=== PATIENT | male | born 1945 | race Caucasian/White ===

== ENCOUNTER 2017-10-15 13:35 | Inpatient (IN) ==
[2017-10-15 14:58] LABS: Basophils % 0.2 %; Eosinophils % 0.2 %; Hematocrit 28.5 % (37.5-50.1); Hemoglobin 9.5 g/dL (12.9-16.9); Immature Granulocytes % 0.5 % (0-4); Lymphocytes # 0.3 K/mcL (0.6-4.6); Lymphocytes % 7.1 %; Mean Corpuscular HGB Conc 33.3 g/dL (31.6-35.5); Mean Corpuscular Hemoglobin 30.9 pg (28.0-33.3); Mean Corpuscular Volume 92.8 fL (83.0-100.0); Mean Platelet Volume 9.5 fL (9.4-12.4); Monocytes # 0.3 K/mcL (0.0-1.3); Monocytes % 7.1 %; Neutrophils # 3.6 K/mcL (1.6-8.9); Platelet Count 305 K/mcL (140-400); Red Blood Count 3.07 M/mcL (4.19-5.50); Red Cell Distribution Width 16.6 % (11.5-14.5); Segmented Neutrophils % 84.9 %
[2017-10-15 15:04] LABS: INR 1.9; Prothrombin Time 20.4 Seconds (9.4-12.1)
[2017-10-15 15:18] LABS: Alanine Aminotransferase 79 Units/L (7-52); Albumin 3.3 g/dL (3.5-5.7); Albumin/Globulin Ratio 1.1 (1.1-2.2); Alkaline Phosphatase 231 Units/L (34-104); Aspartate Amino Transferase 97 Units/L (13-39); BUN/Creatinine Ratio 24 (6-26); Bilirubin,Total 2.2 mg/dL (0.3-1.0); Blood Urea Nitrogen 34 mg/dL (8-23); Calcium 8.9 mg/dL (8.6-10.3); Carbon Dioxide 24 mEq/L (23-29); Chloride 93 mEq/L (98-107); Globulin 3.1 g/dL (2.4-3.5); Glucose 157 mg/dL (70-105); Osmolality,Calculated 269 (280-300); Potassium 4.6 mEq/L (3.5-5.1); Sodium 124 mEq/L (136-145); Total Protein 6.4 g/dL (6.4-8.9); eGFR For African Americans > 60 (> 60); eGFR For Non-African Americans 50 (> 60)
[2017-10-15 15:39] LABS: Troponin I 0.04 ng/mL (< 0.04)
--- NOTE | 2017-10-15 16:54 | Electrocardiograph Report ---
[address] [address] Test Date: 2017-10-15 Pat Name: Cristofer Romero Department: 104 Room: Gender: M Chipper: : 1945 Requested By: Tawanda Fairbanks Order Number: [id number] Reading MD: Annelise Dexter Measurements Intervals [place] Rate: 96 P: RI: 0 QRS: 82 QRSD: 126 T: -74 QT: 362 QTc: 415 Interpretive Statements ATRIAL FIBRILLATION WITH ABERRANT CONDUCTION OR VENTRICULAR PREMATURE COMPLEXES INFERIOR MYOCARDIAL INFARCTION, OF INDETERMINATE AGE MODERATE T-WAVE ABNORMALITY, CONSIDER LATERAL ISCHEMIA Electronically Signed On 10-15-2017 16:52:41 EDT by Annelise Dexter
[2017-10-15] MEDS ORDERED: Hydrocortisone Sodium Succ 100 MG/2 ML VIAL IVP ONE (18:47)
--- NOTE | 2017-10-15 18:48 | Emergency Department Note ---
Disposition Clinical Impression: Hyponatremia, Elevated troponin, Generalized weakness Hypotension Qualifiers: Hypotension type: unspecified hypotension type Qualified Code(s): I95.9 - Hypotension, unspecified Anemia Qualifiers: Anemia type: unspecified type Qualified Code(s): D64.9 - Anemia, unspecified Disposition: Admitted As Inpatient Condition: Good Referrals: Franny Stubbs [employer] [Primary Care Provider] - Forms: ED Satisfaction Letter, Work/School Release Time of Disposition: 20:41 General Adult HPI - General Chief complaint: ED General Medical Stated complaint: Everything is wrong Time Seen by Provider: 10/15/17 18:05 Source: patient Mode of arrival: ambulatory Limitations: no limitations Nursing Notes Reviewed: Yes Vital Signs Reviewed: Yes - History of Present Illness HPI Narrative: 72-year-old male arrives to the emergency department with generalized weakness, dizziness, not feeling well. The patient states this is been ongoing for the past few weeks. The patient also states that over the past few days he was noted to be hypotensive with a home blood pressure medicine with a systolic blood pressure in 80s to 90s. The patient states he normally runs below 120s taking medications. The patient states that he went to PCP after calling after noting a hypertensive episode at home. He should systolic was 90 at PCP office and was instructed to come to the emergency department for further evaluation. There was concern for possible infection as well. Pain Scale: 3 - Related Data Home Medications Medication Instructions Recorded Confirmed ALPRAZolam [Xanax 0.5 MG Tablet] 0.5 mg PO BID #0 09/18/15 10/15/17 Ascorbate Calcium [Vitamin C] 1,000 mg PO DAILY #0 09/18/15 10/15/17 Aspirin 81 mg PO DAILY #0 09/18/15 10/15/17 Docusate [Colace] 200 mg PO DAILY #0 09/18/15 10/15/17 Doxepin HCl 50 mg PO BID #0 09/18/15 10/15/17 Furosemide [Lasix] 40 mg PO BID #0 09/18/15 10/15/17 Gabapentin [Neurontin] 300 mg PO BID #0 09/18/15 10/15/17 Multivit-Min/FA/Lycopen/Lutein 1 tab PO DAILY #0 09/18/15 10/15/17 [Adults 50+ Multivitamin Tablet] Potassium Chloride [K-Tab ER] 10 meq PO DAILY #0 09/18/15 10/15/17 Rosuvastatin [Crestor] 20 mg PO HS #0 09/18/15 10/15/17 Zolpidem [Ambien] 10 mg PO HS #0 09/18/15 10/15/17 Acetaminophen [Tylenol] 500 mg PO BID 01/23/16 10/15/17 Capsaicin [Arthritis Pain Relief] 1 appl TP TID PRN 01/23/16 10/15/17 Carboxymethylcellulose Sodium 1 drop BOTH EYES QID 01/23/16 10/15/17 [Refresh Tears] Nitroglycerin [Nitrostat] 0.4 mg SL Q5M PRN 01/23/16 10/15/17 Pantoprazole Sodium [Protonix] 40 mg PO DAILY 01/23/16 10/15/17 Insulin Glargine,Hum.rec.anlog 55 unit SQ HS 02/15/17 10/15/17 [Lantus Solostar] Fluticasone Propionate Nasal 2 spray NS DAILY PRN 04/11/17 10/15/17 [Flonase] Isosorbide MONOnitrate [Isosorbide 120 mg PO DAILY 04/11/17 10/15/17 Mononitrate ER] Loratadine [Allergy Relief] 10 mg PO DAILY 04/11/17 10/15/17 Metoprolol Succinate 250 mg PO DAILY 04/11/17 10/15/17 [place]-3/Dha/Epa/Fish Oil [Fish Oil 1,000 mg PO DAILY 04/11/17 10/15/17 1,000 mg Softgel] Ferrous Sulfate [Iron] 325 mg PO BID 10/15/17 10/15/17 Levothyroxine [Synthroid] 125 mcg PO 0630 10/15/17 10/15/17 Lisinopril 2.5 mg PO DAILY 10/15/17 10/15/17 glipiZIDE [Glipizide] 20 mg PO BID 10/15/17 10/15/17 Previous Rx's Medication Instructions Recorded Apixaban [Eliquis] 2.5 mg PO BID #90 tablet 01/26/16 Allergies Allergy/AdvReac Type Severity Reaction Status Date / Time tamsulosin Allergy Rash Verified 08/15/17 10:33 Penicillins AdvReac Mild Anaphylaxis Verified 08/15/17 10:33 All systems ED: reviewed and negative except as stated. Constitutional: Reports: chills, weakness. Denies: fever ENT ED: Denies: ear pain, congestion Cardiovascular: Denies: chest pain Respiratory: Reports: dyspnea. Denies: cough, wheezes Gastrointestinal: Denies: abdominal pain, nausea, vomiting, diarrhea, constipation Genitourinary: Reports: urgency, dysuria, frequency. Denies: hematuria, discharge, testicular pain Musculoskeletal: Denies: back pain, neck pain Integumentary: Denies: rash Neurological: Reports: weakness, vertigo. Denies: headache, numbness, paresthesias, confusion, abnormal gait Endocrine: Reports: fatigue Past Medical History - Past Medical History Attestation: Yes The following information was validated with the patient. Source: patient Medical history: Reports: aortic aneurysm, arthritis, atrial fibrillation, cardiomyopathy, CHF, coronary artery disease, DVT, diabetes, GERD, hyperlipidemia, hypertension, myocardial infarction, peripheral artery disease, thyroid disease, other Surgical history: Reports: angioplasty/stent, appendectomy, cholecystectomy, coronary bypass (CABG), LE Bypass, LE stent(s), LE vascular intervention, other Psychiatric history: Reports: anxiety, depression - Social History Smoking Status: Former smoker Smokeless Tobacco Status: No Alcohol use: Reports: heavy Drug use: Reports: none Physical Exam - General Limitations: no limitations General appearance: alert, in no apparent distress - Head Head exam: atraumatic, normocephalic, normal inspection - Neck Neck exam: Present: normal inspection, full ROM, trachea midline - Chest Chest inspection: Present: normal inspection, symmetric chest wall rise - Respiratory Respiratory exam: Present: normal lung sounds bilaterally - Cardiovascular Cardiovascular exam: Present: regular rate, normal rhythm, normal heart sounds - Abdominal Exam Abdominal exam: Present: soft, Non-Tender. Absent: tenderness, distention, guarding, rebound, rigidity - Extremities Exam Extremities exam: Present: normal inspection, full ROM. Absent: tenderness, pedal edema - Neurological Exam Neurological exam: Present: alert, oriented X3, CN II-XII intact, normal gait. Absent: motor sensory deficit Course Vital Signs Temperature 100.2 F H 10/15/17 13:56 Pulse Rate 90 10/15/17 13:56 Respiratory Rate 14 10/15/17 13:56 Blood Pressure 95/65 10/15/17 13:56 O2 Sat by Pulse Oximetry 94 10/15/17 13:56 Temperature 100.2 F H 10/15/17 13:56 Pulse Rate 74 10/15/17 18:43 Respiratory Rate 18 10/15/17 18:43 Blood Pressure 107/68 10/15/17 18:43 O2 Sat by Pulse Oximetry 97 10/15/17 18:43 Oxygen Delivery Oxygen Delivery Room Air Medical Decision Making - MDM Narrative Medical decision making narrative: Patient's workup here in the emergency department demonstrates a large number of electrolyte abnormalities to include hyponatremia, hypochloremia, elevated creatinine, elevated troponin at 0.04. He denies any chest pain and his EKG demonstrates no signs of ischemia. The patient is in chronic atrial fibrillation and is taking L [place]. The patient's hemoglobin is 9.5. He denies any hematochezia or melena. The patient's abdomen is soft and nontender. He does have some elevated liver enzymes which his family member states is associated with medication that he takes but they have not been this elevated in the past. The patient denies any other complaints. After conversation with the patient we will admit the patient to the hospital at this time. Patient made aware and agrees to plan. Accepted by Dr. Dunbar - Lab Data Lab results reviewed: Yes I reviewed the patient's lab results. Result diagrams: 10/15/17 14:46 10/15/17 14:46 Lab Results 10/15/17 10/15/17 10/15/17 Range/Units 14:46 14:46 14:46 WBC 4.2 L (4.3-11.1) K/mcL RBC 3.07 L (4.19-5.50) M/mcL Hgb 9.5 L (12.9-16.9) g/dL Hct 28.5 L (37.5-50.1) % MCV 92.8 (83.0-100.0) fL MCH 30.9 (28.0-33.3) pg MCHC 33.3 (31.6-35.5) g/dL RDW 16.6 H (11.5-14.5) % Plt Count 305 (140-400) K/mcL MPV 9.5 (9.4-12.4) fL Immature Gran % 0.5 (0-4) % Seg Neutrophils % 84.9 % Lymphocytes % 7.1 % Monocytes % 7.1 % Eosinophils % 0.2 % Basophils % 0.2 % Neutrophils # 3.6 (1.6-8.9) K/mcL Lymphocytes # 0.3 L (0.6-4.6) K/mcL Monocytes # 0.3 (0.0-1.3) K/mcL Eosinophils # 0.0 (0.0-0.6) K/mcL Basophils # 0.0 (0.0-0.2) K/mcL PT 20.4 H (9.4-12.1) Seconds INR 1.9 Sodium 124 L (136-145) mEq/L Potassium 4.6 (3.5-5.1) mEq/L Chloride 93 L (98-107) mEq/L Carbon Dioxide 24 (23-29) mEq/L BUN 34 H (8-23) mg/dL Creatinine 1.41 H (0.70-1.30) mg/dL Est GFR ( Amer) > 60 (> 60) Est GFR (Non-Af Amer) 50 L (> 60) BUN/Creatinine Ratio 24 (6-26) Glucose 157 H (70-105) mg/dL Calculated Osmolality 269 L (280-300) Lactic Acid (0.5-2.2) mmol/L Calcium 8.9 (8.6-10.3) mg/dL Total Bilirubin 2.2 H (0.3-1.0) mg/dL Direct Bilirubin 0.9 H (0.0-0.2) mg/dL Indirect Bilirubin 1.3 H (0.0-1.2) mg/dL AST 97 H (13-39) Units/L ALT 79 H (7-52) Units/L Alkaline Phosphatase 231 H (34-104) Units/L Lactate Dehydrogenase 248 (140-271) Units/L Troponin I 0.04 H* (< 0.04) ng/mL B-Natriuretic Peptide (Less than 100) pg/mL Serum Total Protein 6.4 (6.4-8.9) g/dL Albumin 3.3 L (3.5-5.7) g/dL Globulin 3.1 (2.4-3.5) g/dL Albumin/Globulin Ratio 1.1 (1.1-2.2) Urine Color (Yellow) Urine Clarity (Clear) Urine pH (5.0-8.0) pH Units Ur Specific [place] (1.010-1.025) Urine Protein (Neg-Trace) mg/dL Urine Glucose (UA) (Normal) mg/dL Urine Ketones (Negative) mg/dL Urine Blood (Negative) Urine Nitrite (Negative) Urine Bilirubin (Negative) Urine Urobilinogen (Normal) mg/dL Ur Leukocyte Esterase (Negative) Ur Culture Indicated? (NO) 10/15/17 10/15/17 10/15/17 Range/Units 14:46 18:09 18:44 WBC (4.3-11.1) K/mcL RBC (4.19-5.50) M/mcL Hgb (12.9-16.9) g/dL Hct (37.5-50.1) % MCV (83.0-100.0) fL MCH (28.0-33.3) pg MCHC (31.6-35.5) g/dL RDW (11.5-14.5) % Plt Count (140-400) K/mcL MPV (9.4-12.4) fL Immature Gran % (0-4) % Seg Neutrophils % % Lymphocytes % % Monocytes % % Eosinophils % % Basophils % % Neutrophils # (1.6-8.9) K/mcL Lymphocytes # (0.6-4.6) K/mcL Monocytes # (0.0-1.3) K/mcL Eosinophils # (0.0-0.6) K/mcL Basophils # (0.0-0.2) K/mcL PT (9.4-12.1) Seconds INR Sodium (136-145) mEq/L Potassium (3.5-5.1) mEq/L Chloride (98-107) mEq/L Carbon Dioxide (23-29) mEq/L BUN (8-23) mg/dL Creatinine (0.70-1.30) mg/dL Est GFR ( Amer) (> 60) Est GFR (Non-Af Amer) (> 60) BUN/Creatinine Ratio (6-26) Glucose (70-105) mg/dL Calculated Osmolality (280-300) Lactic Acid 1.7 (0.5-2.2) mmol/L Calcium (8.6-10.3) mg/dL Total Bilirubin (0.3-1.0) mg/dL Direct Bilirubin (0.0-0.2) mg/dL Indirect Bilirubin (0.0-1.2) mg/dL AST (13-39) Units/L ALT (7-52) Units/L Alkaline Phosphatase (34-104) Units/L Lactate Dehydrogenase (140-271) Units/L Troponin I (< 0.04) ng/mL B-Natriuretic Peptide 353 H (Less than 100) pg/mL Serum Total Protein (6.4-8.9) g/dL Albumin (3.5-5.7) g/dL Globulin (2.4-3.5) g/dL Albumin/Globulin Ratio (1.1-2.2) Urine Color Yellow (Yellow) Urine Clarity Clear (Clear) Urine pH 6.0 (5.0-8.0) pH Units Ur Specific [place] 1.015 (1.010-1.025) Urine Protein Trace (Neg-Trace) mg/dL Urine Glucose (UA) Normal (Normal) mg/dL Urine Ketones Negative (Negative) mg/dL Urine Blood Negative (Negative) Urine Nitrite Negative (Negative) Urine Bilirubin Negative (Negative) Urine Urobilinogen Normal (Normal) mg/dL Ur Leukocyte Esterase Negative (Negative) Ur Culture Indicated? NO (NO) - Radiology Data Radiology results reviewed: Yes I reviewed the patient's radiology results. - EKG Data EKG #1 EKG attestation: Yes I reviewed and interpreted this EKG. EKG results narrative: heart rate 96 bpm. in atrial fibrillation. No ST elevation or ST depression noted. Similar appearance to previous EKG morphology. No acute changes noted. Attestation Statement - Attestation Attestation: I, Osmel Frankel DO, examined this patient [id number] and my medical decision-making was reviewed with Nicholas Baker DO, Resident Physician. I agree with the documented findings, disposition and treatment plan as described except to the extent set forth below. Please see my progress notes for details. 72-year-old male seen and examined the time of arrival. Presents here today with multiple complaints including generalized malaise, chest pressure, nausea, exertional dyspnea. Patient was advised to come in the hospital today secondary to hypotension as outside provider's office. Patient has multiple abnormalities on his workup today including anemia, hyponatremia, elevated creatinine, elevated troponin. Patient is unknown etiology to his borderline fever initially. Influenza panel will be ordered at this time. Chest x-ray is unremarkable. EKG is stable presentation. Patient does not have any acute signs of myocardial infarction. Physical exam is unremarkable. Head is atraumatic pupils are round reactive to light extracting muscles are intact. Lungs are clear heart is regular abdomen is soft. Patient is inflammatory. Initially he is requesting to be discharged home. After lengthy discussion of the risk benefits and alternatives to this along with her concern secondary to the presentation multiple lab abnormalities patient decided to be admitted. Patient is otherwise clinically stable at this time. Continue monitoring. To the admission process is completed. No critical care by this patient's treatment course. See detailed documentation of the physical [place], medical intervention, medical decision-making and disposition in the resident physician' s note.
[2017-10-15 18:54] LABS: Bilirubin,Urine Negative (Negative); Blood,Urine Negative (Negative); Color,Urine Yellow (Yellow); Glucose,Urine (UA) Normal (Normal); Ketones,Urine Negative (Negative); Leukocyte Esterase,Urine Negative (Negative); Nitrite,Urine Negative (Negative); Protein,Urine Trace mg/dL (Neg-Trace); Specific Gravity,Urine 1.015 (1.010-1.025); Urobilinogen,Urine Normal (Normal)
[2017-10-15 18:57] LABS: Clarity,Urine Clear (Clear)
[2017-10-15 19:06] LABS: Bilirubin,Direct 0.9 mg/dL (0.0-0.2); Bilirubin,Indirect 1.3 mg/dL (0.0-1.2); Lactate Dehydrogenase 248 Units/L (140-271)
--- NOTE | 2017-10-16 02:05 | Internal Med History&Physical ---
Date of Encounter: 10/16/17 Time of Encounter: 02:03 Assessment and Plan (1) Generalized weakness Current visit: Yes Status: Acute Generalized weakness nonspecific possible contribution of anemia andhyponatremia (2) Hyponatremia Current visit: Yes Status: Acute Hyponatremia very likely hypoosmolar hyponatremia will consult nephrology (3) Hypotension Current visit: Yes Status: Acute Qualifiers: Hypotension type: unspecified hypotension type Qualified Code(s): I95.9 - Hypotension, unspecified (4) Atrial fibrillation Current visit: No Status: Acute Qualifiers: Atrial fibrillation type: unspecified Qualified Code(s): I48.91 - Unspecified atrial fibrillation (5) Type 2 diabetes mellitus Current visit: No Status: Chronic Chronic resume home medication and place on sliding scale Qualifiers: Diabetes mellitus termite exterminator helper insulin use: without termite exterminator helper use Diabetes mellitus complication status: with unspecified complications Qualified Code(s) : E11.8 - Type 2 diabetes mellitus with unspecified complications (6) Alcohol abuse Current visit: No Status: Chronic Chronic (7) CAD in [place] artery Current visit: No Status: Chronic Patient with history of CABG no chest pain has mildly elevated troponin (8) COPD (chronic obstructive pulmonary disease) Current visit: No Status: Chronic No active wheezing at present resume home medication Qualifiers: COPD type: unspecified COPD Qualified Code(s): J44.9 - Chronic obstructive pulmonary disease, unspecified (9) Chronic kidney disease Current visit: No Status: Chronic Chronic creatinine is at baseline Qualifiers: Chronic kidney disease stage: stage 3 (moderate) Qualified Code(s): N18.3 - Chronic kidney disease, stage 3 (moderate) (10) Obesity (BMI 30-39.9) Current visit: No Status: Chronic Internal Medicine - H&P: HPI Chief complaint: generalized weakness Admitted From: Emergency Dept Plans for Post Hospital Care: Home History of present illness: Mr. Romero is a 72 year old male Patient with history of aortic aneurysm measured 5.3 cm, obesity, atrial fibrillation on and liquids, cardiac myopathy EF 35%, CAD history of CABG, DVT, diabetes, high cholesterol, hypertension, PVD with the prior lower extremity stents, anxiety and depression and alcohol abuse. Patient was seen by PCP due to generalized weakness dizziness and not feeling well for about 2 weeks blood pressure was 90 systolic in the PCP office and sent him to the emergency room and evaluation patient was found to have hemoglobin 9.5 down from 11.7 August also hyponatremia sodium 124 with chronic renal failure patient will be admitted will consult nephrology BNP was mildly elevated the chest x-ray does not show pneumonia or l congestive heart failure CT of the abdomen shows stable aneurysm 5.3 Past Med Surg Social Fam HX - Past Medical History Medical history: aortic aneurysm, arthritis, atrial fibrillation, cardiomyopathy , CHF, coronary artery disease, DVT, diabetes, GERD, hyperlipidemia, hypertension, myocardial infarction, peripheral artery disease, thyroid disease , other Psychiatric history: anxiety, depression - Past Surgical History Surgical History: angioplasty/stent, appendectomy, cholecystectomy, coronary bypass (CABG), LE Bypass, LE stent(s), LE vascular intervention, other - Social History Smoking Status: Former smoker Smokeless Tobacco Status: No Alcohol use: heavy Drug use: none - Family History Mother Living Status: Hx Family Cardiac Disorders: No Hx Family Respiratory Disorders: No Hx Family Cancer: No Father Living Status: Hx Family Cardiac Disorders: Yes Hx Family Cancer: No Hx Family GI Disorders: No Internal Medicine - H&P: Meds ALPRAZolam [Xanax 0.5 MG Tablet] 0.5 mg PO BID #0 09/18/15 [History] Ascorbate Calcium [Vitamin C] 1,000 mg PO DAILY #0 09/18/15 [History] Aspirin 81 mg PO DAILY #0 09/18/15 [History] Docusate [Colace] 200 mg PO DAILY #0 09/18/15 [History] Doxepin HCl 50 mg PO BID #0 09/18/15 [History] Furosemide [Lasix] 40 mg PO BID #0 09/18/15 [History] Gabapentin [Neurontin] 300 mg PO BID #0 09/18/15 [History] Multivit-Min/FA/Lycopen/Lutein [Adults 50+ Multivitamin Tablet] 1 tab PO DAILY # 0 09/18/15 [History] Potassium Chloride [K-Tab ER] 10 meq PO DAILY #0 09/18/15 [History] Rosuvastatin [Crestor] 20 mg PO HS #0 09/18/15 [History] Zolpidem [Ambien] 10 mg PO HS #0 09/18/15 [History] Acetaminophen [Tylenol] 500 mg PO BID 01/23/16 [History] Capsaicin [Arthritis Pain Relief] 1 appl TP TID PRN 01/23/16 [History] Carboxymethylcellulose Sodium [Refresh Tears] 1 drop BOTH EYES QID 01/23/16 [ History] Nitroglycerin [Nitrostat] 0.4 mg SL Q5M PRN 01/23/16 [History] Pantoprazole Sodium [Protonix] 40 mg PO DAILY 01/23/16 [History] Apixaban [Eliquis] 2.5 mg PO BID #90 tablet 01/26/16 [Rx] Insulin Glargine,Hum.rec.anlog [Lantus Solostar] 55 unit SQ HS 02/15/17 [History ] Fluticasone Propionate Nasal [Flonase] 2 spray NS DAILY PRN 04/11/17 [History] Isosorbide MONOnitrate [Isosorbide Mononitrate ER] 120 mg PO DAILY 04/11/17 [ History] Loratadine [Allergy Relief] 10 mg PO DAILY 04/11/17 [History] Metoprolol Succinate 250 mg PO DAILY 04/11/17 [History] [place]-3/Dha/Epa/Fish Oil [Fish Oil 1,000 mg Softgel] 1,000 mg PO DAILY 04/11/17 [History] Ferrous Sulfate [Iron] 325 mg PO BID 10/15/17 [History] Levothyroxine [Synthroid] 125 mcg PO 0630 10/15/17 [History] Lisinopril 2.5 mg PO DAILY 10/15/17 [History] glipiZIDE [Glipizide] 20 mg PO BID 10/15/17 [History] 3 Allergy/AdvReac Type Severity Reaction Status Date / Time tamsulosin Allergy Rash Verified 08/15/17 10:33 Penicillins AdvReac Mild Anaphylaxis Verified 08/15/17 10:33 All Systems PM: A 10-system review of systems was performed and is negative for pertinent findings except as documented above in the HPI. - Constitutional Constitutional: malaise, weakness - EENT Eyes: no change in vision, no discharge, no pain, no photophobia Ears: no ear discharge, no ear pain, no tinnitus Nose, mouth and throat: no dysphagia, no nasal discharge, no neck pain, no sore throat - Cardiovascular Cardiovascular ROS IM: dyspnea on exertion - Respiratory Respiratory: dyspnea on exertion - Gastrointestinal Gastrointestinal: no abdominal pain, no diarrhea, no hematemesis, no hematochezia, no melena, no nausea, no vomiting - Musculoskeletal Musculoskeletal ROS IM: no numbness, no tingling - Constitutional Vitals: Temp Pulse Resp BP Pulse Ox 98.8 F 95 14 112/55 95 10/15/17 23:25 10/15/17 23:25 10/15/17 23:25 10/15/17 23:25 10/15/17 23:25 - Eye Eye exam: Present: PERRL, conjuntiva pink, sclera anicteric Pupils: Present: PERRL - Neck Neck exam general surgery: Present: supple, trachea midline. Absent: lymphadenopathy - Respiratory Respiratory exam: Present: rhonchi - Cardiovascular Cardiovascular exam: Present: systolic murmur - GI/Abdominal GI/Abdominal exam: Present: normal bowel sounds, soft, no peritoneal signs. Absent: distended, tenderness Internal Med - H&P Results - Labs CBC & Chem 7: 10/15/17 14:46 10/15/17 14:46
[2017-10-16] MEDS ORDERED: Naloxone 0.4 MG/ML INJ IVP PRN (02:13)
[2017-10-16] MEDS ORDERED: Acetaminophen 325 MG TABLET PO PRN (02:13)
[2017-10-16] MEDS ORDERED: Capsaicin 0.025% 60 GM TUBE TP PRN (02:16)
[2017-10-16] MEDS ORDERED: Fluticasone Propionate Nasal 50 MCG/SPRAY BOTTLE NS PRN (02:16)
[2017-10-16 05:03] LABS: Alanine Aminotransferase 72 Units/L (7-52); Albumin 3.4 g/dL (3.5-5.7); Albumin/Globulin Ratio 1.1 (1.1-2.2); Alkaline Phosphatase 216 Units/L (34-104); Aspartate Amino Transferase 87 Units/L (13-39); BUN/Creatinine Ratio 24 (6-26); Bilirubin,Total 2.5 mg/dL (0.3-1.0); Blood Urea Nitrogen 29 mg/dL (8-23); Calcium 9.3 mg/dL (8.6-10.3); Carbon Dioxide 24 mEq/L (23-29); Chloride 95 mEq/L (98-107); Glucose 98 mg/dL (70-105); Magnesium 1.9 mg/dL (1.6-2.6); Osmolality,Calculated 272 (280-300); Potassium 4.2 mEq/L (3.5-5.1); Sodium 128 mEq/L (136-145); Total Protein 6.4 g/dL (6.4-8.9); eGFR For African Americans > 60 (> 60); eGFR For Non-African Americans > 60 (> 60)
[2017-10-16] MEDS ORDERED: *HR* Enoxaparin 40 MG/0.4 ML SYRINGE SQ SCH (06:00)
[2017-10-16] MEDS ORDERED: Ondansetron 4 MG/2 ML VIAL IVP PRN (06:06)
[2017-10-16 08:21] LABS: Basophils % 0.6 %; Eosinophils % 0.3 %; Hematocrit 27.2 % (37.5-50.1); Hemoglobin 9.2 g/dL (12.9-16.9); Immature Granulocytes % 0.6 % (0-4); Lymphocytes # 0.4 K/mcL (0.6-4.6); Lymphocytes % 12.7 %; Mean Corpuscular HGB Conc 33.8 g/dL (31.6-35.5); Mean Corpuscular Hemoglobin 31.2 pg (28.0-33.3); Mean Corpuscular Volume 92.2 fL (83.0-100.0); Mean Platelet Volume 9.4 fL (9.4-12.4); Monocytes # 0.3 K/mcL (0.0-1.3); Monocytes % 9.1 %; Neutrophils # 2.5 K/mcL (1.6-8.9); Platelet Count 275 K/mcL (140-400); Red Blood Count 2.95 M/mcL (4.19-5.50); Red Cell Distribution Width 16.5 % (11.5-14.5); Segmented Neutrophils % 76.7 %
[2017-10-16] MEDS ORDERED: (Carboxymethylcellulose Sodium [Refresh Tears] 1 DROP) OP SCH (09:00)
[2017-10-16] MEDS: *HR* GlipiZIDE 5 MG TABLET PO SCH ×2 (10:00→21:41)
[2017-10-16] MEDS: ALPRAZolam 0.5 MG TABLET PO SCH ×2 (10:00→21:39)
[2017-10-16] MEDS: Multivit/Ca/Min/Fe/FA 1 TAB TABLET PO SCH (10:00)
[2017-10-16] MEDS: Apixaban 5 MG TABLET PO SCH ×2 (10:01→21:40)
[2017-10-16] MEDS: Ascorbic Acid 500 MG TABLET PO SCH (10:01)
[2017-10-16] MEDS: Gabapentin 300 MG CAPSULE PO SCH ×2 (10:01→21:39)
[2017-10-16] MEDS: Aspirin 81 MG TAB.CHEW PO SCH (10:01)
[2017-10-16] MEDS: Loratadine 10 MG TABLET PO SCH (10:01)
[2017-10-16] MEDS: (Omega-3/Dha/Epa/Fish Oil [Fish Oil 1,000 Mg Softgel]) PO SCH (10:02)
[2017-10-16] MEDS: Artificial Tears SOLN 15 ML BOTTLE BOTH EYES SCH ×4 (12:35→21:44)
[2017-10-16 15:14] LABS: Albumin 3.4 g/dL (3.5-5.7); Albumin/Globulin Ratio 1.2 (1.1-2.2); Bilirubin,Indirect 1.5 mg/dL (0.0-1.2); Bilirubin,Total 2.5 mg/dL (0.3-1.0); Globulin 2.9 g/dL (2.4-3.5); Total Protein 6.3 g/dL (6.4-8.9)
--- NOTE | 2017-10-16 17:38 | Nephrology Consult Note ---
Date of Encounter: 10/16/17 Time of Encounter: 12:40 Assessment and Plan (1) Hyponatremia Current Visit: Yes Status: Acute Likely hypovolemic hyponatremia due to diuretics with noted hypotension Agree with holding diuretic No need for IVF for now Increase sodium in diet but limit pt's fluid drinking to 2liters a day Will check urine, serum osmolality Will check TSH, cortisol and uric acid levels (2) FRANCES (acute kidney injury) Current Visit: No Status: Acute Resolving with diuretics held History of Present Illness - Reason for Consult Consult date: 10/16/17 hyponatremia Requesting physician: Tashi Oquendo - History of Present Illness 72 y o male with PMH of DM, HTN, CAD s/p NM, AAA at 5.3cm, CHF with EF at 35% admitted with generalized weakness and noted hypotensive. Renal consulted for management of his hyponatremia noted at 124 on presentation, improving to 128 today already off diuretics. Of note, pt takes diuretics with lasix 40mg bid. Per daughter he also drinks lots of fluids as he is always thirsty. He denies any N/V/D. Scr noted at 1.41, GFR 50 on presentation which is actually better than previous readings and improve even more at 1.19, GFR >60 this am. Past Med Surg Social Fam HX - Past Medical History Medical history: aortic aneurysm, arthritis, atrial fibrillation, cardiomyopathy , CHF, coronary artery disease, DVT, diabetes, GERD, hyperlipidemia, hypertension, myocardial infarction, peripheral artery disease, thyroid disease , other Psychiatric history: anxiety, depression - Past Surgical History Surgical History: angioplasty/stent, appendectomy, cholecystectomy, coronary bypass (CABG), LE Bypass, LE stent(s), LE vascular intervention, other - Social History Smoking Status: Former smoker Smokeless Tobacco Status: No Alcohol use: heavy Drug use: none - Family History Mother Living Status: Hx Family Cardiac Disorders: No Hx Family Respiratory Disorders: No Hx Family Cancer: No Father Living Status: Hx Family Cardiac Disorders: Yes Hx Family Cancer: No Hx Family GI Disorders: No Medications and Allergies ALPRAZolam [Xanax 0.5 MG Tablet] 0.5 mg PO BID #0 09/18/15 [History] Ascorbate Calcium [Vitamin C] 1,000 mg PO DAILY #0 09/18/15 [History] Aspirin 81 mg PO DAILY #0 09/18/15 [History] Docusate [Colace] 200 mg PO DAILY #0 09/18/15 [History] Doxepin HCl 50 mg PO BID #0 09/18/15 [History] Furosemide [Lasix] 40 mg PO BID #0 09/18/15 [History] Gabapentin [Neurontin] 300 mg PO BID #0 09/18/15 [History] Multivit-Min/FA/Lycopen/Lutein [Adults 50+ Multivitamin Tablet] 1 tab PO DAILY # 0 09/18/15 [History] Potassium Chloride [K-Tab ER] 10 meq PO DAILY #0 09/18/15 [History] Rosuvastatin [Crestor] 20 mg PO HS #0 09/18/15 [History] Zolpidem [Ambien] 10 mg PO HS #0 09/18/15 [History] Acetaminophen [Tylenol] 500 mg PO BID 01/23/16 [History] Capsaicin [Arthritis Pain Relief] 1 appl TP TID PRN 01/23/16 [History] Carboxymethylcellulose Sodium [Refresh Tears] 1 drop BOTH EYES QID 01/23/16 [ History] Nitroglycerin [Nitrostat] 0.4 mg SL Q5M PRN 01/23/16 [History] Pantoprazole Sodium [Protonix] 40 mg PO DAILY 01/23/16 [History] Apixaban [Eliquis] 2.5 mg PO BID #90 tablet 01/26/16 [Rx] Insulin Glargine,Hum.rec.anlog [Lantus Solostar] 55 unit SQ HS 02/15/17 [History ] Fluticasone Propionate Nasal [Flonase] 2 spray NS DAILY PRN 04/11/17 [History] Isosorbide MONOnitrate [Isosorbide Mononitrate ER] 120 mg PO DAILY 04/11/17 [ History] Loratadine [Allergy Relief] 10 mg PO DAILY 04/11/17 [History] Metoprolol Succinate 250 mg PO DAILY 04/11/17 [History] [place]-3/Dha/Epa/Fish Oil [Fish Oil 1,000 mg Softgel] 1,000 mg PO DAILY 04/11/17 [History] Ferrous Sulfate [Iron] 325 mg PO BID 10/15/17 [History] Levothyroxine [Synthroid] 125 mcg PO 0630 10/15/17 [History] Lisinopril 2.5 mg PO DAILY 10/15/17 [History] glipiZIDE [Glipizide] 20 mg PO BID 10/15/17 [History] 3 Allergy/AdvReac Type Severity Reaction Status Date / Time tamsulosin Allergy Rash Verified 08/15/17 10:33 Penicillins AdvReac Mild Anaphylaxis Verified 08/15/17 10:33 Review of Systems All Systems: reviewed and no additional remarkable complaints except as stated ( 10 system reviewed) Exam - Vital Signs Vital signs: Initial Vital Signs Temp Pulse Resp BP Pulse Ox 100.2 F H 90 14 95/65 94 10/15/17 13:56 10/15/17 13:56 10/15/17 13:56 10/15/17 13:56 10/15/17 13:56 Vital Signs - Last 8 Hours Temp Pulse Resp BP Pulse Ox 10/16/17 15:48 97.5 F L 75 18 103/67 95 10/16/17 11:17 98.2 F 59 15 105/67 93 Intake and Output 10/16/17 10/16/17 10/16/17 07:59 15:59 23:59 Intake Total 300 / 300 360 / 360 Balance 300 / 300 360 / 360 Intake: Oral 300 / 300 360 / 360 Other: Meal Lunch Percent of Meal Consumed 10% # Voids 1 - General Appearance General appearance: chronically ill EENT: ATNC, scleral icterus Neck: no JVD, supple Additional Comments: good areation ant bilat with decerased BS bases Cardiology: edema (LE bilat), normal S1, normal S2 Gastrointestinal: no tenderness, no guarding Integumentary: warm and dry Neurologic: no focal deficit Musculoskeletal: no deformities Psychiatric: mood/affect appropriate, cooperative Results - Lab Results 10/16/17 08:04 10/16/17 03:11 Most recent lab results Calcium 9.3 mg/dL (8.6-10.3) 10/16/17 03:11 Magnesium 1.9 mg/dL (1.6-2.6) 10/16/17 03:11 Consult Discharge Plan - Plan Referrals: Franny Stubbs, OPS ANALYST [Primary Care Provider] -
--- NOTE | 2017-10-16 19:04 | Internal Med Progress Note ---
Date of Encounter: 10/16/17 Time of Encounter: 10:55 - Assessment and plan (1) Hyponatremia Current Visit: Yes Status: Acute Assessment and plan: Patient with hypoosmolar hyponatremia with low serum osmolality. Patient has been placed on a fluid restriction and nephrology has been consulted. Sodium has increased mildly from admission from 124-128. Continue fluid restriction and continue to monitor labs. (2) FRANCES (acute kidney injury) Current Visit: Yes Status: Acute Assessment and plan: Acute on chronic. Patient was stage III chronic kidney disease the patient denies that he sees nephrology. AK I appears to have resolved serum creatinine 1.19 GFR is 60. Continue monitor fluid electrolyte balance and avoid nephrotoxins. Nephrology is on board and following, I appreciate her recommendations for consultation. (3) Elevated troponin Current Visit: Yes Status: Acute Assessment and plan: Flat and adynamic troponin elevation in the setting of CHF and chronic kidney disease. Continue to monitor. Patient denies chest pain. Consider cardiology consultation if no improvement. (4) Generalized weakness Current Visit: Yes Status: Acute Assessment and plan: Patient reports increasing generalized weakness for the last 2-3 weeks. Likely multifactorial due to anemia, hyponatremia, deconditioning. PT/OT consultation ordered and pending monitor for falls and safety. (5) Hypotension Current Visit: Yes Status: Resolved Assessment and plan: Resolved. Continue to monitor vital signs. Qualifiers: Hypotension type: unspecified hypotension type Qualified Code(s): I95.9 - Hypotension, unspecified (6) Anemia Current Visit: Yes Status: Chronic Assessment and plan: With chronic anemia, likely due to chronic disease and iron deficiency anemia. This appears to be around patient's baseline, continue to monitor and transfuse if hemoglobin less than 8. Patient with normal B12 and folate in August,. Iron level was within normal limits, percent saturation was mildly decreased at 13%. Ferritin was within normal limits. Continue ferrous sulfate 325 mg by mouth twice a day. Qualifiers: Anemia type: iron deficiency Qualified Code(s): D50.9 - Iron deficiency anemia, unspecified (7) Chronic kidney disease Current Visit: Yes Status: Chronic Assessment and plan: Plan as above. Qualifiers: Chronic kidney disease stage: stage 3 (moderate) Qualified Code(s): N18.3 - Chronic kidney disease, stage 3 (moderate) (8) Obesity (BMI 30-39.9) Current Visit: Yes Status: Chronic Assessment and plan: Chronic. (9) Type 2 diabetes mellitus Current Visit: Yes Status: Chronic Assessment and plan: Hemoglobin A1c 7.1% September. Continue sliding scale insulin, Accu-Cheks before meals and at bedtime, diabetic diet Qualifiers: Diabetes mellitus lobsterman insulin use: without lobsterman use Diabetes mellitus complication status: with unspecified complications Qualified Code(s) : E11.8 - Type 2 diabetes mellitus with unspecified complications (10) CHF (congestive heart failure) Current Visit: Yes Status: Acute Assessment and plan: Acute exacerbation of chronic systolic CHF. BNP is elevated, patient appears to be in fluid overload. Echocardiogram today showed an LVEF of 40-45% with a mildly dilated left ventricle. Grossly, no segmental LV systolic dysfunction involving the inferior segments. Patient with wheezing and rales posteriorly, increasing peripheral edema, right greater than left. Doppler has been ordered to evaluate right lower extremity. Chest x-ray showed no focal consolidation, mild cardiomegaly chronic blunting at the right costophrenic angle. Patient has not been following fluid restriction has been drinking a lot of fluids. Continue telemetry Continue fluid restriction, strict I and O, daily weights. Continue Bumex by mouth, increase as needed. Qualifiers: Heart failure type: systolic Heart failure chronicity: acute on chronic Qualified Code(s): I50.23 - Acute on chronic systolic (congestive) heart failure - Subjective Interval history: Patient was seen and assessed at 10:55 AM. Patient's son was at the bedside. Patient appeared to have intermittent confusion introducing to his son as his friend. Patient also appeared to have difficulty concentrating and answering questions with long pauses between question and answer while patient stared at the door. Son appeared to be puzzled by this behavior and stated that this was not his baseline. She denies any headache or abdominal pain and states that he is eating well. He states that he has been having weakness for the last 2-3 weeks and was sent by his primary care provider yesterday for evaluation of hypotension. She denies any knowledge of chronic kidney disease and states that he has never seen nephrology before. - Constitutional Vitals: Temp Pulse Resp BP Pulse Ox 97.5 F L 75 18 103/67 95 10/16/17 15:48 10/16/17 15:48 10/16/17 15:48 10/16/17 15:48 10/16/17 15:48 General appearance: Present: cooperative, A&O X 2, pleasant, obese, answers questions appropriately Exam: Slow to respond. - Head Head exam: Present: normal inspection - Eye Eye exam: Present: scleral icterus, conjuntiva pink. Absent: sclera anicteric - Neck Neck exam general surgery: Present: supple, trachea midline. Absent: lymphadenopathy - Respiratory Respiratory exam: Present: wheezes. Absent: accessory muscle use, chest wall tenderness, CTAB, prolonged expiratory phase, rales, rhonchi - Cardiovascular Cardiovascular exam: Present: RRR, +S1, +S2. Absent: diastolic murmur, gallop, rubs, systolic murmur - GI/Abdominal GI/Abdominal exam: Present: distended, normal bowel sounds, soft. Absent: tenderness - Extremities Exam Extremities exam: Present: normal capillary refill, normal inspection, pedal edema, warm, radial pulses palpable and symmetrical. Absent: calf tenderness, cyanotic, tenderness - Neurological Exam Neurological exam: Present: alert, oriented X3, no focal deficits. Absent: facial droop, speech deficit - Skin Skin exam: Present: dry, intact, normal color, warm. Absent: rash Internal Medicine: Result - Labs CBC & Chem 7: 10/16/17 08:04 10/16/17 03:11 Labs: Short CBC 10/16/17 Range/Units 08:04 WBC 3.3 L (4.3-11.1) K/mcL Hgb 9.2 L (12.9-16.9) g/dL Hct 27.2 L (37.5-50.1) % Plt Count 275 (140-400) K/mcL Neutrophils # 2.5 (1.6-8.9) K/mcL BMP 10/16/17 03:11 Sodium 128 L Potassium 4.2 Chloride 95 L Carbon Dioxide 24 BUN 29 H Creatinine 1.19 Glucose 98 Calcium 9.3 Cardiac Enzymes 10/16/17 10/16/17 10/16/17 Range/Units 03:11 08:04 14:06 Troponin I 0.05 H* 0.05 H* 0.04 H* (< 0.04) ng/mL Liver Function 10/16/17 10/16/17 Range/Units 03:11 14:06 Total Bilirubin 2.5 H 2.5 H (0.3-1.0) mg/dL Direct Bilirubin 1.0 H (0.0-0.2) mg/dL AST 87 H 95 H (13-39) Units/L ALT 72 H 75 H (7-52) Units/L Alkaline Phosphatase 216 H 219 H (34-104) Units/L Albumin 3.4 L 3.4 L (3.5-5.7) g/dL - ABG Interpretation ABG results: PT/INR, D-dimer PT 20.4 Seconds (9.4-12.1) H 10/15/17 14:46 - Impressions Impressions Echocardiogram Limited Views 10/16/17 07:58 Impressions: LVEF 40-45%. Mildly dilated left ventricle. Atypical septal motion consistent with post-operative status. Grossly, segmental left ventricular systolic dysfunction involving the inferior segments. Future studies should be completed with Definity contrast. Left Ventricular Wall Motion: Rest Echo Findings The mid inferior and basal inferior rich were hypokinetic. All other wall segments showed normal motion. Findings: Study Quality * Technically sub-optimal due to poor echocardiographic windows. ECG Findings * Difficult to determine rhythm. Bundle branch block noted. Left Ventricle * LVEF 40-45%. * Mildly dilated left ventricle. * Atypical septal motion consistent with post-operative status. * Grossly, segmental left ventricular systolic dysfunction involving the inferior segments. Consult Discharge Plan - Plan Referrals: Franny Stubbs, MARCOS [Primary Care Provider] -
[2017-10-16] MEDS: Insulin DETEMIR 100 UNIT/ML X5UNITS SQ SCH (21:42)
[2017-10-16] MEDS: Bumetanide 1 MG TABLET PO SCH (22:37)
[2017-10-17 04:21] LABS: Basophils % 0.3 %; Hematocrit 29.7 % (37.5-50.1); Hemoglobin 9.9 g/dL (12.9-16.9); Immature Granulocytes % 0.3 % (0-4); Lymphocytes % 15.4 %; Mean Corpuscular HGB Conc 33.3 g/dL (31.6-35.5); Mean Corpuscular Volume 93.1 fL (83.0-100.0); Mean Platelet Volume 9.5 fL (9.4-12.4); Monocytes % 9.8 %; Platelet Count 295 K/mcL (140-400); Red Blood Count 3.19 M/mcL (4.19-5.50); Red Cell Distribution Width 16.6 % (11.5-14.5); Segmented Neutrophils % 73.2 %
[2017-10-17 04:22] LABS: Lymphocytes # 0.4 K/mcL (0.6-4.6); Monocytes # 0.3 K/mcL (0.0-1.3); Neutrophils # 2.1 K/mcL (1.6-8.9)
[2017-10-17 04:34] LABS: BUN/Creatinine Ratio 18 (6-26); Blood Urea Nitrogen 20 mg/dL (8-23); Calcium 9.3 mg/dL (8.6-10.3); Carbon Dioxide 25 mEq/L (23-29); Chloride 98 mEq/L (98-107); Glucose 56 mg/dL (70-105); Osmolality,Calculated 272 (280-300); Sodium 131 mEq/L (136-145); eGFR For African Americans > 60 (> 60); eGFR For Non-African Americans > 60 (> 60)
[2017-10-17] MEDS: Ascorbic Acid 500 MG TABLET PO SCH (08:36)
[2017-10-17] MEDS: Aspirin 81 MG TAB.CHEW PO SCH (08:36)
[2017-10-17] MEDS: *HR* GlipiZIDE 5 MG TABLET PO SCH (08:36)
[2017-10-17] MEDS: ALPRAZolam 0.5 MG TABLET PO SCH ×2 (08:36→21:43)
[2017-10-17] MEDS: Loratadine 10 MG TABLET PO SCH (08:36)
[2017-10-17] MEDS: Gabapentin 300 MG CAPSULE PO SCH ×2 (08:36→21:43)
[2017-10-17] MEDS: Multivit/Ca/Min/Fe/FA 1 TAB TABLET PO SCH (08:36)
[2017-10-17] MEDS: Apixaban 5 MG TABLET PO SCH ×2 (08:37→21:43)
[2017-10-17] MEDS: Bumetanide 1 MG TABLET PO SCH ×2 (08:38→17:17)
[2017-10-17] MEDS: Artificial Tears SOLN 15 ML BOTTLE BOTH EYES SCH ×4 (08:38→21:43)
[2017-10-17] MEDS: (Omega-3/Dha/Epa/Fish Oil [Fish Oil 1,000 Mg Softgel]) PO SCH (08:38)
[2017-10-17] MEDS ORDERED: Dextrose Gel 15 GM/37.5 ML TUBE PO PRN ×2 (14:54)
[2017-10-17] MEDS ORDERED: D5% in Water 1,000 ML IVC PRN (14:54)
[2017-10-17] MEDS ORDERED: *HR* Dextrose 50 % in Water (Syg) 50 ML SYRINGE IVP PRN (14:54)
[2017-10-17] MEDS ORDERED: Neosporin OINT 1 APPL PACKET TP ONE (16:35)
[2017-10-17] MEDS: Insulin LISPRO 300 UNITS/3 ML VIAL SQ SCH ×2 (17:16→22:25)
--- NOTE | 2017-10-17 18:04 | Internal Med Progress Note ---
Date of Encounter: 10/17/17 Time of Encounter: 10:00 - Assessment and plan (1) Hyponatremia Current Visit: Yes Status: Acute Assessment and plan: Improving. 131 today. Continue sodium restriction, diuresis. Continue to monitor labs daily. Nephrology following. (2) FRANCES (acute kidney injury) Current Visit: Yes Status: Resolved Assessment and plan: Resolved. (3) Elevated troponin Current Visit: Yes Status: Acute Assessment and plan: Flat and adynamic in the setting of CHF and CKD. Patient denies chest pain. Continue telemetry (4) Generalized weakness Current Visit: Yes Status: Acute Assessment and plan: Increasing weakness for last 2-3 weeks. Likely multifactorial due to chronic illnesses, anemia, physical deconditioning. Physical therapy recommends a wheeled walker as well as outpatient physical therapy after discharge. (5) Hypotension Current Visit: Yes Status: Resolved Assessment and plan: Resolved. Qualifiers: Hypotension type: unspecified hypotension type Qualified Code(s): I95.9 - Hypotension, unspecified (6) Anemia Current Visit: Yes Status: Chronic Assessment and plan: Hemoglobin stable, has increased little today. Likely due to chronic disease and iron deficiency anemia. Monitor and transfuse if hemoglobin is less than 8. B12 and folate normal in August,. Iron level, percent sat was mildly decreased at 13% in August. Ferritin was within normal limits. Continue ferrous sulfate 325 mg by mouth twice daily. Qualifiers: Anemia type: iron deficiency Qualified Code(s): D50.9 - Iron deficiency anemia, unspecified (7) Chronic kidney disease Current Visit: Yes Status: Chronic Assessment and plan: Plan as above. Nephrology is following. Avoid nephrotoxins. Qualifiers: Chronic kidney disease stage: stage 3 (moderate) Qualified Code(s): N18.3 - Chronic kidney disease, stage 3 (moderate) (8) Obesity (BMI 30-39.9) Current Visit: Yes Status: Chronic Assessment and plan: Chronic. (9) Type 2 diabetes mellitus Current Visit: Yes Status: Chronic Assessment and plan: Continue sliding scale insulin, Accu-Cheks before meals at bedtime, diabetic/ fluid restriction/low-sodium diet. Qualifiers: Diabetes mellitus manager long term care insulin use: without manager long term care use Diabetes mellitus complication status: with unspecified complications Qualified Code(s) : E11.8 - Type 2 diabetes mellitus with unspecified complications (10) CHF (congestive heart failure) Current Visit: Yes Status: Acute Assessment and plan: Acute exacerbation of chronic systolic CHF. BNP is elevated, patient appears to be in fluid overload, but is improving with diuresis and fluid restriction.. Echocardiogram showed an LVEF of 40-45% with a mildly dilated left ventricle. Grossly, no segmental LV systolic dysfunction involving the inferior segments. Patient with wheezing posteriorly, improving peripheral edema, right greater than left. Right lower extremity Doppler negative for DVT. Chest x-ray negative for acute process Continue telemetry Continue fluid restriction, strict I and O, daily weights. Continue Bumex by mouth, increase as needed. Qualifiers: Qualifiers: Heart failure type: systolic Heart failure chronicity: acute on chronic Qualified Code(s): I50.23 - Acute on chronic systolic (congestive) heart failure - Time Spent With Patient less than 15 minutes - Subjective Interval history: Patient was seen and assessed at 10:00 AM. Patient denies any headache or abdominal pain and states that he is eating well. Patient reports today that he feels significantly better. He denies chest pain and is not confused during assessment. Patient is alert and oriented answers questions appropriately. - Constitutional Vitals: Temp Pulse Resp BP Pulse Ox 98.0 F 82 18 117/77 99 10/17/17 16:08 10/17/17 16:08 10/17/17 16:08 10/17/17 16:08 10/17/17 16:08 General appearance: Present: cooperative, A&O X 2, pleasant, no acute distress, obese, answers questions appropriately - Head Head exam: Present: atraumatic, normal inspection, normocephalic - Eye Eye exam: Present: normal appearance, conjuntiva pink, sclera anicteric - Neck Neck exam general surgery: Present: supple, trachea midline. Absent: lymphadenopathy - Respiratory Respiratory exam: Present: wheezes. Absent: accessory muscle use, chest wall tenderness, decreased breath sounds, CTAB, rales, respiratory distress, rhonchi - Cardiovascular Cardiovascular exam: Present: RRR, +S1, +S2. Absent: diastolic murmur, gallop, rubs, systolic murmur - GI/Abdominal GI/Abdominal exam: Present: normal bowel sounds, soft. Absent: distended, hepatomegaly, tenderness - Extremities Exam Extremities exam: Present: normal capillary refill, normal inspection, warm, radial pulses palpable and symmetrical. Absent: calf tenderness, cyanotic, pedal edema, tenderness - Neurological Exam Neurological exam: Present: alert, oriented X3, no focal deficits. Absent: facial droop, speech deficit - Skin Skin exam: Present: dry, intact, pallor, warm. Absent: rash Additional comments: Patient mildly jaundiced. Internal Medicine: Result - Labs CBC & Chem 7: 10/17/17 03:41 10/17/17 03:41 Labs: Short CBC 10/17/17 Range/Units 03:41 WBC 2.9 L (4.3-11.1) K/mcL Hgb 9.9 L (12.9-16.9) g/dL Hct 29.7 L (37.5-50.1) % Plt Count 295 (140-400) K/mcL Neutrophils # 2.1 (1.6-8.9) K/mcL BMP 10/17/17 03:41 Sodium 131 L Potassium 4.0 Chloride 98 Carbon Dioxide 25 BUN 20 Creatinine 1.12 Glucose 56 L Calcium 9.3 - ABG Interpretation ABG results: PT/INR, D-dimer PT 20.4 Seconds (9.4-12.1) H 10/15/17 14:46 Consult Discharge Plan - Plan Referrals: Franny Stubbs, [employer] [Primary Care Provider] -
--- NOTE | 2017-10-17 18:06 | Nephrology Progress Note ---
Date of Encounter: 10/17/17 Time of Encounter: 12:00 - Assessment and Plan (1) Hyponatremia Status: Acute Sodium improved at 131 off diuretics confirming hypovolemic hyponatremia Will continue off diuretic today Will continue fluid restriction today Will need diuretics resumed at a lower dose upon discharge and we will be happy to follow him outpatient for this. Dr Mancia will take over for the group in the am tomorrow (2) FRANCES (acute kidney injury) Status: Resolved SCr remains normalized with GFR >60 off diuretics Subjective Interval history: Pt seen and examined with no new complaints. Objective - Vital Signs Vital signs: Vital Signs Temp Pulse Resp BP Pulse Ox 10/17/17 16:08 98.0 F 82 18 117/77 99 10/17/17 12:01 97.5 F L 84 17 119/80 94 10/17/17 06:52 98.6 F 93 16 148/65 96 10/17/17 02:29 97.9 F 92 17 119/67 90 10/16/17 23:04 98.8 F 59 17 99/63 95 10/16/17 19:32 99.9 F H 88 17 141/76 99 Intake and Output 10/17/17 10/17/17 10/17/17 07:59 15:59 23:59 Other: Weight 104.644 kg Blood Glucose* 232 134 Patient Weight 10/17/17 23:59 Weight 104.644 kg - General Appearance General appearance: Present: chronically ill EENT: Present: ATNC, scleral icterus Neck: Present: no JVD Additional Comments: good areation ant bilat Cardiology: Present: edema, normal S1, normal S2 Gastrointestinal: Present: no tenderness, no guarding Integumentary: Present: warm and dry Neurologic: Present: no focal deficit Musculoskeletal: Present: no deformities Psychiatric: Present: mood/affect appropriate - Lab 10/20/17 06:30 10/20/17 06:30 Most recent lab results Calcium 9.3 mg/dL (8.6-10.3) 10/17/17 03:41 Magnesium 1.9 mg/dL (1.6-2.6) 10/16/17 03:11 Consult Discharge Plan - Plan Instructions: Atrial Fibrillation (DC), Hyponatremia (DC), Metabolic Acidosis ( GEN) Additional Instructions: Please follow up with your PCP in the next 7-10 days for a recheck. prescription called into [facility] Return to the ER as needed if your symptoms return or worsen. Take your medications as directed and maintain your fluid restriction and weigh yourself daily Return to your normal activities and try to get up and move around throughout the day. Referrals: Franny Stubbs CNP [Primary Care Provider] - (Please follow up in 7-10 days with PCP) Prescriptions: Sodium Chloride 1 gm PO DAILY #2 tablet
[2017-10-17 19:26] LABS: Sodium, Urine 33.7 mEq/L
[2017-10-17] MEDS: Insulin DETEMIR 100 UNIT/ML X5UNITS SQ SCH (21:47)
[2017-10-18 06:01] LABS: Basophils % 0.6 %; Eosinophils # 0.1 K/mcL (0.0-0.6); Eosinophils % 1.9 %; Hematocrit 31.1 % (37.5-50.1); Hemoglobin 10.3 g/dL (12.9-16.9); Immature Granulocytes % 0.3 % (0-4); Lymphocytes # 0.6 K/mcL (0.6-4.6); Mean Corpuscular HGB Conc 33.1 g/dL (31.6-35.5); Mean Corpuscular Hemoglobin 30.7 pg (28.0-33.3); Mean Corpuscular Volume 92.8 fL (83.0-100.0); Mean Platelet Volume 9.4 fL (9.4-12.4); Monocytes # 0.3 K/mcL (0.0-1.3); Monocytes % 9.3 %; Neutrophils # 2.3 K/mcL (1.6-8.9); Platelet Count 281 K/mcL (140-400); Red Blood Count 3.35 M/mcL (4.19-5.50); Segmented Neutrophils % 70.9 %
[2017-10-18 06:07] LABS: BUN/Creatinine Ratio 14 (6-26); Blood Urea Nitrogen 17 mg/dL (8-23); Calcium 8.6 mg/dL (8.6-10.3); Carbon Dioxide 27 mEq/L (23-29); Chloride 97 mEq/L (98-107); Glucose 49 mg/dL (70-105); Osmolality,Calculated 273 (280-300); Potassium 3.7 mEq/L (3.5-5.1); Sodium 132 mEq/L (136-145); eGFR For African Americans > 60 (> 60); eGFR For Non-African Americans 58 (> 60)
--- NOTE | 2017-10-18 08:10 | Event Note ---
Date of Encounter: 10/18/17 Time of Encounter: 08:09 [facility] has improved with the hyponatremia now back to his baseline of chronic mild hyponatremia. I reviewed the sign-out info from Dr. Moore. Will sign-off at this point. Thank you for having consulted the [facility] group.
[2017-10-18] MEDS: Insulin LISPRO 300 UNITS/3 ML VIAL SQ SCH ×4 (09:16→21:12)
[2017-10-18] MEDS: Gabapentin 300 MG CAPSULE PO SCH ×2 (09:20→21:11)
[2017-10-18] MEDS: Aspirin 81 MG TAB.CHEW PO SCH (09:20)
[2017-10-18] MEDS: Bumetanide 1 MG TABLET PO SCH ×2 (09:20→17:52)
[2017-10-18] MEDS: Ascorbic Acid 500 MG TABLET PO SCH (09:20)
[2017-10-18] MEDS: ALPRAZolam 0.5 MG TABLET PO SCH ×2 (09:21→21:11)
[2017-10-18] MEDS: Loratadine 10 MG TABLET PO SCH (09:21)
[2017-10-18] MEDS: Apixaban 5 MG TABLET PO SCH ×2 (09:21→21:12)
[2017-10-18] MEDS: Multivit/Ca/Min/Fe/FA 1 TAB TABLET PO SCH (09:21)
[2017-10-18] MEDS: Artificial Tears SOLN 15 ML BOTTLE BOTH EYES SCH ×4 (09:28→21:12)
[2017-10-18] MEDS: (Omega-3/Dha/Epa/Fish Oil [Fish Oil 1,000 Mg Softgel]) PO SCH (09:28)
--- NOTE | 2017-10-18 10:00 | Internal Med Progress Note ---
Date of Encounter: 10/18/17 Time of Encounter: 09:15 - Assessment and plan (1) Hyponatremia Current Visit: Yes Status: Acute Assessment and plan: Patient with chronic hyponatremia. Sodium Has improved to 132 with fluid restriction. Renal function is within normal limits, hyponatremia has improved, nephrology has signed off. Continue fluid restriction. (2) FRANCES (acute kidney injury) Current Visit: Yes Status: Resolved Assessment and plan: Resolved. (3) Elevated troponin Current Visit: Yes Status: Acute Assessment and plan: Flat and a.dynamic the setting of CHF and COPD. Continue telemetry (4) Generalized weakness Current Visit: Yes Status: Acute Assessment and plan: Physical therapy recommends a wheeled walker, social work has the prescription. Recommend outpatient physical therapy after discharge. (5) Hypotension Current Visit: Yes Status: Resolved Assessment and plan: Resolved. Patient has been normotensive and well controlled. Qualifiers: Hypotension type: unspecified hypotension type Qualified Code(s): I95.9 - Hypotension, unspecified (6) Anemia Current Visit: Yes Status: Chronic Assessment and plan: Improving. Hemoglobin 10.3 today. Continue ferrous sulfate 325 mg by mouth twice a day Qualifiers: Anemia type: iron deficiency Qualified Code(s): D50.9 - Iron deficiency anemia, unspecified (7) Chronic kidney disease Current Visit: Yes Status: Chronic Assessment and plan: Serum creatinine 1.24, GFR 58. Avoid nephrotoxins Nephrology has signed off. Qualifiers: Chronic kidney disease stage: stage 3 (moderate) Qualified Code(s): N18.3 - Chronic kidney disease, stage 3 (moderate) (8) Obesity (BMI 30-39.9) Current Visit: Yes Status: Chronic Assessment and plan: Chronic. Encouraged lifestyle modification. (9) Type 2 diabetes mellitus Current Visit: Yes Status: Chronic Assessment and plan: Continue sliding scale insulin, diabetic/fluid restriction/low-sodium diet, continue Accu-Cheks before meals and at bedtime. Qualifiers: Diabetes mellitus termite exterminator insulin use: without termite exterminator use Diabetes mellitus complication status: with unspecified complications Qualified Code(s) : E11.8 - Type 2 diabetes mellitus with unspecified complications (10) CHF (congestive heart failure) Current Visit: Yes Status: Acute Assessment and plan: Bilateral lower extremity edema has improved, now +1 nonpitting bilaterally. Lungs are clear and diminished. Patient has diuresed approximately 750 ml. I do not believe that weights are accurate. Continue fluid restriction, low sodium diet, Bumex. Qualifiers: Heart failure type: systolic Heart failure chronicity: acute on chronic Qualified Code(s): I50.23 - Acute on chronic systolic (congestive) heart failure - Time Spent With Patient less than 15 minutes - Subjective Interval history: Patient was seen and assessed at 0915 AM. Patient denies any headache or abdominal pain and states that he is eating well. Patient feeling better and asking when he can go home. He denies chest pain, remains alert and oriented 3 , conversation appropriate. - Constitutional Vitals: Temp Pulse Resp BP Pulse Ox 98.7 F 64 16 123/57 98 10/18/17 07:32 10/18/17 07:32 10/18/17 07:32 10/18/17 07:32 10/18/17 07:32 General appearance: Present: cooperative, A&O X 3, pleasant, no acute distress, obese, answers questions appropriately - Head Head exam: Present: atraumatic, normal inspection, normocephalic - Eye Eye exam: Present: normal appearance, conjuntiva pink, sclera anicteric - Neck Neck exam general surgery: Present: supple, trachea midline. Absent: lymphadenopathy, tenderness - Respiratory Respiratory exam: Present: CTAB. Absent: accessory muscle use, chest wall tenderness, rales, respiratory distress, rhonchi, wheezes - Cardiovascular Cardiovascular exam: Present: RRR, +S1, +S2. Absent: diastolic murmur, gallop, rubs, systolic murmur - GI/Abdominal GI/Abdominal exam: Present: normal bowel sounds, soft. Absent: distended, hepatomegaly, tenderness - Extremities Exam Extremities exam: Present: normal capillary refill, normal inspection, pedal edema, warm, radial pulses palpable and symmetrical. Absent: calf tenderness, cyanotic, tenderness Additional comments: +1 nonpitting edema to bilateral lower extremities. - Neurological Exam Neurological exam: Present: alert, oriented X3, no focal deficits. Absent: facial droop, speech deficit - Skin Skin exam: Present: dry, intact, normal color, warm. Absent: rash Internal Medicine: Result - Labs CBC & Chem 7: 10/18/17 05:07 10/18/17 05:07 Labs: Short CBC 10/18/17 Range/Units 05:07 WBC 3.2 L (4.3-11.1) K/mcL Hgb 10.3 L (12.9-16.9) g/dL Hct 31.1 L (37.5-50.1) % Plt Count 281 (140-400) K/mcL Neutrophils # 2.3 (1.6-8.9) K/mcL BMP 10/18/17 05:07 Sodium 132 L Potassium 3.7 Chloride 97 L Carbon Dioxide 27 BUN 17 Creatinine 1.24 Glucose 49 L Calcium 8.6 - ABG Interpretation ABG results: PT/INR, D-dimer PT 20.4 Seconds (9.4-12.1) H 10/15/17 14:46 Consult Discharge Plan - Plan Referrals: Franny Stubbs, [employer] [Primary Care Provider] -
[2017-10-18] MEDS: Insulin DETEMIR 100 UNIT/ML X5UNITS SQ SCH (21:11)
[2017-10-19 06:23] LABS: Basophils % 0.3 %; Eosinophils # 0.1 K/mcL (0.0-0.6); Eosinophils % 1.7 %; Hematocrit 29.8 % (37.5-50.1); Hemoglobin 9.9 g/dL (12.9-16.9); Immature Granulocytes % 0.6 % (0-4); Lymphocytes # 0.6 K/mcL (0.6-4.6); Lymphocytes % 16.5 %; Mean Corpuscular HGB Conc 33.2 g/dL (31.6-35.5); Mean Corpuscular Volume 93.4 fL (83.0-100.0); Mean Platelet Volume 9.3 fL (9.4-12.4); Monocytes # 0.3 K/mcL (0.0-1.3); Monocytes % 9.4 %; Neutrophils # 2.5 K/mcL (1.6-8.9); Platelet Count 290 K/mcL (140-400); Red Blood Count 3.19 M/mcL (4.19-5.50); Red Cell Distribution Width 16.8 % (11.5-14.5); Segmented Neutrophils % 71.5 %
[2017-10-19 06:43] LABS: BUN/Creatinine Ratio 14 (6-26); Blood Urea Nitrogen 17 mg/dL (8-23); Calcium 8.6 mg/dL (8.6-10.3); Carbon Dioxide 26 mEq/L (23-29); Chloride 97 mEq/L (98-107); Glucose 72 mg/dL (70-105); Osmolality,Calculated 270 (280-300); Potassium 3.8 mEq/L (3.5-5.1); Sodium 130 mEq/L (136-145); eGFR For African Americans > 60 (> 60); eGFR For Non-African Americans 59 (> 60)
[2017-10-19] MEDS: Aspirin 81 MG TAB.CHEW PO SCH (09:57)
[2017-10-19] MEDS: Bumetanide 1 MG TABLET PO SCH (09:57)
[2017-10-19] MEDS: Apixaban 5 MG TABLET PO SCH ×2 (09:58→21:19)
[2017-10-19] MEDS: ALPRAZolam 0.5 MG TABLET PO SCH ×2 (09:58→21:18)
[2017-10-19] MEDS: Gabapentin 300 MG CAPSULE PO SCH ×2 (09:58→21:18)
[2017-10-19] MEDS: Multivit/Ca/Min/Fe/FA 1 TAB TABLET PO SCH (09:59)
[2017-10-19] MEDS: Loratadine 10 MG TABLET PO SCH (09:59)
[2017-10-19] MEDS: Ascorbic Acid 500 MG TABLET PO SCH (09:59)
[2017-10-19] MEDS: Insulin LISPRO 300 UNITS/3 ML VIAL SQ SCH ×4 (10:00→21:19)
[2017-10-19] MEDS: Artificial Tears SOLN 15 ML BOTTLE BOTH EYES SCH ×4 (10:00→21:20)
[2017-10-19] MEDS: (Omega-3/Dha/Epa/Fish Oil [Fish Oil 1,000 Mg Softgel]) PO SCH (10:04)
--- NOTE | 2017-10-19 16:42 | Internal Med Progress Note ---
Date of Encounter: 10/19/17 Time of Encounter: 10:00 - Assessment and plan (1) Hyponatremia Current Visit: Yes Status: Acute Assessment and plan: Patient with hypoosmolar hyponatremia with low serum osmolality. Patient has been placed on a fluid restriction and nephrology has been consulted, signed off. Sodium had increased to 132, decreased to 128 this a.m. Bumex stopped, will monitor again in the a.m. Urine sodium ordered Continue fluid restriction and continue to monitor labs. (2) FRANCES (acute kidney injury) Current Visit: Yes Status: Resolved Assessment and plan: Acute on chronic. Patient was stage III chronic kidney disease the patient denies that he sees nephrology. Resolved. Continue monitor fluid electrolyte balance and avoid nephrotoxins. Nephrology has evaluated pt and has signed off. (3) Elevated troponin Current Visit: Yes Status: Acute Assessment and plan: Flat and adynamic troponin elevation in the setting of CHF and chronic kidney disease. Patient denies chest pain. Telemetry. (4) Generalized weakness Current Visit: Yes Status: Acute Assessment and plan: Likely multifactorial due to anemia, hyponatremia, deconditioning. PT/OT no acute needs here, PT for home. monitor for falls and safety. (5) Hypotension Current Visit: Yes Status: Resolved Assessment and plan: Resolved. Continue to monitor vital signs. Qualifiers: Hypotension type: unspecified hypotension type Qualified Code(s): I95.9 - Hypotension, unspecified (6) Anemia Current Visit: Yes Status: Chronic Assessment and plan: With chronic anemia, likely iron deficiency anemia. This appears to be around patient's baseline, continue to monitor and transfuse if hemoglobin less than 8. Patient with normal B12 and folate in August,. Iron level was within normal limits, percent saturation was mildly decreased at 13%. Ferritin was within normal limits. Continue ferrous sulfate 325 mg by mouth twice a day. Qualifiers: Anemia type: iron deficiency Qualified Code(s): D50.9 - Iron deficiency anemia, unspecified (7) Chronic kidney disease Current Visit: Yes Status: Chronic Assessment and plan: Plan as above. Qualifiers: Chronic kidney disease stage: stage 3 (moderate) Qualified Code(s): N18.3 - Chronic kidney disease, stage 3 (moderate) (8) Obesity (BMI 30-39.9) Current Visit: Yes Status: Chronic Assessment and plan: Chronic. Encourage lifestyle modifications. (9) Type 2 diabetes mellitus Current Visit: Yes Status: Chronic Assessment and plan: Hemoglobin A1c 7.1% September. Continue sliding scale insulin, Accu-Cheks before meals and at bedtime, diabetic diet. May benefit from diabetes education after discharge. Follow with PCP. Qualifiers: Diabetes mellitus fpc insulin use: without remote computer terminal operator use Diabetes mellitus complication status: with unspecified complications Qualified Code(s) : E11.8 - Type 2 diabetes mellitus with unspecified complications (10) CHF (congestive heart failure) Current Visit: Yes Status: Acute Assessment and plan: Acute exacerbation of chronic systolic CHF. Echocardiogram today showed an LVEF of 40-45% with a mildly dilated left ventricle. Grossly, no segmental LV systolic dysfunction involving the inferior segments. Lungs clear and diminished throughout, BLE edema improved, no pitting edema. Chest x-ray showed no focal consolidation, mild cardiomegaly chronic blunting at the right costophrenic angle. BNP decreased today. Approximately 2.8 liter diuresis. Continue telemetry Continue fluid restriction, strict I and O, daily weights. Diuretic stopped. Qualifiers: Heart failure type: systolic Heart failure chronicity: acute on chronic Qualified Code(s): I50.23 - Acute on chronic systolic (congestive) heart failure - Time Spent With Patient less than 15 minutes - Subjective Interval history: Patient was seen and assessed at 1000 AM. Patient denies any headache or abdominal pain and states that he is eating well, reports adherence to fluid restriction. Patient feeling better and asking when he can go home. He denies chest pain, remains alert and oriented 3, conversation appropriate. - Constitutional Vitals: Temp Pulse Resp BP Pulse Ox 97.6 F 70 16 106/55 96 10/19/17 14:44 10/19/17 14:44 10/19/17 14:44 10/19/17 14:44 10/19/17 14:44 General appearance: Present: cooperative, A&O X 3, pleasant, no acute distress, obese, answers questions appropriately - Head Head exam: Present: atraumatic, normal inspection, normocephalic - Eye Eye exam: Present: normal appearance, conjuntiva pink, sclera anicteric - Neck Neck exam general surgery: Present: supple, trachea midline. Absent: lymphadenopathy, tenderness - Respiratory Respiratory exam: Present: CTAB. Absent: accessory muscle use, decreased breath sounds, rales, respiratory distress, rhonchi, wheezes - Cardiovascular Cardiovascular exam: Present: RRR, +S1, +S2. Absent: diastolic murmur, gallop, rubs, systolic murmur - GI/Abdominal GI/Abdominal exam: Present: normal bowel sounds, soft. Absent: distended, hepatomegaly, tenderness - Extremities Exam Extremities exam: Present: normal inspection, warm, radial pulses palpable and symmetrical. Absent: calf tenderness, cyanotic, normal capillary refill, pedal edema, tenderness - Neurological Exam Neurological exam: Present: alert, oriented X3, no focal deficits. Absent: facial droop, speech deficit - Skin Skin exam: Present: dry, intact, normal color, warm. Absent: rash Internal Medicine: Result - Labs CBC & Chem 7: 10/19/17 05:42 10/19/17 09:56 Labs: Short CBC 10/19/17 Range/Units 05:42 WBC 3.5 L (4.3-11.1) K/mcL Hgb 9.9 L (12.9-16.9) g/dL Hct 29.8 L (37.5-50.1) % Plt Count 290 (140-400) K/mcL Neutrophils # 2.5 (1.6-8.9) K/mcL BMP 10/19/17 10/19/17 05:42 09:56 Sodium 130 L 128 L Potassium 3.8 Chloride 97 L Carbon Dioxide 26 BUN 17 Creatinine 1.22 Glucose 72 Calcium 8.6 - ABG Interpretation ABG results: PT/INR, D-dimer PT 20.4 Seconds (9.4-12.1) H 10/15/17 14:46 Consult Discharge Plan - Plan Referrals: Franny Stubbs, [employer] [Primary Care Provider] -
[2017-10-19] MEDS: Insulin DETEMIR 100 UNIT/ML X5UNITS SQ SCH (21:19)
[2017-10-20 06:53] VITALS: BP 126/50
[2017-10-20 07:18] LABS: BUN/Creatinine Ratio 15 (6-26); Blood Urea Nitrogen 16 mg/dL (8-23); Calcium 8.8 mg/dL (8.6-10.3); Carbon Dioxide 26 mEq/L (23-29); Chloride 97 mEq/L (98-107); Glucose 63 mg/dL (70-105); Osmolality,Calculated 269 (280-300); Potassium 3.9 mEq/L (3.5-5.1); Sodium 130 mEq/L (136-145); eGFR For African Americans > 60 (> 60); eGFR For Non-African Americans > 60 (> 60)
[2017-10-20] MEDS: Insulin LISPRO 300 UNITS/3 ML VIAL SQ SCH ×2 (07:25→11:53)
[2017-10-20] MEDS: (Omega-3/Dha/Epa/Fish Oil [Fish Oil 1,000 Mg Softgel]) PO SCH (07:26)
[2017-10-20 07:40] LABS: Basophils % 0.6 %; Eosinophils # 0.1 K/mcL (0.0-0.6); Eosinophils % 1.9 %; Hematocrit 30.1 % (37.5-50.1); Hemoglobin 9.9 g/dL (12.9-16.9); Immature Granulocytes % 0.6 % (0-4); Lymphocytes # 0.7 K/mcL (0.6-4.6); Lymphocytes % 22.4 %; Mean Corpuscular HGB Conc 32.9 g/dL (31.6-35.5); Mean Corpuscular Hemoglobin 30.7 pg (28.0-33.3); Mean Corpuscular Volume 93.5 fL (83.0-100.0); Mean Platelet Volume 9.4 fL (9.4-12.4); Monocytes # 0.3 K/mcL (0.0-1.3); Monocytes % 9.3 %; Nucleated Red Blood Cells 0.6 /100 WBC (0); Platelet Count 305 K/mcL (140-400); Red Blood Count 3.22 M/mcL (4.19-5.50); Red Cell Distribution Width 16.7 % (11.5-14.5); Segmented Neutrophils % 65.2 %
[2017-10-20] MEDS: Artificial Tears SOLN 15 ML BOTTLE BOTH EYES SCH ×2 (08:28→12:03)
[2017-10-20] MEDS: Multivit/Ca/Min/Fe/FA 1 TAB TABLET PO SCH (08:29)
[2017-10-20] MEDS: ALPRAZolam 0.5 MG TABLET PO SCH (08:29)
[2017-10-20] MEDS: Ascorbic Acid 500 MG TABLET PO SCH (08:29)
[2017-10-20] MEDS: Gabapentin 300 MG CAPSULE PO SCH (08:29)
[2017-10-20] MEDS: Aspirin 81 MG TAB.CHEW PO SCH (08:29)
[2017-10-20] MEDS: Apixaban 5 MG TABLET PO SCH (08:29)
[2017-10-20] MEDS: Loratadine 10 MG TABLET PO SCH (08:30)
--- NOTE | 2017-10-20 09:54 | Discharge Summary ---
- NOTES TO OUTPATIENT PROVIDER Notes to Outpatient Provider: Pt admitted for CHF with hypoosmolar hyponatremia , resolved with fluid restriction. Pt diuresed 2.3 liters and we discussed the importance of continued fluid restriction at home. Na+ not back to baseline, but is trending up at discharge. Patient will also need to order for outpatient physical therapy, identified need by physical therapy department. Date of Encounter: 10/20/17 Time of Encounter: 08:30 - Discharge Diagnosis (1) CHF (congestive heart failure) Priority: Primary Status: Chronic Comments: Acute on chronic systolic CHF. Echocardiogram with LVEF of 40-45%, mildly dilated LV. Grossly no segmental LV systolic dysfunction. His lungs are clear and diminished throughout, be the edema has resolved. Chest x-ray showed no focal consolidation, mild cardiomegaly with chronic blunting of the right chet to phrenic angle. BLE has decreased. Patient has approximately 2.8 L diuresis of overall. I have encouraged patient to continue fluid restriction and daily weights at home. Patient verbalized understanding. Qualifiers: Heart failure type: systolic Heart failure chronicity: acute on chronic Qualified Code(s): I50.23 - Acute on chronic systolic (congestive) heart failure (2) Hyponatremia Priority: Secondary Status: Acute Comments: Hypoosmolar hyponatremia with low serum osmolality. Resolved with fluid restriction. Nephrology was consulted and signed off. Sodium has fluctuated throughout visit, 130 today. Continue fluid restriction at home. Discussed hyponatremia with Dr. Dunlap, recommended 1 g sodium tablets daily 3 days. Prescription pharmacy. First dose today. (3) FRANCES (acute kidney injury) Priority: Secondary Status: Resolved (4) Elevated troponin Priority: Secondary Status: Acute Comments: Flat and adynamic troponin elevation in the setting of CHF, CKC. No chest pain. Demand ischemia. (5) Generalized weakness Priority: Secondary Status: Acute Comments: A multifactorial due to anemia, hyponatremia, overall physical deconditioning. PT/OT did not recommend acute needs here, we will recommend PT for home. Primary care provider will need to order. (6) Hypotension Priority: Secondary Status: Resolved Comments: Resolved. Qualifiers: Hypotension type: unspecified hypotension type Qualified Code(s): I95.9 - Hypotension, unspecified (7) Anemia Priority: Secondary Status: Chronic Comments: Chronic anemia, iron deficiency anemia, as well as anemia of chronic disease, CKD. Hemoglobin appears to be around his baseline, he did not require any transfusions. Normal B12 and folate in August,. Iron levels within normal limits, percent saturation mildly decreased at 13%. Ferritin within normal limits. Continue ferrous sulfate 325 mg twice daily. Qualifiers: Anemia type: iron deficiency Qualified Code(s): D50.9 - Iron deficiency anemia, unspecified (8) Chronic kidney disease Priority: Secondary Status: Chronic Comments: Avoid nephrotoxins. 1.10/>60 Qualifiers: Chronic kidney disease stage: stage 3 (moderate) Qualified Code(s): N18.3 - Chronic kidney disease, stage 3 (moderate) (9) Obesity (BMI 30-39.9) Priority: Secondary Status: Chronic Comments: Chronic. Continue to encourage lifestyle modifications. (10) Type 2 diabetes mellitus Priority: Secondary Status: Chronic Comments: Hemoglobin A1c 7.1% in September,. Continue home medications. Qualifiers: Diabetes mellitus senior living insulin use: without rodent exterminator use Diabetes mellitus complication status: with unspecified complications Qualified Code(s) : E11.8 - Type 2 diabetes mellitus with unspecified complications (11) DVT prophylaxis Priority: Secondary Status: Acute Comments: Pt on Eliquis. Hospital course: Mr. Romero is a 72 year old male with past medical history of chronic kidney disease, A. fib, chronic anemia, CABG, TIA, CVA, peripheral artery disease, obesity, chronic pancytopenia. Patient presented to the emergency department from primary care provider office with weakness, dizziness, overall malaise for approximately 2 weeks. Patient was hypotensive in the office he was found to be anemic, hyponatremic, with an elevated BNP and troponin. Patient has a stable abdominal aneurysm 5.3 cm. Nephrology was consult for hyponatremia, fluid restriction was instituted and sodium decreased. 130 today on discharge. Pedal edema and lower extremity edema has resolved, patient states that he feels significantly better. BNP has decreased, troponin was due to demand ischemia in the setting of AECHF and chronic kidney disease. His exam is unremarkable today. Patient admits to noncompliance with fluid restriction and was at home eating and drinking whatever he wanted. We discussed continuing 1.5 L fluid restriction as well as monitoring daily weights. Patient's hemoglobin is 9.9 today, this appears to be at his baseline and his stable, continue ferrous sulfate. Renal function is within normal limits and creatinine 1.10, GFR greater than 60. Continue to avoid nephrotoxins. Patient will need close follow-up with primary care. He stable and appropriate for discharge. Discharge discussed with: patient - Time Spent with Patient Total time spent providing and/or coordinating discharge services: Less than 30 minutes - Discharge Medications Prescriptions: Sodium Chloride 1 gm PO DAILY #2 tablet Home Medications: ALPRAZolam [Xanax 0.5 MG Tablet] 0.5 mg PO BID #0 09/18/15 [History] Ascorbate Calcium [Vitamin C] 1,000 mg PO DAILY #0 09/18/15 [History] Aspirin 81 mg PO DAILY #0 09/18/15 [History] Docusate [Colace] 200 mg PO DAILY #0 09/18/15 [History] Doxepin HCl 50 mg PO BID #0 09/18/15 [History] Furosemide [Lasix] 40 mg PO BID #0 09/18/15 [History] Gabapentin [Neurontin] 300 mg PO BID #0 09/18/15 [History] Multivit-Min/FA/Lycopen/Lutein [Adults 50+ Multivitamin Tablet] 1 tab PO DAILY # 0 09/18/15 [History] Potassium Chloride [K-Tab ER] 10 meq PO DAILY #0 09/18/15 [History] Rosuvastatin [Crestor] 20 mg PO HS #0 09/18/15 [History] Zolpidem [Ambien] 10 mg PO HS #0 09/18/15 [History] Acetaminophen [Tylenol] 500 mg PO BID 01/23/16 [History] Capsaicin [Arthritis Pain Relief] 1 appl TP TID PRN 01/23/16 [History] Carboxymethylcellulose Sodium [Refresh Tears] 1 drop BOTH EYES QID 01/23/16 [ History] Nitroglycerin [Nitrostat] 0.4 mg SL Q5M PRN 01/23/16 [History] Pantoprazole Sodium [Protonix] 40 mg PO DAILY 01/23/16 [History] Apixaban [Eliquis] 2.5 mg PO BID #90 tablet 01/26/16 [Rx] Insulin Glargine,Hum.rec.anlog [Lantus Solostar] 55 unit SQ HS 02/15/17 [History ] Fluticasone Propionate Nasal [Flonase] 2 spray NS DAILY PRN 04/11/17 [History] Isosorbide MONOnitrate [Isosorbide Mononitrate ER] 120 mg PO DAILY 04/11/17 [ History] Loratadine [Allergy Relief] 10 mg PO DAILY 04/11/17 [History] Metoprolol Succinate 250 mg PO DAILY 04/11/17 [History] [place]-3/Dha/Epa/Fish Oil [Fish Oil 1,000 mg Softgel] 1,000 mg PO DAILY 04/11/17 [History] Ferrous Sulfate [Iron] 325 mg PO BID 10/15/17 [History] Levothyroxine [Synthroid] 125 mcg PO 0630 10/15/17 [History] Lisinopril 2.5 mg PO DAILY 10/15/17 [History] glipiZIDE [Glipizide] 20 mg PO BID 10/15/17 [History] Sodium Chloride 1 gm PO DAILY #2 tablet 10/20/17 [Rx] Allergies/Adverse Reactions: 3 Allergy/AdvReac Type Severity Reaction Status Date / Time tamsulosin Allergy Rash Verified 08/15/17 10:33 Penicillins AdvReac Mild Anaphylaxis Verified 08/15/17 10:33 Date of admission: 10/16/17 02:13 Primary care physician: Franny Stubbs CNP Consults: 10/16/17 02:18 Consult to Physical Therapy [CONS] Routine Comment: Evaluate, develop and implement POC Reason for Consult: evaluate and treat Does patient have active BEDREST order?: No Is patient medically & hemodynamically stable?: Yes Patient assessed for mobility or mobilized this visit?: Yes 10/16/17 08:01 Consult to Nephrology [CONS] Routine Consulting Provider: Kidney Anastasiia/MAXIME/NOLBERTO/MAGGY Reason for Consult: Hypoosmolar hyponatremia, CKD Call Completed: No Discharging clinician: Olga Morrissey Anticipated date of discharge: 10/20/17 - Constitutional Vitals: Temp Pulse Resp BP Pulse Ox 98.8 F 67 14 126/50 97 10/20/17 06:48 10/20/17 06:48 10/20/17 06:48 10/20/17 06:48 10/20/17 06:48 General appearance: Present: cooperative, A&O X 3, pleasant, no acute distress, obese, answers questions appropriately - Head Head exam: Present: atraumatic, normal inspection, normocephalic - Eye Eye exam: Present: normal appearance, conjuntiva pink, sclera anicteric - Neck Neck exam general surgery: Present: normal inspection, supple, trachea midline. Absent: lymphadenopathy, tenderness - Respiratory Respiratory exam: Present: CTAB. Absent: accessory muscle use, chest wall tenderness, rales, respiratory distress, rhonchi, wheezes - Cardiovascular Cardiovascular exam: Present: RRR, +S1, +S2. Absent: diastolic murmur, gallop, rubs, systolic murmur - GI/Abdominal GI/Abdominal exam: Present: distended, normal bowel sounds, soft. Absent: hepatomegaly, tenderness - Extremities Exam Extremities exam: Present: normal capillary refill, normal inspection, warm, radial pulses palpable and symmetrical. Absent: calf tenderness, cyanotic, pedal edema, tenderness - Neurological Exam Neurological exam: Present: alert, oriented X3, no focal deficits. Absent: facial droop, speech deficit - Skin Skin exam: Present: dry, intact, normal color, warm. Absent: rash - Patient Status Disposition: Home, Self-Care Condition: Good Functional capacity at discharge: independent ambulation Overall status at discharge: patient is progressing back to baseline - Discharge Instructions Follow Up With: Franny Stubbs [employer] [Primary Care Provider] - Additional Instructions: Please follow up with your PCP in the next 7-10 days for a recheck. prescription called into [facility] Return to the ER as needed if your symptoms return or worsen. Take your medications as directed and maintain your fluid restriction and weigh yourself daily Return to your normal activities and try to get up and move around throughout the day. - Diet and Activity Activity: increase activity as tolerated Diet: low salt diet, other (Fluid restriction diet 1.5 L daily.)
== END 2017-10-20 13:22 | disposition home or self-care (01) | DRG 640 ==
LOC: 3BNU 13:35 → EMEROO 13:35 → 3BNU 22:42
PROVIDERS: ADMIT Internal Medicine Cardiovascular Disease; ATTEND Registered Nurse

== ENCOUNTER 2018-10-11 15:14 | Inpatient (IN) ==
--- NOTE | 2018-10-11 15:40 | Emergency Department Note ---
Disposition Clinical Impression: Hyperammonemia, Confusion Headache Qualifiers: Headache type: unspecified Headache chronicity pattern: acute headache Intr actability: intractable Qualified Code(s): R51 - Headache Disposition: Admitted As Inpatient Condition: Good Referrals: NONE,PCP [Non-Partnered Physician] - Forms: ED Satisfaction Letter Time of Disposition: 18:23 Headache HPI - General Chief Complaint: ED Headache Stated Complaint: HENRIQUEZ "confusion" Time Seen by Provider: 10/11/18 15:33 Source: patient Mode of arrival: ambulatory Limitations: no limitations Nursing Notes Reviewed: Yes Vital Signs Reviewed: Yes - History of Present Illness HPI Narrative: Patient is a 73-year-old male with past medical history of hypertension, hyperlipidemia, A. fib, cirrhosis, hyperammonemia. Presents today due to concern for headache, confusion. Patient states that she began having a headache on , approximately 4 days ago. It was gradual in onset. It is intermittent, described as sharp shooting pain in the left congregational that comes and goes, lasts for a few seconds at a time. They occur throughout the entire day, multiple times a day. He has been taking Excedrin Migraine at home and states that it is not helping. He does admit to occasional blurred vision but denies any black vision. Denies any other numbness, tingling, weakness, neck stiffness, fevers, nausea, vomiting, abdominal pain, chest pain, shortness of breath, any previous history of any migraines or headaches. Denies any falls or injuries. Denies any neck pain. Denies that this was sudden in onset over the worse headache of his life. Pain Scale: 7 - Related Data Home Medications Medication Instructions Recorded Confirmed ALPRAZolam [Xanax 0.5 MG Tablet] 1 mg PO HS #0 09/18/15 10/09/18 Ascorbate Calcium [Vitamin C] 1,000 mg PO DAILY #0 09/18/15 10/09/18 Aspirin 81 mg PO DAILY #0 09/18/15 10/09/18 Docusate [Colace] 100 mg PO DAILY #0 09/18/15 10/09/18 Doxepin HCl 100 mg PO HS #0 09/18/15 10/09/18 Furosemide [Lasix] 40 mg PO TID #0 09/18/15 10/09/18 Multivit-Min/FA/Lycopen/Lutein 1 tab PO DAILY #0 09/18/15 10/09/18 [Adults 50+ Multivitamin Tablet] Potassium Chloride [K-Tab ER] 10 meq PO DAILY #0 09/18/15 10/09/18 Acetaminophen [Tylenol] 500 mg PO BID PRN 01/23/16 10/09/18 Nitroglycerin [Nitrostat] 0.4 mg SL Q5M PRN 01/23/16 10/09/18 Insulin Glargine,Hum.rec.anlog 66 unit SQ QAM 02/15/17 10/09/18 [Lantus Solostar] Isosorbide MONOnitrate [Isosorbide 120 mg PO DAILY 04/11/17 10/09/18 Mononitrate ER] Loratadine [Allergy Relief] 10 mg PO BID 04/11/17 10/09/18 Mora-3/Dha/Epa/Fish Oil [Fish Oil 1,000 mg PO DAILY 04/11/17 10/09/18 1,000 mg Softgel] Ferrous Sulfate [Iron] 325 mg PO BID 10/15/17 10/09/18 glipiZIDE [Glipizide] 10 mg PO BID 10/15/17 10/09/18 Carboxymethylcellulos/Glycerin 1 drop BOTH EYES QID 06/27/18 10/09/18 [Refresh Optive Gel Eye Drops] Dextrose [Glucose] 16 gm PO AD 06/27/18 10/09/18 Insulin Glargine,Hum.rec.anlog 28 unit SQ QPM 06/27/18 10/09/18 [Lantus Solostar] Levothyroxine Sodium 150 mcg PO QAM 06/27/18 10/09/18 Rosuvastatin Calcium [Crestor] 20 mg PO DAILY 06/27/18 10/09/18 Zolpidem [Ambien] 5 mg PO HS 06/27/18 10/09/18 Baclofen [Lioresal] 10 mg PO TID PRN 09/23/18 10/09/18 Metoprolol Succinate [Toprol Xl] 50 mg PO DAILY 09/23/18 10/09/18 Pantoprazole Sodium 40 mg PO BID 09/23/18 10/09/18 Previous Rx's Medication Instructions Recorded Apixaban [Eliquis] 2.5 mg PO BID #90 tablet 01/26/16 Lactulose 10 gm PO BID PRN #300 mls 09/23/18 Allergies Allergy/AdvReac Type Severity Reaction Status Date / Time tamsulosin Allergy Rash Verified 08/14/18 14:24 Penicillins AdvReac Mild Anaphylaxis Verified 08/14/18 14:24 All systems ED: reviewed and negative except as stated. Constitutional: Denies: fever Cardiovascular: Denies: chest pain Respiratory: Denies: cough, dyspnea Gastrointestinal: Denies: abdominal pain, nausea, vomiting, diarrhea Genitourinary: Denies: urgency, dysuria Musculoskeletal: Denies: back pain, neck pain Integumentary: Denies: rash Neurological: Reports: headache. Denies: weakness, numbness, paresthesias Headache PMH - Past Medical History Medical history: Reports: aortic aneurysm, arthritis, atrial fibrillation, cardiomyopathy, CHF, coronary artery disease, DVT, diabetes, GERD, hyperlipidemia, hypertension, myocardial infarction, peripheral artery disease, thyroid disease, other Male Surgical History: Reports: angioplasty/stent, appendectomy, cholecystectomy, coronary bypass (CABG), LE Bypass, LE stent(s), LE vascular intervention, other Psychiatric history: Reports: anxiety, depression - Social History Smoking Status: Never smoker Alcohol use: Reports: none Drug use: Reports: none Physical Exam - General Limitations: other (Mild confusion, has difficulty finding words, repeat himself a lot) General appearance: alert, in no apparent distress - Head Head exam: atraumatic, normocephalic, normal inspection, other (No rashes of the scalp, no tenderness of the scalp, specifically no tenderness or lesions of the left temporal region where patient has subjective pain.) - Eye Eye exam: Present: normal appearance, PERRL, EOMI - ENT ENT exam: normal exam, normal oropharynx, mucous membranes moist - Neck Neck exam: Present: normal inspection, full ROM, trachea midline. Absent: tenderness, meningismus, lymphadenopathy - Chest Chest inspection: Present: normal inspection, symmetric chest wall rise - Respiratory Respiratory exam: Present: normal lung sounds bilaterally - Cardiovascular Cardiovascular exam: Present: regular rate, normal rhythm, normal heart sounds - Abdominal Exam Abdominal exam: Present: soft, Non-Tender. Absent: tenderness, distention, guarding, rebound, rigidity - Extremities Exam Extremities exam: Present: normal inspection, full ROM. Absent: tenderness, pedal edema - Neurological Exam Neurological exam: Present: alert, oriented X3, CN II-XII intact, other (Appears to be mildly confused, repeats himself multiple times, has difficult to finding words.). Absent: motor sensory deficit - Expanded Neurological Exam Patient oriented to: Present: person, place, time Speech: Present: fluid speech Cranial nerves: EOM function (II, III, IV, ): Normal, facial sensation (V): Normal, gag reflex (IX): Normal, spinal accessory function (XI): Normal, tongue deviation (XII): Normal Motor strength - LUE: 5/5 Motor strength - RUE: 5/5 Motor strength - LLE: 5/5 Motor strength - RLE: 5/5 Sensory exam upper extremity: light touch: Normal Sensory exam lower extremity: light touch: Normal Coma Scale Eye Opening: Spontaneous Coma Scale Motor Response: Obeys Commands Coma Scale Verbal Response: Confused Coma Scale Total: 14 - Psychiatric Psychiatric exam: Present: normal affect, normal mood - Skin Skin exam: Present: warm, dry, intact, normal color. Absent: rash Course Course Narrative: Patient mildly hypertensive. Otherwise, the rest of vitals within normal limits. Physical exam shows a patient is mildly confused, has trouble finding words, repeats himself multiple times throughout the exam. Physical exam otherwise shows no focal neurologic deficits, no neck stiffness, no meningeal signs, heart lung and abdomen within normal limits. Scalp exam shows no lesions or rashes, no tenderness to palpation of the left temporal region. No concern currently for anything like temporal arteritis. However, this does sound like sharp shooting pain that would be associated with something like trigeminal neuralgia. I think his overall baseline confusion could be attributed to high ammonia levels. Patient is currently on lactulose 3 times a day but states that he is confused about his baseline. We will perform basic labs, LFTs, ammonia level, we will go ahead and scan his head. He does have a history of stroke and is on blood thinners. We will also obtain chest x-ray and urinalysis. Patient will likely need to be admitted for further care. 18:00 chest x-ray negative for any acute abnormality. Head CT shows no acute intracranial abnormality. Labs show elevated troponin level that is chronically elevated in the past. Ammonia level is high. We will give it dose of lactulose here. Patient was reevaluated. Upon repeat inspection, patient does have a mildly erythematous rash on the left forehead and left temporal region now. However, there are no vesicles and is nontender to touch. Uncertain if t his is early shingles in nature, may also be trigeminal neuralgia type picture. With confusion, hyperammonemia, continued headache, we will admit the patient for further care. Patient did not have resolution of his headache with Toradol and Reglan, will add small dose of fentanyl to see if this will help. Chest X-Ray 10/11/18 15:49 IMPRESSION: No acute abnormality. D/ / 10/11/2018 16:55:51 Fran Ruggiero MD / miladis Interpreting Provider: Fran Ruggiero MD Head CT 10/11/18 15:49 IMPRESSION: No acute intracranial abnormality. Diffuse atrophic changes with findings suggesting chronic microvascular ischemia D/ / Jeffrey Garcia MD / Jeffrey Garcia MD Interpreting Provider: Jeffrey Garcia MD Vital Signs Temperature 97.4 F L 10/11/18 15:18 Pulse Rate 92 10/11/18 15:18 Respiratory Rate 18 10/11/18 15:18 Blood Pressure 157/80 10/11/18 15:18 O2 Sat by Pulse Oximetry 98 10/11/18 15:18 Temperature 97.4 F L 10/11/18 15:18 Pulse Rate 80 10/11/18 16:27 Respiratory Rate 18 10/11/18 16:27 Blood Pressure 157/102 10/11/18 16:27 O2 Sat by Pulse Oximetry 93 10/11/18 16:27 Oxygen Delivery Oxygen Delivery Room Air Headache - MDM Narrative Medical decision making narrative: Patient mildly hypertensive. Otherwise, the rest of vitals within normal limits. Physical exam shows a patient is mildly confused, has trouble finding words, repeats himself multiple times throughout the exam. Physical exam otherwise shows no focal neurologic deficits, no neck stiffness, no meningeal signs, heart lung and abdomen within normal limits. Scalp exam shows no lesions or rashes, no tenderness to palpation of the left temporal region. No concern currently for anything like temporal arteritis. However, this does sound like sharp shooting pain that would be associated with something like trigeminal neuralgia. I think his overall baseline confusion could be attributed to high ammonia levels. Patient is currently on lactulose 3 times a day but states that he is confused about his baseline. We will perform basic labs, LFTs, ammonia level, we will go ahead and scan his head. He does have a history of stroke and is on blood thinners. We will also obtain chest x-ray and urinaly sis. Patient will likely need to be admitted for further care. 18:00 chest x-ray negative for any acute abnormality. Head CT shows no acute intracranial abnormality. Labs show elevated troponin level that is chronically elevated in the past. Ammonia level is high. We will give it dose of lac tulose here. Patient was reevaluated. Upon repeat inspection, patient does have a mildly erythematous rash on the left forehead and left temporal region now. However, there are no vesicles and is nontender to touch. Uncertain if this is early shingles in nature, may also be trigeminal neuralgia type picture. With confusion, hyperammonemia, continued headache, we will admit the patient for further care. Patient did not have resolution of his headache with Toradol and Reglan, will add small dose of fentanyl to see if this will help. - Medical Records Medical records reviewed: Yes I reviewed the patient's medical records. - Lab Data Lab results reviewed: Yes I reviewed the patient's lab results. Result diagrams: 10/11/18 16:14 10/11/18 16:14 Lab Results 10/11/18 10/11/18 10/11/18 Range/Units 16:14 16:14 16:14 WBC 6.6 (4.3-11.1) K/mcL RBC 4.45 (4.19-5.50) M/mcL Hgb 14.5 (12.9-16.9) g/dL Hct 43.5 (37.5-50.1) % MCV 97.8 (83.0-100.0) fL MCH 32.6 (28.0-33.3) pg MCHC 33.3 (31.6-35.5) g/dL RDW 15.0 H (11.5-14.5) % Plt Count 171 (140-400) K/mcL MPV 10.8 (9.4-12.4) fL Immature Gran % 0.3 (0-4) % Seg Neutrophils % 67.4 % Lymphocytes % 19.5 % Monocytes % 10.7 % Eosinophils % 1.2 % Basophils % 0.9 % Neutrophils # 4.5 (1.6-8.9) K/mcL Lymphocytes # 1.3 (0.6-4.6) K/mcL Monocytes # 0.7 (0.0-1.3) K/mcL Eosinophils # 0.1 (0.0-0.6) K/mcL Basophils # 0.1 (0.0-0.2) K/mcL PT 17.0 H (9.4-12.1) Seconds INR 1.5 APTT 35.5 (26.0-36.0) Seconds Sodium (136-145) mEq/L Potassium (3.5-5.1) mEq/L Chloride (98-107) mEq/L Carbon Dioxide (23-29) mEq/L BUN (8-23) mg/dL Creatinine (0.70-1.30) mg/dL Est GFR ( Amer) (> 60) Est GFR (Non-Af Amer) (> 60) BUN/Creatinine Ratio (6-26) Glucose (70-105) mg/dL Calculated Osmolality (280-300) Calcium (8.6-10.3) mg/dL Total Bilirubin (0.3-1.0) mg/dL Direct Bilirubin (0.0-0.2) mg/dL Indirect Bilirubin (0.0-1.2) mg/dL AST (13-39) Units/L ALT (7-52) Units/L Alkaline Phosphatase (34-104) Units/L Ammonia 67 H (16-53) mcmol/L Troponin I (< 0.04) ng/mL Serum Total Protein (6.4-8.9) g/dL Albumin (3.5-5.7) g/dL Globulin (2.4-3.5) g/dL Albumin/Globulin Ratio (1.1-2.2) Ethyl Alcohol (Less than 10) mg/dL 10/11/18 Range/Units 16:14 WBC (4.3-11.1) K/mcL RBC (4.19-5.50) M/mcL Hgb (12.9-16.9) g/dL Hct (37.5-50.1) % MCV (83.0-100.0) fL MCH (28.0-33.3) pg MCHC (31.6-35.5) g/dL RDW (11.5-14.5) % Plt Count (140-400) K/mcL MPV (9.4-12.4) fL Immature Gran % (0-4) % Seg Neutrophils % % Lymphocytes % % Monocytes % % Eosinophils % % Basophils % % Neutrophils # (1.6-8.9) K/mcL Lymphocytes # (0.6-4.6) K/mcL Monocytes # (0.0-1.3) K/mcL Eosinophils # (0.0-0.6) K/mcL Basophils # (0.0-0.2) K/mcL PT (9.4-12.1) Seconds INR APTT (26.0-36.0) Seconds Sodium 136 (136-145) mEq/L Potassium 4.2 (3.5-5.1) mEq/L Chloride 96 L (98-107) mEq/L Carbon Dioxide 30 H (23-29) mEq/L BUN 26 H (8-23) mg/dL Creatinine 1.68 H (0.70-1.30) mg/dL Est GFR ( Amer) 49 L (> 60) Est GFR (Non-Af Amer) 40 L (> 60) BUN/Creatinine Ratio 15 (6-26) Glucose 147 H (70-105) mg/dL Calculated Osmolality 289 (280-300) Calcium 9.9 (8.6-10.3) mg/dL Total Bilirubin 3.2 H (0.3-1.0) mg/dL Direct Bilirubin 1.0 H (0.0-0.2) mg/dL Indirect Bilirubin 2.2 H (0.0-1.2) mg/dL AST 63 H (13-39) Units/L ALT 47 (7-52) Units/L Alkaline Phosphatase 137 H (34-104) Units/L Ammonia (16-53) mcmol/L Troponin I 0.11 H* (< 0.04) ng/mL Serum Total Protein 7.4 (6.4-8.9) g/dL Albumin 3.9 (3.5-5.7) g/dL Globulin 3.5 (2.4-3.5) g/dL Albumin/Globulin Ratio 1.1 (1.1-2.2) Ethyl Alcohol < 10 (Less than 10) mg/dL - Radiology Data Radiology results reviewed: Yes I reviewed the patient's radiology results. Chest X-Ray 10/11/18 15:49 IMPRESSION: No acute abnormality. D/ / 10/11/2018 16:55:51 Fran Ruggiero MD / miladis Interpreting Provider: Fran Ruggiero MD Head CT 10/11/18 15:49 IMPRESSION: No acute intracranial abnormality. Diffuse atrophic changes with findings suggesting chronic microvascular ischemia D/ / Jeffrey Garcia MD / Jeffrey Garcia MD Interpreting Provider: Jeffrey Garcia MD - EKG Data EKG attestation: Yes I reviewed and interpreted this EKG. EKG results narrative: 10/11/2018 at 15:54. A. fib. Rate 97. QRS 116. QTC 418. Normal axis. No acute ST elevation or depression. Patient does have evidence of bundle branch block formation that is chronic along with ST depression in lead V4 through V6 that is chronic compared to old EKG on 09/21/2018. S.B.A.R. - S.B.A.R. Situation: Demographics, MOA Background: Presenting Complaint, Relevant PMH, Meds, & Allergies Assessment: Vital Signs, Course and respsone to treatment, Exam Concerns, Patient/Family Expectation, Pertinant Lab Results Recommendation: Barrier(s) to disposition, Recommendation based on pending studies, treatments, or consults S.B.A.R. Report Given to: Dr. Patel Attestation Statement - Attestation Attestation: I, Osmel Frankel DO, examined this patient [id number] and my medical decision-making was reviewed with Dr. Miguel Angel Yee, Resident Physician. I agree with the documented findings, disposition and treatment plan as described except to the extent set forth below. Please see my progress notes for details.
[2018-10-11] MEDS ORDERED: Ketorolac 15 MG/ML VIAL IVP ONE (15:50)
[2018-10-11] MEDS ORDERED: Metoclopramide 10 MG/2 ML VIAL IVP ONE (15:50)
[2018-10-11 16:31] LABS: Basophils # 0.1 K/mcL (0.0-0.2); Basophils % 0.9 %; Eosinophils # 0.1 K/mcL (0.0-0.6); Eosinophils % 1.2 %; Hematocrit 43.5 % (37.5-50.1); Hemoglobin 14.5 g/dL (12.9-16.9); Immature Granulocytes % 0.3 % (0-4); Lymphocytes # 1.3 K/mcL (0.6-4.6); Lymphocytes % 19.5 %; Mean Corpuscular HGB Conc 33.3 g/dL (31.6-35.5); Mean Corpuscular Hemoglobin 32.6 pg (28.0-33.3); Mean Corpuscular Volume 97.8 fL (83.0-100.0); Mean Platelet Volume 10.8 fL (9.4-12.4); Monocytes # 0.7 K/mcL (0.0-1.3); Monocytes % 10.7 %; Neutrophils # 4.5 K/mcL (1.6-8.9); Platelet Count 171 K/mcL (140-400); Red Blood Count 4.45 M/mcL (4.19-5.50); Segmented Neutrophils % 67.4 %
--- NOTE | 2018-10-11 16:33 | Emergency Department Note ---
Disposition Clinical Impression: Hyperammonemia, Confusion Headache Qualifiers: Headache type: unspecified Headache chronicity pattern: acute headache Intr actability: intractable Qualified Code(s): R51 - Headache Disposition: Admitted As Inpatient Condition: Good Referrals: NONE,PCP [Non-Partnered Physician] - Forms: ED Satisfaction Letter Time of Disposition: 18:38 General Adult HPI - General Chief complaint: ED Headache Stated complaint: HENRIQUEZ "confusion" Time Seen by Provider: 10/11/18 15:33 Source: patient Mode of arrival: ambulatory Limitations: other (Mild confusion, has difficulty finding words, repeat himself a lot) - History of Present Illness Pain Scale: 7 - Related Data Home Medications Medication Instructions Recorded Confirmed ALPRAZolam [Xanax 0.5 MG Tablet] 1 mg PO HS #0 09/18/15 10/09/18 Ascorbate Calcium [Vitamin C] 1,000 mg PO DAILY #0 09/18/15 10/09/18 Aspirin 81 mg PO DAILY #0 09/18/15 10/09/18 Docusate [Colace] 100 mg PO DAILY #0 09/18/15 10/09/18 Doxepin HCl 100 mg PO HS #0 09/18/15 10/09/18 Furosemide [Lasix] 40 mg PO TID #0 09/18/15 10/09/18 Multivit-Min/FA/Lycopen/Lutein 1 tab PO DAILY #0 09/18/15 10/09/18 [Adults 50+ Multivitamin Tablet] Potassium Chloride [K-Tab ER] 10 meq PO DAILY #0 09/18/15 10/09/18 Acetaminophen [Tylenol] 500 mg PO BID PRN 01/23/16 10/09/18 Nitroglycerin [Nitrostat] 0.4 mg SL Q5M PRN 01/23/16 10/09/18 Insulin Glargine,Hum.rec.anlog 66 unit SQ QAM 02/15/17 10/09/18 [Lantus Solostar] Isosorbide MONOnitrate [Isosorbide 120 mg PO DAILY 04/11/17 10/09/18 Mononitrate ER] Loratadine [Allergy Relief] 10 mg PO BID 04/11/17 10/09/18 [place]-3/Dha/Epa/Fish Oil [Fish Oil 1,000 mg PO DAILY 04/11/17 10/09/18 1,000 mg Softgel] Ferrous Sulfate [Iron] 325 mg PO BID 10/15/17 10/09/18 glipiZIDE [Glipizide] 10 mg PO BID 10/15/17 10/09/18 Carboxymethylcellulos/Glycerin 1 drop BOTH EYES QID 06/27/18 10/09/18 [Refresh Optive Gel Eye Drops] Dextrose [Glucose] 16 gm PO AD 06/27/18 10/09/18 Insulin Glargine,Hum.rec.anlog 28 unit SQ QPM 06/27/18 10/09/18 [Lantus Solostar] Levothyroxine Sodium 150 mcg PO QAM 06/27/18 10/09/18 Rosuvastatin Calcium [Crestor] 20 mg PO DAILY 06/27/18 10/09/18 Zolpidem [Ambien] 5 mg PO HS 06/27/18 10/09/18 Baclofen [Lioresal] 10 mg PO TID PRN 09/23/18 10/09/18 Metoprolol Succinate [Toprol Xl] 50 mg PO DAILY 09/23/18 10/09/18 Pantoprazole Sodium 40 mg PO BID 09/23/18 10/09/18 Previous Rx's Medication Instructions Recorded Apixaban [Eliquis] 2.5 mg PO BID #90 tablet 01/26/16 Lactulose 10 gm PO BID PRN #300 mls 09/23/18 Allergies Allergy/AdvReac Type Severity Reaction Status Date / Time tamsulosin Allergy Rash Verified 08/14/18 14:24 Penicillins AdvReac Mild Anaphylaxis Verified 08/14/18 14:24 Constitutional: Denies: fever Cardiovascular: Denies: chest pain Respiratory: Denies: cough, dyspnea Gastrointestinal: Denies: abdominal pain, nausea, vomiting, diarrhea Genitourinary: Denies: urgency, dysuria Musculoskeletal: Denies: back pain, neck pain Integumentary: Denies: rash Neurological: Reports: headache. Denies: weakness, numbness, paresthesias Past Medical History - Past Medical History Medical history: Reports: aortic aneurysm, arthritis, atrial fibrillation, cardiomyopathy, CHF, coronary artery disease, DVT, diabetes, GERD, hyperlipidemia, hypertension, myocardial infarction, peripheral artery disease, thyroid disease, other Surgical history: Reports: angioplasty/stent, appendectomy, cholecystectomy, coronary bypass (CABG), LE Bypass, LE stent(s), LE vascular intervention, other Psychiatric history: Reports: anxiety, depression - Social History Smoking Status: Never smoker Smokeless Tobacco Status: No Alcohol use: Reports: none Drug use: Reports: none Physical Exam - General Limitations: other (Mild confusion, has difficulty finding words, repeat himself a lot) General appearance: alert, in no apparent distress Course Vital Signs Temperature 97.4 F L 10/11/18 15:18 Pulse Rate 92 10/11/18 15:18 Respiratory Rate 18 10/11/18 15:18 Blood Pressure 157/80 10/11/18 15:18 O2 Sat by Pulse Oximetry 98 10/11/18 15:18 Temperature 97.4 F L 10/11/18 15:18 Pulse Rate 80 10/11/18 16:27 Respiratory Rate 18 10/11/18 16:27 Blood Pressure 157/102 10/11/18 16:27 O2 Sat by Pulse Oximetry 93 10/11/18 16:27 Oxygen Delivery Oxygen Delivery Room Air Medical Decision Making - Lab Data Result diagrams: 10/11/18 16:14 10/11/18 16:14 Lab Results 10/11/18 10/11/18 10/11/18 Range/Units 16:14 16:14 16:14 WBC 6.6 (4.3-11.1) K/mcL RBC 4.45 (4.19-5.50) M/mcL Hgb 14.5 (12.9-16.9) g/dL Hct 43.5 (37.5-50.1) % MCV 97.8 (83.0-100.0) fL MCH 32.6 (28.0-33.3) pg MCHC 33.3 (31.6-35.5) g/dL RDW 15.0 H (11.5-14.5) % Plt Count 171 (140-400) K/mcL MPV 10.8 (9.4-12.4) fL Immature Gran % 0.3 (0-4) % Seg Neutrophils % 67.4 % Lymphocytes % 19.5 % Monocytes % 10.7 % Eosinophils % 1.2 % Basophils % 0.9 % Neutrophils # 4.5 (1.6-8.9) K/mcL Lymphocytes # 1.3 (0.6-4.6) K/mcL Monocytes # 0.7 (0.0-1.3) K/mcL Eosinophils # 0.1 (0.0-0.6) K/mcL Basophils # 0.1 (0.0-0.2) K/mcL PT 17.0 H (9.4-12.1) Seconds INR 1.5 APTT 35.5 (26.0-36.0) Seconds Sodium (136-145) mEq/L Potassium (3.5-5.1) mEq/L Chloride (98-107) mEq/L Carbon Dioxide (23-29) mEq/L BUN (8-23) mg/dL Creatinine (0.70-1.30) mg/dL Est GFR ( Amer) (> 60) Est GFR (Non-Af Amer) (> 60) BUN/Creatinine Ratio (6-26) Glucose (70-105) mg/dL POC Glucose (70-99) mg/dL Calculated Osmolality (280-300) Calcium (8.6-10.3) mg/dL Total Bilirubin (0.3-1.0) mg/dL Direct Bilirubin (0.0-0.2) mg/dL Indirect Bilirubin (0.0-1.2) mg/dL AST (13-39) Units/L ALT (7-52) Units/L Alkaline Phosphatase (34-104) Units/L Ammonia 67 H (16-53) mcmol/L Troponin I (< 0.04) ng/mL Serum Total Protein (6.4-8.9) g/dL Albumin (3.5-5.7) g/dL Globulin (2.4-3.5) g/dL Albumin/Globulin Ratio (1.1-2.2) Ethyl Alcohol (Less than 10) mg/dL 10/11/18 10/11/18 Range/Units 16:14 18:30 WBC (4.3-11.1) K/mcL RBC (4.19-5.50) M/mcL Hgb (12.9-16.9) g/dL Hct (37.5-50.1) % MCV (83.0-100.0) fL MCH (28.0-33.3) pg MCHC (31.6-35.5) g/dL RDW (11.5-14.5) % Plt Count (140-400) K/mcL MPV (9.4-12.4) fL Immature Gran % (0-4) % Seg Neutrophils % % Lymphocytes % % Monocytes % % Eosinophils % % Basophils % % Neutrophils # (1.6-8.9) K/mcL Lymphocytes # (0.6-4.6) K/mcL Monocytes # (0.0-1.3) K/mcL Eosinophils # (0.0-0.6) K/mcL Basophils # (0.0-0.2) K/mcL PT (9.4-12.1) Seconds INR APTT (26.0-36.0) Seconds Sodium 136 (136-145) mEq/L Potassium 4.2 (3.5-5.1) mEq/L Chloride 96 L (98-107) mEq/L Carbon Dioxide 30 H (23-29) mEq/L BUN 26 H (8-23) mg/dL Creatinine 1.68 H (0.70-1.30) mg/dL Est GFR ( Amer) 49 L (> 60) Est GFR (Non-Af Amer) 40 L (> 60) BUN/Creatinine Ratio 15 (6-26) Glucose 147 H (70-105) mg/dL POC Glucose 113 H (70-99) mg/dL Calculated Osmolality 289 (280-300) Calcium 9.9 (8.6-10.3) mg/dL Total Bilirubin 3.2 H (0.3-1.0) mg/dL Direct Bilirubin 1.0 H (0.0-0.2) mg/dL Indirect Bilirubin 2.2 H (0.0-1.2) mg/dL AST 63 H (13-39) Units/L ALT 47 (7-52) Units/L Alkaline Phosphatase 137 H (34-104) Units/L Ammonia (16-53) mcmol/L Troponin I 0.11 H* (< 0.04) ng/mL Serum Total Protein 7.4 (6.4-8.9) g/dL Albumin 3.9 (3.5-5.7) g/dL Globulin 3.5 (2.4-3.5) g/dL Albumin/Globulin Ratio 1.1 (1.1-2.2) Ethyl Alcohol < 10 (Less than 10) mg/dL Attestation Statement - Attestation Attestation: I, Osmel Frankel DO, examined this patient [id number] and my medical decision-making was reviewed with Dr. Miguel Angel Yee, Resident Physician. I agree with the documented findings, disposition and treatment plan as described except to the extent set forth below. Please see my progress notes for details. 73-year-old male presents emergency room in the care of the family member. Patient presented here today secondary to confusion and a headache. Patient was recently diagnosed with liver failure and cirrhosis. He has had elevated a mmonia levels. He was just recently discharged from the hospital within the last week. Family member denied any active fevers at home. He has had intermittent nausea but no vomiting or diarrhea. Denied headaches up until last 24 hours. He has not fallen or injured himself. Currently denying chest pain or shortness of breath. He has no other complaints or issues at this time. Patient appears to be alert and answers questions appropriately. Family member confirms that is acting appropriately at this time. She notices intermittent confusion. Patient is resting in the bed at this time mucous membranes are dry. Oropharynx is patent. Skin appears to be normal in coloration with no spe cific signs of jaundice or rash. Lungs are clear to auscultation bilaterally. Heart is regular with no murmurs. Abdomen is soft with no guarding rigidity or peritoneal symptoms at this time. He does have a small fluid wave. Extremities otherwise normal. Does have slight pitting edema bilaterally in the lower legs. He has normal pulses in the radial DP and PT distributions bilaterally. There are symmetrical. He has no other acute concerns or issues this point. Patient's abdomen is not rigid or peritoneal. Patient does feel warm to the touch on his skin. Concern is noted for infectious etiology including pneumonia, viral syndrome, spontaneous bacterial peritonitis. Abdomen is not consistent with that examination finding at this time. Patient will have workup completed with concern for potential elevated ammonia and hepatic encephalopathy. CT imaging of the head along with chest x-ray EKG CBC chemistry troponin liver function testing urinalysis and ammonia will be collected. Blood cultures were also be added on as needed. Influenza as well as also be collected. Patient is otherwise stable but does require further workup and evaluation. See detailed documentation the physical exam, medical intervention, medical decision-making and disposition in the resident physician's note. No critical care pad the patient's treatment course at this time. l [id number] Patient has stable labs. Patient has chronic renal insufficiency as well as a chronically elevated troponin. CT imaging of the head as well as chest x-ray unremarkable this time. Patient will be admitted for confusion and what appears to be liver related failure causing the symptoms were this time. Lengthy discussion was had with the patient the family and they are comfortable with admission of this time. No other immediate intervention is required. Patient's white blood cell count is normal so there is no immediate justification for peritoneal lavage looking for infection. Patient's abdomen is normal and presentation this time. The hospitalist Dr. pappas reviewed the case. No other recommendations or concerns at this point. Patient is otherwise clinically stable. Patient will be monitored here in the emergency Department of the admission process is completed
[2018-10-11 16:39] LABS: INR 1.5
[2018-10-11 16:42] LABS: Activated Partial Thrombo Time 35.5 Seconds (26.0-36.0)
[2018-10-11 17:05] LABS: Alanine Aminotransferase 47 Units/L (7-52); Albumin 3.9 g/dL (3.5-5.7); Albumin/Globulin Ratio 1.1 (1.1-2.2); Alkaline Phosphatase 137 Units/L (34-104); Aspartate Amino Transferase 63 Units/L (13-39); BUN/Creatinine Ratio 15 (6-26); Bilirubin,Indirect 2.2 mg/dL (0.0-1.2); Bilirubin,Total 3.2 mg/dL (0.3-1.0); Blood Urea Nitrogen 26 mg/dL (8-23); Calcium 9.9 mg/dL (8.6-10.3); Carbon Dioxide 30 mEq/L (23-29); Chloride 96 mEq/L (98-107); Ethanol < 10 mg/dL (Less than 10); Globulin 3.5 g/dL (2.4-3.5); Glucose 147 mg/dL (70-105); Osmolality,Calculated 289 (280-300); Potassium 4.2 mEq/L (3.5-5.1); Sodium 136 mEq/L (136-145); Total Protein 7.4 g/dL (6.4-8.9); Troponin I 0.11 ng/mL (< 0.04); eGFR For Non-African Americans 40 (> 60)
[2018-10-11] MEDS ORDERED: Aspirin 325 MG TABLET PO ONE (17:23)
[2018-10-11 20:36] LABS: Bilirubin,Urine Negative (Negative); Blood,Urine Negative (Negative); Clarity,Urine Cloudy (Clear); Color,Urine Dark Yellow (Yellow); Glucose,Urine (UA) Normal (Normal); Ketones,Urine Negative (Negative); Leukocyte Esterase,Urine Moderate (Negative); Nitrite,Urine Negative (Negative); Protein,Urine 30 mg/dL (Neg-Trace); Specific Gravity,Urine 1.013 (1.010-1.025); Urobilinogen,Urine Normal (Normal)
[2018-10-11 20:38] LABS: Bacteria,Urine Many per hpf (None-Few); Hyaline Casts,Urine Few per lpf (None-Few); RBC,Urine 0-3 per hpf (0-3); Squamous Epithelial Cell,Urine Few per lpf (None-Few); WBC,Urine TNTC per hpf (0-3)
[2018-10-11] MEDS ORDERED: Naloxone 0.4 MG/ML INJ IVP PRN (21:00)
--- NOTE | 2018-10-11 21:13 | Internal Med History&Physical ---
Date of Encounter: 10/12/18 Time of Encounter: 21:20 Internal Medicine - H&P: HPI Chief complaint: Acute encephalopathy Admitted From: Emergency Dept Plans for Post Hospital Care: Home History of present illness: Mr. Romero is a 73 year old male Patient presented to the emergency room for confusion and headache. He has a history of cirrhosis, atrial fibrillation and hyperammonemia. His headache began 3-4 days ago, intermittent throughout the day but sharp shooting pain to the left side of his head that last for a few seconds at a time. He has been trying to take Excedrin Migraine without improvement. He is also had occasional blurry vision but denies numbness, weakness, neck stiffness, chest pain, shortness of breath as well as history of migraines. He has not had any recent injuries or falls. In the emergency room patient's initial vital signs were within normal limits. Patient's CBC showed a platelet count of 171 and hemoglobin of 14.5. Patient's INR was 1.5, and BMP showed an FRANCES with an elevated creatinine of 1.68. His baseline is about 1.5. His bilirubin was elevated, with an indirect of 2.2 and direct of 1.0. His ammonia level was 67, troponin 0.11 (which is chronically elevated around this level), AST 63 and ALT 47. Alkaline phosphatase was 137. Urinalysis was performed that showed moderate leukocyte esterase with numerous microscopic white blood cells. Urine nitrite was negative. Patient's blood alcohol level was less than 10. Chest x-ray was performed that showed no acute abnormality. Head CT was also performed that showed no acute intracranial abnormality. There was diffuse atrophic changes suggesting chronic microvascular ischemia. In the emergency room, patient's exam was notable for patient being mildly confused and repeating himself a lot. He also had some trouble finding his words. There are no focal neurological deficits or neck stiffness noted. An EKG showed atrial fibrillation with a rate of 97. There is no acute ST elevations or depressions. No significant changes compared to old EKG. He was given 325 mg dose of aspirin, 10 mg ketorolac 10 mg Reglan and admitted to the hospital floor for further management. Urine cultures were obtained. Upon my evaluation, patient is resting comfortably in the hospital bed in no acute distress. He states that he still has head pain, which has not improved with excedrine or toradol. Patient notes the rash has been there over the last few days as well. He denies chest pain, abdominal pain, nausea, vomiting, diarrhea but thinks he is constipated. I spoke to him regarding his vision changes, and he showed me his cell-phone. The screen has been malfunctioning and he said that when he looks at that screen his vision is blurry. It was blurry to me as well, he needs to have this fixed. Otherwise his vision is at his baseline. He is a full code. Past Med Surg Social Fam HX - Past Medical History Medical history: aortic aneurysm, arthritis, atrial fibrillation, cardiomyopathy, CHF, coronary artery disease, DVT, diabetes, GERD, hype rlipidemia, hypertension, myocardial infarction, peripheral artery disease, thyroid disease, other Additional medical history: SLEEP APNEA, ANXIETY, HYPOTHRYROID,RESTLESS LEG, PVD Psychiatric history: anxiety, depression - Past Surgical History Surgical History: angioplasty/stent, appendectomy, cholecystectomy, coronary bypass (CABG), LE Bypass, LE stent(s), LE vascular intervention, other Additional surgical history: heart stent x 3, holter monitor. - Social History Smoking Status: Never smoker Smokeless Tobacco Status: No Alcohol use: none Drug use: none - Family History Mother Living Status: Hx Family Cardiac Disorders: No Hx Family Respiratory Disorders: No Hx Family Cancer: No Father Living Status: Hx Family Cardiac Disorders: Yes Hx Family Cancer: No Hx Family GI Disorders: No Hx Family Endocrine Disorder: Yes Internal Medicine - H&P: Meds ALPRAZolam [Xanax 0.5 MG Tablet] 1 mg PO HS #0 09/18/15 [History] Ascorbate Calcium [Vitamin C] 1,000 mg PO DAILY #0 09/18/15 [History] Aspirin 81 mg PO DAILY #0 09/18/15 [History] Docusate [Colace] 100 mg PO DAILY #0 09/18/15 [History] Doxepin HCl 100 mg PO HS #0 09/18/15 [History] Furosemide [Lasix] 40 mg PO TID #0 09/18/15 [History] Multivit-Min/FA/Lycopen/Lutein [Adults 50+ Multivitamin Tablet] 1 tab PO DAILY #0 09/18/15 [History] Potassium Chloride [K-Tab ER] 10 meq PO DAILY #0 09/18/15 [History] Acetaminophen [Tylenol] 500 mg PO BID PRN 01/23/16 [History] Nitroglycerin [Nitrostat] 0.4 mg SL Q5M PRN 01/23/16 [History] Apixaban [Eliquis] 2.5 mg PO BID #90 tablet 01/26/16 [Rx] Insulin Glargine,Hum.rec.anlog [Lantus Solostar] 66 unit SQ QAM 02/15/17 [History] Loratadine [Allergy Relief] 10 mg PO BID 04/11/17 [History] [place]-3/Dha/Epa/Fish Oil [Fish Oil 1,000 mg Softgel] 1,000 mg PO DAILY 04/11/17 [History] Ferrous Sulfate [Iron] 325 mg PO BID 10/15/17 [History] glipiZIDE [Glipizide] 10 mg PO BID 10/15/17 [History] Carboxymethylcellulos/Glycerin [Refresh Optive Gel Eye Drops] 1 drop BOTH EYES QID PRN 06/27/18 [History] Insulin Glargine,Hum.rec.anlog [Lantus Solostar] 28 unit SQ QPM 06/27/18 [History] Levothyroxine Sodium 150 mcg PO QAM 06/27/18 [History] Rosuvastatin Calcium [Crestor] 20 mg PO QPM 06/27/18 [History] Baclofen [Lioresal] 10 mg PO TID PRN 09/23/18 [History] Metoprolol Succinate [Toprol Xl] 50 mg PO DAILY 09/23/18 [History] Pantoprazole Sodium 40 mg PO BID 09/23/18 [History] Isosorbide MONOnitrate [Isosorbide Mononitrate ER] 120 mg PO DAILY 10/11/18 [H istory] Lactulose 15 ml PO TID 10/11/18 [History] Allergy/AdvReac Type Severity Reaction Status Date / Time tamsulosin Allergy Rash Verified 08/14/18 14:24 Penicillins AdvReac Mild Anaphylaxis Verified 08/14/18 14:24 All Systems PM: A 10-system review of systems was performed and is negative for pertinent findings except as documented above in the HPI. - Constitutional Vitals: Temp Pulse Resp BP Pulse Ox 99.3 F 86 18 159/77 92 10/11/18 20:12 10/11/18 20:12 10/11/18 20:12 10/11/18 20:12 10/11/18 20:12 General appearance: Present: cooperative, A&O X 3, pleasant, no acute distress, answers questions appropriately Exam: - - Head Head exam: Present: normal inspection Additional comments: Red rash to upper left face and scalp, non-vesicular, non-pruritic - Eye Eye exam: Present: EOMI, normal appearance, conjuntiva pink. Absent: scleral icterus - Neck Neck exam general surgery: Present: full ROM - Respiratory Respiratory exam: Present: CTAB. Absent: rales, respiratory distress, rhonchi, wheezes - Cardiovascular Cardiovascular exam: Present: irregular rhythm. Absent: diastolic murmur, systolic murmur - GI/Abdominal GI/Abdominal exam: Present: normal bowel sounds, soft. Absent: tenderness - Extremities Exam Extremities exam: Present: warm, radial pulses palpable and symmetrical. Absent: calf tenderness, pedal edema, tenderness - Neurological Exam Neurological exam: Present: no focal deficits, strengths equal and symetr throughout. Absent: motor sensory deficit, facial droop, speech deficit - Skin Skin exam: Present: dry, erythema, normal color, rash, warm. Absent: vesicles Additional comments: As discribed above, patient does have a non-vesicular rash on his upper face and scalp on the left side. No involvement within the orbit. Internal Med - H&P Results - Labs CBC & Chem 7: 10/11/18 16:14 10/11/18 16:14 Labs: Short CBC 10/11/18 Range/Units 16:14 WBC 6.6 (4.3-11.1) K/mcL Hgb 14.5 (12.9-16.9) g/dL Hct 43.5 (37.5-50.1) % Plt Count 171 (140-400) K/mcL Neutrophils # 4.5 (1.6-8.9) K/mcL BMP 10/11/18 16:14 Sodium 136 Potassium 4.2 Chloride 96 L Carbon Dioxide 30 H BUN 26 H Creatinine 1.68 H Glucose 147 H Calcium 9.9 Cardiac Enzymes 10/11/18 Range/Units 16:14 Troponin I 0.11 H* (< 0.04) ng/mL Liver Function 10/11/18 Range/Units 16:14 Total Bilirubin 3.2 H (0.3-1.0) mg/dL Direct Bilirubin 1.0 H (0.0-0.2) mg/dL AST 63 H (13-39) Units/L ALT 47 (7-52) Units/L Alkaline Phosphatase 137 H (34-104) Units/L Albumin 3.9 (3.5-5.7) g/dL Urine 10/11/18 Range/Units 19:57 Urine Color Dark Yellow (Yellow) Urine Clarity Cloudy A (Clear) Urine pH 6.0 (5.0-8.0) pH Units Ur Specific Edgar 1.013 (1.010-1.025) Urine Protein 30 H (Neg-Trace) mg/dL Urine Glucose (UA) Normal (Normal) mg/dL - Impressions ITS Impressions Chest X-Ray 10/11/18 15:49 IMPRESSION: No acute abnormality. D/ / 10/11/2018 16:55:51 [facility]uggiero [facility] Interpreting Provider: Fran Ruggiero MD Head CT 10/11/18 15:49 IMPRESSION: No acute intracranial abnormality. Diffuse atrophic changes with findings suggesting chronic microvascular ischemia D/ / Jeffrey Garcia MD / Jeffrey Garcia MD Interpreting Provider: Jeffrey Garcia MD - Assessment and Plan (1) Acute encephalopathy Current Visit: Yes Status: Acute Assessment and plan: Could be secondary to elevated ammonia, no neck stiffness to indicate meningitis. Patient does appear to have a shingles infection on the left side of his face. Start lactulose, titrate to 3 bowel movements a day. (2) Rash Current Visit: Yes Status: Acute Assessment and plan: While not vesicular, rash to upper face and scalp could be early shingles. Patient's head pain is right in the area of the rash. No involvement within the orbit, left eye sclera not red. Start acyclovir Continue to monitor for rash spread (3) Cirrhosis Current Visit: No Status: Acute Assessment and plan: Secondary to alcohol use. Patient takes lactulose at home, but has not been having bowel movements as regularly as he should. Patient's ammonia level is 67. Continue laculose as above. Qualifiers: Hepatic cirrhosis type: alcoholic cirrhosis Ascites presence: without ascites Qualified Code(s): K70.30 - Alcoholic cirrhosis of liver without ascites (4) Atrial fibrillation Current Visit: No Status: Chronic Assessment and plan: History of atrial fibrillation, on eliquis and metoprolol. Rate is in the mid 90's. Continue home meds Cardiac monitoring Qualifiers: Atrial fibrillation type: chronic Qualified Code(s): I48.2 - Chronic atrial fibrillation (5) FRANCES (acute kidney injury) Current Visit: No Status: Resolved Assessment and plan: Patient's Creatinine is slightly above his baseline, history of CKD stage III. IV fluid hydration Repeat labs in the morning (6) Type 2 diabetes mellitus Current Visit: No Status: Chronic Assessment and plan: Patient is an insulin dependent diabetic Monitor sugars with meals and at night Diabetic diet Low dose insulin sliding scale as needed Hold home meds. Qualifiers: Diabetes mellitus ferry terminal agent insulin use: with ferry terminal agent use Diabetes mellitus complication status: without complication Qualified Code(s): E11.9 - Type 2 diabetes mellitus without complications; Z79.4 - residential (current) use of insulin (7) DVT prophylaxis Current Visit: No Status: Acute Assessment and plan: Continue home eliquis - Time Spent With Patient Total time spent is greater than 50% in coordination of care (as documented) at patient's floor/unit and/or counseling patient:
[2018-10-11] MEDS: Lactulose Oral Soln 20 GM/30 ML UDC PO SCH (23:33)
[2018-10-11] MEDS ORDERED: Dextrose 4 GM Chewable Tablets PO PRN ×2 (23:43)
[2018-10-11] MEDS ORDERED: *HR* Dextrose 50 % in Water (Syg) 50 ML SYRINGE IVP PRN (23:43)
[2018-10-11] MEDS ORDERED: D5% in Water 1,000 ML IVC PRN (23:43)
[2018-10-11] MEDS ORDERED: Dextrose Gel 15 GM/37.5 ML TUBE PO PRN ×2 (23:43)
[2018-10-12] MEDS ORDERED: 0.9 % Sodium Chloride 500 ML IVC ONE (00:16)
[2018-10-12] MEDS ORDERED: Acetaminophen 325 MG TABLET PO PRN (04:10)
[2018-10-12 06:48] LABS: Hematocrit 40.8 % (37.5-50.1); Hemoglobin 13.7 g/dL (12.9-16.9); Mean Corpuscular HGB Conc 33.6 g/dL (31.6-35.5); Mean Corpuscular Hemoglobin 32.5 pg (28.0-33.3); Mean Corpuscular Volume 96.9 fL (83.0-100.0); Mean Platelet Volume 10.3 fL (9.4-12.4); Platelet Count 141 K/mcL (140-400); Red Blood Count 4.21 M/mcL (4.19-5.50); Red Cell Distribution Width 15.1 % (11.5-14.5)
[2018-10-12 06:57] LABS: INR 1.7; Prothrombin Time 18.7 Seconds (9.4-12.1)
[2018-10-12 07:08] LABS: Albumin 3.5 g/dL (3.5-5.7); Albumin/Globulin Ratio 1.1 (1.1-2.2); Bilirubin,Total 3.3 mg/dL (0.3-1.0); Calcium 9.6 mg/dL (8.6-10.3); Globulin 3.1 g/dL (2.4-3.5); Total Protein 6.6 g/dL (6.4-8.9)
[2018-10-12 07:33] LABS: Troponin I 0.13 ng/mL (< 0.04)
[2018-10-12] MEDS: Insulin LISPRO 300 UNITS/3 ML VIAL SQ SCH ×4 (07:54→21:13)
[2018-10-12] MEDS: Aspirin 81 MG TAB.CHEW PO SCH (08:35)
[2018-10-12] MEDS: Metoprolol XL (24 HR) Succ 50 MG TAB.ER.24H PO SCH (08:35)
[2018-10-12] MEDS: Lactulose Oral Soln 20 GM/30 ML UDC PO SCH ×2 (08:35→21:21)
[2018-10-12] MEDS: Apixaban 5 MG TABLET PO SCH ×2 (08:35→21:16)
[2018-10-12] MEDS: 0.9 % Sodium Chloride 1,000 ML IVC SCH ×2 (08:53→21:22)
[2018-10-12] MEDS ORDERED: predniSONE 20 MG TABLET PO ONE (09:04)
[2018-10-12] MEDS: Gabapentin 100 MG CAPSULE PO SCH ×3 (11:05→21:16)
--- NOTE | 2018-10-12 11:28 | Internal Med Progress Note ---
Hospitalist Progress Note - Encounter Date of Encounter: 10/12/18 Time of Encounter: 11:26 - Subjective Interval History: Seen and examined at bedside. Patient is new to me, information obtainedfrom chart review and conversation with as patient is alert and oriented but forgetful and unable to provide details. Discussed with over the phone who reported increased confusion over the past 2-3 days with associated headache and rash to left forehead. reported patient is forgetful at times but not normally confused and this is worse than his baseline. Patient apparently has been complaining of a headache with a rash that started on Saturday10/10/18. At time my exam he still complaining of a headache. Described as throbbing and stinging. Localized to left forehead/eye area. Does have some photosensitivity. Reports blurred vision to left eye. Case discussed with Dr. Helm and Dr. Hays - Exam Vitals: Temp Pulse Resp BP Pulse Ox 99.1 F 96 16 143/87 98 10/12/18 08:12 10/12/18 08:12 10/12/18 08:12 10/12/18 08:12 10/12/18 08:12 Exam: General appearance: Present: pleasant, no acute distress - Head Head exam: Present: atraumatic, normocephalic - Eye Eye exam: Present: PERRL, conjuntiva pink, sclera anicteric Pupils: Present: PERRL - Neck Neck exam general surgery: Present: supple, trachea midline. Absent: lymphadenopathy - Respiratory Respiratory exam: Present: chest wall tenderness, CTAB. Absent: accessory muscle use, rales, rhonchi, wheezes - Cardiovascular Cardiovascular exam: Present: RRR, +S1, +S2. Absent: diastolic murmur, gallop, rubs, systolic murmur - GI/Abdominal GI/Abdominal exam: Present: normal bowel sounds, soft, no peritoneal signs. Absent: distended, tenderness - Extremities Exam Extremities exam: Present: warm, radial pulses palpable and symmetrical. Absent: calf tenderness, cyanotic, pedal edema - Neurological Exam Neurological exam: Present: CN II-XII intact, oriented X3 but forgetful. Poor historian, unable to provide details. No focal deficits. Absent: pronater drift, facial droop, speech deficit - Skin Skin exam: non-vesicular rash on his upper face and scalp on the left side e xtending toward eyelid. - Assessment and Plan (1) Shingles Current Visit: Yes Status: Acute Assessment and Plan: suspected with nonvascular rash to left forehead/scalp extending toward eyelid. Symptomatic with headache, exquisite pain and blurred vision. Change acyclovir to IV. Give prednisone 60 mg PO X 1 now. Low dose gabapentin for pain/headache. Closely monitor neurological/ophthalmological status. Neurology, ID and Ophthalmology consulted (2) Acute encephalopathy Current Visit: Yes Status: Acute Assessment and Plan: baseline mentation alert and oriented with occasional forgetfulness. Now with increased confusion per . Alert and oriented to person and place at time of exam. Unable to give details that led to his hospitalization. Neurologically intact. No focal deficits. Suspect multifactorial with hospital shingles, worsening renal failure and possible UTI. Head CT non-acute. Continue treating underlying causes. Monitor. Hold on further imaging at this time. Neurology consulted (3) Chronic kidney disease Current Visit: No Status: Chronic Assessment and Plan: Has known kidney disease. Now with acute on chronic kidney disease. Cr 1.8; slightly worse than baseline. Start cont IV fluids. Avoid nephrotoxic agents as possible. If no improvement with IV fluids consult nephrology (4) Elevated troponin Current Visit: No Status: Acute Assessment and Plan: serial troponin 0.11, 0.13, 0.13. Asymptomatic. Denied chest pain. EKG without acute ST changes. Possibly secondary to worsening renal function. Repeat 1 more troponin and if remains elevated or trending up consider cardiology consultation. Monitor on telemetry (5) CAD (coronary artery disease) Current Visit: No Status: Chronic Assessment and Plan: per hx. 02/2017 [facility] [place] with mLCx 50%. LMCA 40%, pLAD 40%, mLAD 100%, pRCA 100%, OBANDO-mLAD patent, SVG-RPDA patent, SVG-Ramus occluded. 06/22 [facility] with EF 45% and known mild I CMP. UA did by cardiology and medical therapy recommended. Cont home cardiac medications. (6) Atrial fibrillation Current Visit: No Status: Chronic Assessment and Plan: per hx. Rate controlled. Cont home BB, eliquis (7) Hypothyroidism Current Visit: No Status: Acute Assessment and Plan: per hx. Cont home levothyroxine. (8) DVT prophylaxis Current Visit: No Status: Acute Assessment and Plan: eliquis - Time Spent with Patient Total time spent is greater than 50% in coordination of care (as documented) at patient's floor/unit and/or counseling patient: Internal Medicine: Result - Labs CBC & Chem 7: 10/12/18 06:26 10/12/18 06:26 Labs: Short CBC 10/11/18 10/12/18 Range/Units 16:14 06:26 WBC 6.6 6.1 (4.3-11.1) K/mcL Hgb 14.5 13.7 (12.9-16.9) g/dL Hct 43.5 40.8 (37.5-50.1) % Plt Count 171 141 (140-400) K/mcL Neutrophils # 4.5 (1.6-8.9) K/mcL BMP 10/11/18 10/12/18 16:14 06:26 Sodium 136 135 L Potassium 4.2 4.0 Chloride 96 L 98 Carbon Dioxide 30 H 28 BUN 26 H 30 H Creatinine 1.68 H 1.80 H Glucose 147 H 143 H Calcium 9.9 9.6 Cardiac Enzymes 10/11/18 10/11/18 10/12/18 Range/Units 16:14 21:56 06:26 Troponin I 0.11 H* 0.13 H* 0.13 H* (< 0.04) ng/mL Liver Function 10/11/18 10/12/18 Range/Units 16:14 06:26 Total Bilirubin 3.2 H 3.3 H (0.3-1.0) mg/dL Direct Bilirubin 1.0 H (0.0-0.2) mg/dL AST 63 H 55 H (13-39) Units/L ALT 47 39 (7-52) Units/L Alkaline Phosphatase 137 H 118 H (34-104) Units/L Albumin 3.9 3.5 (3.5-5.7) g/dL Urine 10/11/18 Range/Units 19:57 Urine Color Dark Yellow (Yellow) Urine Clarity Cloudy A (Clear) Urine pH 6.0 (5.0-8.0) pH Units Ur Specific [place] 1.013 (1.010-1.025) Urine Protein 30 H (Neg-Trace) mg/dL Urine Glucose (UA) Normal (Normal) mg/dL - ABG Interpretation ABG results: PT/INR, D-dimer PT 18.7 Seconds (9.4-12.1) H 10/12/18 06:26 - Impressions Impressions Chest X-Ray 10/11/18 15:49 IMPRESSION: No acute abnormality. D/ / 10/11/2018 16:55:51 Fran Ruggiero MD / miladis Interpreting Provider: Fran Ruggiero MD Head CT 10/11/18 15:49 IMPRESSION: No acute intracranial abnormality. Diffuse atrophic changes with findings suggesting chronic microvascular ischemia D/ / Jeffrey Garcia MD / Jeffrey Garcia MD Interpreting Provider: Jeffrey Garcia MD Consult Discharge Plan - Plan Referrals: Franny Stubbs, [employer] [Primary Care Provider] - (3) Chronic kidney disease Qualifiers: Qualified Code(s): N18.4 - Chronic kidney disease, stage 4 (severe) (5) CAD (coronary artery disease) Qualifiers: Qualified Code(s): I25.10 - Atherosclerotic heart disease of unga coronary artery without angina pectoris (6) Atrial fibrillation Qualifiers: Qualified Code(s): I48.2 - Chronic atrial fibrillation (7) Hypothyroidism Qualifiers: Qualified Code(s): E03.9 - Hypothyroidism, unspecified
--- NOTE | 2018-10-12 12:48 | Internal Medicine Consult Note ---
Date of Encounter: 10/12/18 Time of Encounter: 12:40 Internal Medicine - CN: HPI - Data of Consult Requesting Physician: Aracelis Woo MD Patient reports having a rash involving his left upper eyelid left forehead and scalp for approximately 1 week. Patient also reports bad headaches on the left side of his head for approximately 1 week. He reports some blurred vision in the left eye. His past ocular history is negative for surgeries and injuries. He does report that he wears corrective lenses. Examination revealed visual acuity with correction of 20/30 in the right eye and 20/30-1 in the left eye (near equivalent Snellen). External examination revealed a vesicular rash involving the left upper eyelid, left side of the forehead and scalp on the left side. Slit-lamp examination revealed a vesicular rash of the left upper eyelid but the eyelids were otherwise normal. The conjunctiva was normal in both eyes. The cornea was clear in the right eye. Th ere were a few small corneal epithelial defects in the left eye, presumed pseudo-dendrites. The anterior chamber was shallow in both eyes Von Soham grade slit to +1. The iris was normal in both eyes. Intraocular pressures were normal at 14 mmHg in the right eye and 14 mmHg in the left eye by applanation. The pupils were dilated with 1% tropicamide drops. After dilation of the pupils further examination revealed +2 to +3 nuclear sclerosis in the lens in both eyes. The vitreous was normal and clear in both eyes. The optic nerve head in the right eye showed moderate cupping with a cup-to-disc ratio of 0.65. In the left eye the optic nerve head appeared normal with a cup-to-disc ratio of 0.45. The macula, retinal vessels, posterior pole, and retinal periphery were otherwise all normal in both eyes. Impression: 1. 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 2. 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 (Patient is a narrow-angle glaucoma suspect.) 3. Nuclear sclerotic cataracts in both eyes. 4. Type 2 diabetes mellitus without retinopathy noted. Recommendation: 1. Continue treatment with systemic acyclovir. 2. Instill erythromycin ointment into the left eye twice daily for 1 week and t hen continue until all eye irritation in the left eye has resolved. 3. Bacitracin ointment should be applied to the rash twice daily for 1 week or until the rash is dry. 4. Patient should follow-up in the outpatient setting for evaluation of progress with herpes zoster ophthalmicus as well as for evaluation and workup for glaucoma suspect status with anatomically narrow anterior chamber angles. Patient has been seeing doctors at the [facility] and it would be appropriate for him to follow-up there. If need be I will be happy to see him in my office after discharge. Ernesto Helm D.O. - Consult Narrative History of present illness: Mr. Romero is a 73 year old male Past Med Surg Social Fam HX - Past Medical History Medical history: aortic aneurysm, arthritis, atrial fibrillation, cardiomyopathy, CHF, coronary artery disease, DVT, diabetes, GERD, hyper lipidemia, hypertension, myocardial infarction, peripheral artery disease, thyroid disease, other Additional medical history: SLEEP APNEA, ANXIETY, HYPOTHRYROID,RESTLESS LEG, PVD Psychiatric history: anxiety, depression - Past Surgical History Surgical History: angioplasty/stent, appendectomy, cholecystectomy, coronary bypass (CABG), LE Bypass, LE stent(s), LE vascular intervention, other Additional surgical history: heart stent x 3, holter monitor. - Social History Smoking Status: Never smoker Smokeless Tobacco Status: No Alcohol use: none Drug use: none - Family History Father Living Status: Hx Family Cardiac Disorders: Yes Hx Family Cancer: No Hx Family GI Disorders: No Hx Family Endocrine Disorder: Yes Mother Living Status: Hx Family Cardiac Disorders: No Hx Family Respiratory Disorders: No Hx Family Cancer: No Internal Medicine - CN: Meds RX: ALPRAZolam [Xanax 0.5 MG Tablet] 1 mg PO HS #0 09/18/15 [History] RX: Ascorbate Calcium [Vitamin C] 1,000 mg PO DAILY #0 09/18/15 [History] RX: Aspirin 81 mg PO DAILY #0 09/18/15 [History] RX: Docusate [Colace] 100 mg PO DAILY #0 09/18/15 [History] RX: Doxepin HCl 100 mg PO HS #0 09/18/15 [History] RX: Furosemide [Lasix] 40 mg PO TID #0 09/18/15 [History] RX: Multivit-Min/FA/Lycopen/Lutein [Adults 50+ Multivitamin Tablet] 1 tab PO DAILY #0 09/18/15 [History] RX: Potassium Chloride [K-Tab ER] 10 meq PO DAILY #0 09/18/15 [History] RX: Acetaminophen [Tylenol] 500 mg PO BID PRN 01/23/16 [History] RX: Nitroglycerin [Nitrostat] 0.4 mg SL Q5M PRN 01/23/16 [History] RX: Apixaban [Eliquis] 2.5 mg PO BID #90 tablet 01/26/16 [Rx] RX: Insulin Glargine,Hum.rec.anlog [Lantus Solostar] 66 unit SQ QAM 02/15/17 [History] RX: Loratadine [Allergy Relief] 10 mg PO BID 04/11/17 [History] RX: [place]-3/Dha/Epa/Fish Oil [Fish Oil 1,000 mg Softgel] 1,000 mg PO DAILY 04/11/17 [History] RX: Ferrous Sulfate [Iron] 325 mg PO BID 10/15/17 [History] RX: glipiZIDE [Glipizide] 10 mg PO BID 10/15/17 [History] RX: Carboxymethylcellulos/Glycerin [Refresh Optive Gel Eye Drops] 1 drop BOTH EYES QID PRN 06/27/18 [History] RX: Insulin Glargine,Hum.rec.anlog [Lantus Solostar] 28 unit SQ QPM 06/27/18 [History] RX: Levothyroxine Sodium 150 mcg PO QAM 06/27/18 [History] RX: Rosuvastatin Calcium [Crestor] 20 mg PO QPM 06/27/18 [History] Baclofen [Lioresal] 10 mg PO TID PRN 09/23/18 [History] Metoprolol Succinate [Toprol Xl] 50 mg PO DAILY 09/23/18 [History] RX: Pantoprazole Sodium 40 mg PO BID 09/23/18 [History] RX: Isosorbide MONOnitrate [Isosorbide Mononitrate ER] 120 mg PO DAILY 10/11/18 [History] RX: Lactulose 15 ml PO TID 10/11/18 [History] Allergy/AdvReac Type Severity Reaction Status Date / Time tamsulosin Allergy Rash Verified 08/14/18 14:24 Penicillins AdvReac Mild Anaphylaxis Verified 08/14/18 14:24 Internal Med - CN: Exam - Constitutional Vitals: Temp Pulse Resp BP Pulse Ox 98.4 F 89 16 144/98 98 10/12/18 11:41 10/12/18 11:41 10/12/18 11:41 10/12/18 11:41 10/12/18 11:41 Internal Medicine - CN: Reslt - Labs CBC & Chem 7: 10/12/18 06:26 10/12/18 06:26 Labs: Short CBC 10/11/18 10/12/18 Range/Units 16:14 06:26 WBC 6.6 6.1 (4.3-11.1) K/mcL Hgb 14.5 13.7 (12.9-16.9) g/dL Hct 43.5 40.8 (37.5-50.1) % Plt Count 171 141 (140-400) K/mcL Neutrophils # 4.5 (1.6-8.9) K/mcL BMP 10/11/18 10/12/18 16:14 06:26 Sodium 136 135 L Potassium 4.2 4.0 Chloride 96 L 98 Carbon Dioxide 30 H 28 BUN 26 H 30 H Creatinine 1.68 H 1.80 H Glucose 147 H 143 H Calcium 9.9 9.6 Cardiac Enzymes 10/11/18 10/11/18 10/12/18 Range/Units 16:14 21:56 06:26 Troponin I 0.11 H* 0.13 H* 0.13 H* (< 0.04) ng/mL Liver Function 10/11/18 10/12/18 Range/Units 16:14 06:26 Total Bilirubin 3.2 H 3.3 H (0.3-1.0) mg/dL Direct Bilirubin 1.0 H (0.0-0.2) mg/dL AST 63 H 55 H (13-39) Units/L ALT 47 39 (7-52) Units/L Alkaline Phosphatase 137 H 118 H (34-104) Units/L Albumin 3.9 3.5 (3.5-5.7) g/dL Urine 10/11/18 Range/Units 19:57 Urine Color Dark Yellow (Yellow) Urine Clarity Cloudy A (Clear) Urine pH 6.0 (5.0-8.0) pH Units Ur Specific [place] 1.013 (1.010-1.025) Urine Protein 30 H (Neg-Trace) mg/dL Urine Glucose (UA) Normal (Normal) mg/dL - ABG Interpretation ABG results: PT/INR, D-dimer PT 18.7 Seconds (9.4-12.1) H 10/12/18 06:26 - Impressions Impressions Chest X-Ray 10/11/18 15:49 IMPRESSION: No acute abnormality. D/ / 10/11/2018 16:55:51 Fran Ruggiero MD / miladis Interpreting Provider: Fran Ruggiero MD Head CT 10/11/18 15:49 IMPRESSION: No acute intracranial abnormality. Diffuse atrophic changes with findings suggesting chronic microvascular ischemia D/ / Jeffrey Garcia MD / Jeffrey Garcia MD Interpreting Provider: Jeffrey Garcia MD Consult Discharge Plan - Plan Referrals: Franny Stubbs [employer] [Primary Care Provider] -
[2018-10-12] MEDS: cefTRIAXone 1,000 MG in 0.9 % Sodium Chloride Mini Bag 100 ML IVPB SCH (15:27)
[2018-10-12] MEDS: Erythromycin OPTH Oint LEFT EYE SCH ×2 (15:27→21:18)
[2018-10-12] MEDS: *HR* OxyCODONE Immed Rel 5 MG TABLET PO PRN (15:38)
[2018-10-12] MEDS: Acyclovir 800 MG in D5% in Water 250 ML IVPB SCH (16:45)
--- NOTE | 2018-10-12 17:53 | Neurology - Consult Note ---
Date of Encounter: 10/12/18 Time of Encounter: 17:43 Assessment and Plan (1) Herpes zoster ophthalmicus Current Visit: Yes Status: Acute Patient presents with a fairly classic presentation for herpes zoster ophthalmicus. He has the classic herpetiform rash presenting in the first division of the left trigeminal nerve. I do not feel that the superimposed mild confusion is related to this infection however may be associated with the tract infection, or the hyperammonemia. In any regard the current recommended treatment acyclovir 10 mg/kg 3 times a day for 7 days. Also in the case of herpes ophthalmicus I might consider adding Solu-Medrol 50 mg 3 times a day, to be sent home on a tapering dose of steroids. Infectious diseases should also be considered. Otherwise I will reevaluate your request. History of Present Illness HPI: Mr. Romero is a 73 year old male who is being seen for neurologic consultation secondary to herpes zoster ophthalmicus. He began experiencing pain involving the left frontal temporal region of the head about 6 days or so ago. The pain continued to intensify again up to his admission to [facility] or October [id number]. He is also had some minor confusion however he is also been diagnosed with a UTI. He denies any diplopia denies any herpetic lesions anywhere else on his body. Some of the lesions have began to crust however others have not. He is currently on acyclovir and has been given prednisone. He has also been given oxycodone for pain which is helping. Currently he is in no pain and is in no acute distress. He is tolerating the acyclovir without difficulty. Past Med Surg Social Fam HX - Past Medical History Medical history: aortic aneurysm, arthritis, atrial fibrillation, cardiomyopathy, CHF, coronary artery disease, DVT, diabetes, GERD, hyperlipidemia, hypertension, myocardial infarction, peripheral artery disease, thyroid disease, other Additional medical history: SLEEP APNEA, ANXIETY, HYPOTHRYROID,RESTLESS LEG, PVD Psychiatric history: anxiety, depression - Past Surgical History Surgical History: angioplasty/stent, appendectomy, cholecystectomy, coronary bypass (CABG), LE Bypass, LE stent(s), LE vascular intervention, other Additional surgical history: heart stent x 3, holter monitor. - Social History Smoking Status: Never smoker Smokeless Tobacco Status: No Alcohol use: none Drug use: none - Family History Mother Living Status: Hx Family Cardiac Disorders: No Hx Family Respiratory Disorders: No Hx Family Cancer: No Father Living Status: Hx Family Cardiac Disorders: Yes Hx Family Cancer: No Hx Family GI Disorders: No Hx Family Endocrine Disorder: Yes Medications and Allergies ALPRAZolam [Xanax 0.5 MG Tablet] 1 mg PO HS #0 09/18/15 [History] Ascorbate Calcium [Vitamin C] 1,000 mg PO DAILY #0 09/18/15 [History] Aspirin 81 mg PO DAILY #0 09/18/15 [History] Docusate [Colace] 100 mg PO DAILY #0 09/18/15 [History] Doxepin HCl 100 mg PO HS #0 09/18/15 [History] Furosemide [Lasix] 40 mg PO TID #0 09/18/15 [History] Multivit-Min/FA/Lycopen/Lutein [Adults 50+ Multivitamin Tablet] 1 tab PO DAILY #0 09/18/15 [History] Potassium Chloride [K-Tab ER] 10 meq PO DAILY #0 09/18/15 [History] Acetaminophen [Tylenol] 500 mg PO BID PRN 01/23/16 [History] Nitroglycerin [Nitrostat] 0.4 mg SL Q5M PRN 01/23/16 [History] Apixaban [Eliquis] 2.5 mg PO BID #90 tablet 01/26/16 [Rx] Insulin Glargine,Hum.rec.anlog [Lantus Solostar] 66 unit SQ QAM 02/15/17 [History] Loratadine [Allergy Relief] 10 mg PO BID 04/11/17 [History] [place]-3/Dha/Epa/Fish Oil [Fish Oil 1,000 mg Softgel] 1,000 mg PO DAILY 04/11/17 [History] Ferrous Sulfate [Iron] 325 mg PO BID 10/15/17 [History] glipiZIDE [Glipizide] 10 mg PO BID 10/15/17 [History] Carboxymethylcellulos/Glycerin [Refresh Optive Gel Eye Drops] 1 drop BOTH EYES QID PRN 06/27/18 [History] Insulin Glargine,Hum.rec.anlog [Lantus Solostar] 28 unit SQ QPM 06/27/18 [His tory] Levothyroxine Sodium 150 mcg PO QAM 06/27/18 [History] Rosuvastatin Calcium [Crestor] 20 mg PO QPM 06/27/18 [History] Baclofen [Lioresal] 10 mg PO TID PRN 09/23/18 [History] Metoprolol Succinate [Toprol Xl] 50 mg PO DAILY 09/23/18 [History] Pantoprazole Sodium 40 mg PO BID 09/23/18 [History] Isosorbide MONOnitrate [Isosorbide Mononitrate ER] 120 mg PO DAILY 10/11/18 [History] Lactulose 15 ml PO TID 10/11/18 [History] Allergy/AdvReac Type Severity Reaction Status Date / Time tamsulosin Allergy Rash Verified 08/14/18 14:24 Penicillins AdvReac Mild Anaphylaxis Verified 08/14/18 14:24 All Systems: The remainder of the systems were reviewed and are negative Review of Systems: The balance of the systems review is negative. Physical Examination - Vital Signs Vital Signs: Initial Vital Signs Temp Pulse Resp BP Pulse Ox 97.4 F L 92 18 157/80 98 10/11/18 15:18 10/11/18 15:18 10/11/18 15:18 10/11/18 15:18 10/11/18 15:18 - Exam Exam: General Examination: *CONSTITUTIONAL: normal, with the exception of a herpetiform rash involving the first division of the left trigeminal nerve. *EYES: pupils equal, round, reactive to light and accommodation, conjun ctiva clear without masses or ulcerations, fundi normal. *CARDIOVASCULAR no peripheral edema, distal temperature normal, dorsalis pedis pulses normal. Refer to vital signs Musculoskeletal: *GAIT AND STATION normal, with normal Romberg testing, no abnormalities such as broad base gait or spasticity *ASSESSMENT OF MUSCLE STRENGTH IN THE UPPER AND LOWER EXTREMITIES deltoid, bicep, tricep, manager treasury strength, hip flexors ,anterior tibialis, dorsoflexion of the foot normal. *MUSCLE TONE IN THE UPPER AND LOWER EXTREMITIES normal. No abnormal movements, fasciculations or atrophy identified. Neurological: *ORIENTATION to time and place *RECURRENT AND REMOTE MEMORY intact *ATTENTION AND CONCENTRATION are normal *LANGUAGE FUNCTION no significant aphasia or dysarthia was noted. *FUND OF KNOWLEDGE aware of current events, past history, vocabulary *MENTAL attention span and concentration normal. *CN II optic fundi were normal, no papilledema noted. *CN III,IV, PERRLA extraocular eye movements were full, no nystagmus and no ptosis noted. *CN V shows normal sensation and jaw opens symmetrically. Herpetiform rashes present however in the V1 distribution on the left. *CN VII shows normal facial movement symmetrically, upper and lower bilaterally. *CN VIII shows no significant hearing loss on examination in the office. *CN IX,,X palate elevated symmetrically and normal gag reflex was noted. *CN XI normal strength in the sternocleidomastoid muscles, symmetrical shoulder shrugging. *CN XII tongue protruded in the midline, with normal strength and movement. *SENSORY EXAMINATION pinprick sensation intact, and light touch(vibration sense). *REFLEXES: deep tendon reflexes were normal and symmetrical , grade 2/4 diffusely, no pathological reflexes were noted. *CEREBELLAR TESTING normal finger to nose, heel/knee/alford, and tandem walk. *PAIN LEVEL 3 Results - Laboratory Findings CBC and BMP: 10/12/18 06:26 10/12/18 06:26 Abnormal lab findings: Abnormal lab results RDW 15.1 % (11.5-14.5) H 10/12/18 06:26 PT 18.7 Seconds (9.4-12.1) H 10/12/18 06:26 Sodium 135 mEq/L (136-145) L 10/12/18 06:26 BUN 30 mg/dL (8-23) H 10/12/18 06:26 Creatinine 1.80 mg/dL (0.70-1.30) H 10/12/18 06:26 Est GFR ( Amer) 45 (> 60) L 10/12/18 06:26 Est GFR (Non-Af Amer) 37 (> 60) L 10/12/18 06:26 Glucose 143 mg/dL (70-105) H 10/12/18 06:26 POC Glucose 124 mg/dL (70-99) H 10/12/18 06:53 Total Bilirubin 3.3 mg/dL (0.3-1.0) H 10/12/18 06:26 Direct Bilirubin 1.0 mg/dL (0.0-0.2) H 10/11/18 16:14 Indirect Bilirubin 2.2 mg/dL (0.0-1.2) H 10/11/18 16:14 AST 55 Units/L (13-39) H 10/12/18 06:26 Alkaline Phosphatase 118 Units/L (34-104) H 10/12/18 06:26 Ammonia 67 mcmol/L (16-53) H 10/11/18 16:14 Troponin I 0.13 ng/mL (< 0.04) H* 10/12/18 06:26 Urine Clarity Cloudy (Clear) A 10/11/18 19:57 Urine Protein 30 mg/dL (Neg-Trace) H 10/11/18 19:57 Ur Leukocyte Esterase Moderate (Negative) H 10/11/18 19:57 Urine Microscopic WBC TNTC per hpf (0-3) H 10/11/18 19:57 Urine Bacteria Many per hpf (None-Few) H 10/11/18 19:57 Ur Culture Indicated? YES (NO) A 10/11/18 19:57 Consult Discharge Plan - Plan Referrals: Franny Stubbs, [employer] [Primary Care Provider] -
[2018-10-13] MEDS: Acyclovir 800 MG in D5% in Water 250 ML IVPB SCH ×4 (00:02→23:55)
[2018-10-13] MEDS: *HR* OxyCODONE Immed Rel 5 MG TABLET PO PRN ×2 (04:00→16:37)
[2018-10-13 05:38] LABS: Hematocrit 43.8 % (37.5-50.1); Hemoglobin 14.8 g/dL (12.9-16.9); Mean Corpuscular HGB Conc 33.8 g/dL (31.6-35.5); Mean Corpuscular Hemoglobin 32.5 pg (28.0-33.3); Mean Corpuscular Volume 96.1 fL (83.0-100.0); Mean Platelet Volume 10.6 fL (9.4-12.4); Platelet Count 162 K/mcL (140-400); Red Blood Count 4.56 M/mcL (4.19-5.50); Red Cell Distribution Width 14.5 % (11.5-14.5)
[2018-10-13 06:12] LABS: Alanine Aminotransferase 44 Units/L (7-52); Albumin 3.9 g/dL (3.5-5.7); Albumin/Globulin Ratio 1.1 (1.1-2.2); Alkaline Phosphatase 123 Units/L (34-104); Aspartate Amino Transferase 51 Units/L (13-39); BUN/Creatinine Ratio 21 (6-26); Bilirubin,Total 3.1 mg/dL (0.3-1.0); Blood Urea Nitrogen 28 mg/dL (8-23); Calcium 9.6 mg/dL (8.6-10.3); Carbon Dioxide 24 mEq/L (23-29); Chloride 99 mEq/L (98-107); Globulin 3.5 g/dL (2.4-3.5); Glucose 182 mg/dL (70-105); Osmolality,Calculated 284 (280-300); Potassium 4.1 mEq/L (3.5-5.1); Sodium 132 mEq/L (136-145); Total Protein 7.4 g/dL (6.4-8.9); eGFR For Non-African Americans 52 (> 60)
[2018-10-13] MEDS: Insulin LISPRO 300 UNITS/3 ML VIAL SQ SCH ×4 (07:52→20:48)
[2018-10-13] MEDS: cefTRIAXone 1,000 MG in 0.9 % Sodium Chloride Mini Bag 100 ML IVPB SCH (08:23)
[2018-10-13] MEDS: Metoprolol XL (24 HR) Succ 50 MG TAB.ER.24H PO SCH (08:23)
[2018-10-13] MEDS: Gabapentin 100 MG CAPSULE PO SCH ×3 (08:23→20:39)
[2018-10-13] MEDS: Apixaban 5 MG TABLET PO SCH ×2 (08:23→20:39)
[2018-10-13] MEDS: Aspirin 81 MG TAB.CHEW PO SCH (08:23)
[2018-10-13] MEDS: Erythromycin OPTH Oint LEFT EYE SCH ×3 (08:24→20:44)
[2018-10-13] MEDS: Lactulose Oral Soln 20 GM/30 ML UDC PO SCH ×2 (08:24→20:39)
--- NOTE | 2018-10-13 10:00 | Infectious Disease Consult ---
Date of Encounter: 10/13/18 Time of Encounter: 13:04 Assessment and Plan (1) Herpes zoster ophthalmicus Status: Acute Assessment and plan: Location: V1 dermatomal distribution. Not disseminated. No evidence of central nervous system infection at this time. Ophthalmology evaluation noted and appreciated. Currently on IV acyclovir. Recommendations: Discontinue acyclovir. Start Valtrex 1000 mg by mouth 3 times a day. Duration of treatment depends on the clinical picture, but likely a total of 7 days. Additional recreations per ophthalmology. Monitor renal function and dose adjust antivirals. (2) Headache Status: Acute Assessment and plan: Likely secondary to herpes zoster. Pain management per the primary team. Qualifiers: Headache type: unspecified Headache chronicity pattern: acute headache Intractability: intractable Qualified Code(s): R51 - Headache (3) Elevated troponin Status: Acute Assessment and plan: Further workup and management per the primary team. (4) Acute encephalopathy Status: Acute Assessment and plan: Likely secondary to infectious etiology and hyperammonemia Neurology consulted. They do not feel that this is secondary to a central nervous system infection. CT of the head was negative. No meningeal signs on admission per ER documentation. Appears resolved. Continue to monitor closely. (5) FRANCES (acute kidney injury) Status: Resolved Assessment and plan: Improved. Continue to trend. Avoid nephrotoxins and dose adjust antivirals. (6) Elevated LFTs Status: Acute Assessment and plan: Likely secondary to chronic liver cirrhosis. Abdominal exam benign. Right upper quadrant ultrasound showed findings concerning for cirrhosis, but no acute abnormality. Continue to trend. (7) Hyperammonemia Status: Acute Assessment and plan: Ammonia level elevated at 67. Management per the primary team. Continue to trend. (8) Atrial fibrillation Status: Chronic Qualifiers: Atrial fibrillation type: chronic Qualified Code(s): I48.2 - Chronic atrial fibrillation (9) PAD (peripheral artery disease) Status: Chronic (10) NEELIMA (obstructive sleep apnea) Status: Chronic (11) COPD (chronic obstructive pulmonary disease) Status: Chronic Qualifiers: COPD type: unspecified COPD Qualified Code(s): J44.9 - Chronic obstructive pulmonary disease, unspecified (12) CAD (coronary artery disease) Status: Chronic Qualifiers: Coronary Disease-Associated Artery/Lesion type: [place] artery [place] vs. transplanted heart: [place] heart Associated angina: without angina Qualified Code(s): I25.10 - Atherosclerotic heart disease of [place] coronary artery without angina pectoris (13) Cirrhosis Status: Acute Assessment and plan: MELD score 21. Qualifiers: Hepatic cirrhosis type: alcoholic cirrhosis Ascites presence: without ascites Qualified Code(s): K70.30 - Alcoholic cirrhosis of liver without ascites (14) Type 2 diabetes mellitus Status: Chronic Assessment and plan: Recommend strict glucose control. Management per the primary team. Qualifiers: Diabetes mellitus alf insulin use: with alf use Diabetes mellitus complication status: without complication Qualified Code(s): E11.9 - Type 2 diabetes mellitus without complications; Z79.4 - regional intermodal truck driver (current) use of insulin Infectious Disease HPI - Data of Consult Patient: new to practice Consult date: 10/13/18 Requesting Physician: Aracelis Woo MD Primary Care Provider: Franny Stubbs CNP - Consult Narrative Reason for consult: Herpes opthalmicus History of present illness: Mr. Romero is a 73 year old male with a past medical history of hypertension, hyperlipidemia, A. fib, liver cirrhosis, hyperammonemia, cardiomyopathy, CHF, CAD, diabetes, PAD status post lower extremity bypass and stenting. The patient was admitted to the hospital 10/11/18 for headache, hyperammonemia, and confusion. We are consult a 10/13/18 for further recommendations for herpes ophthalmic S. Briefly, the patient is a 73-year-old male with past medical history as stated above. The patient was admitted to the emergency department with complaints of headache and confusion ongoing for about a week. Upon arrival, the patient was afebrile and hemodynamically stable. Laboratory studies revealed a normal white blood cell count. Serum creatinine was mildly elevated at 1.68. Total bili was elevated at 3.2 with AST of 63, ALC of 47 and alkaline phosphatase of 137. Ammonia level was elevated at 67. Troponin was elevated at 0.11. Chest x-ray was negative. CT of the head was negative. Urinalysis was positive for pyuria, but the culture was negative. Flu antigen swab was negative as well. He was admitted to the hospital for further evaluation. Since admission, the patient has developed an erythematous rash to the left scalp, forehead and eye concerning for herpes ophthalmicus. He did spike a temp of 101.4 and became tachycardic. His white blood cell count has remained normal. His total bili remains elevated at 3. He underwent a right upper quadrant ultrasound that was significant for cirrhosis, but otherwise essentially negative. Ophthalmology has been consulted to assist with this he rpes ophthalmicus. Neurology was consulted to assist with his confusion who thought that it was likely secondary to an underlying infectious process, but not necessarily a central nervous system infection. Currently, the patient's on IV acyclovir and Rocephin. We have been asked to evaluate and make further recommendations. During my exam today, the patient endorses the history as stated above. 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 Denies fevers or chills or rigors. Reports some posterior headache and some neck pain that is chronic. Denies chest pain, shortness of breath, or cough. Denies nausea, vomiting, diarrhea, or constipation. Denies abdominal pain or urinary complaints. Denies any oral thrush or new skin lesions prior to admission. He does report new onset rash about 24 hours after presenting to the emergency department. He states the pain is improved, but still pretty severe. He denies any blurred vision or visual changes. The patient lives at home with his . He is retired from the [employer]. He has several dogs and cats at home. He denies any chronic infectious diseases. He denies any tobacco, alcohol, or illicit drug use currently. He does report heavy alcohol abuse previously. He denies any recent travel outside the [facility]. He does tell me he did receive the shingles vaccine. CC: Aracelis Woo MD Past Med Surg Social Fam HX - Past Medical History Attestation: Yes The following information was validated with the patient. Source: patient, old records reviewed, nursing notes reviewed Medical history: aortic aneurysm, arthritis, atrial fibrillation, cardiomy opathy, CHF, coronary artery disease, DVT, diabetes, GERD, hyperlipidemia, hypertension, myocardial infarction, peripheral artery disease, thyroid disease, other Additional medical history: SLEEP APNEA, ANXIETY, HYPOTHRYROID,RESTLESS LEG, PVD Psychiatric history: anxiety, depression - Past Surgical History Surgical History: angioplasty/stent, appendectomy, cholecystectomy, coronary bypass (CABG), LE Bypass, LE stent(s), LE vascular intervention, other Additional surgical history: heart stent x 3, holter monitor. - Social History Smoking Status: Never smoker Smokeless Tobacco Status: No Alcohol use: none Drug use: none Occupational status: retired Current living situation: Home, With Family Activity Level: Independent ambulation Recent Out of Country Travel Within the Last 8 Weeks: No Exposure or Possible Exposure to Illness During Travel: No - Family History Father Living Status: Hx Family Cardiac Disorders: Yes Hx Family Cancer: No Hx Family GI Disorders: No Hx Family Endocrine Disorder: Yes Mother Living Status: Hx Family Cardiac Disorders: No Hx Family Respiratory Disorders: No Hx Family Cancer: No Infectious Disease-CN:Meds RX: ALPRAZolam [Xanax 0.5 MG Tablet] 1 mg PO HS #0 09/18/15 [History] RX: Ascorbate Calcium [Vitamin C] 1,000 mg PO DAILY #0 09/18/15 [History] RX: Aspirin 81 mg PO DAILY #0 09/18/15 [History] RX: Docusate [Colace] 100 mg PO DAILY #0 09/18/15 [History] RX: Doxepin HCl 100 mg PO HS #0 09/18/15 [History] RX: Furosemide [Lasix] 40 mg PO TID #0 09/18/15 [History] RX: Multivit-Min/FA/Lycopen/Lutein [Adults 50+ Multivitamin Tablet] 1 tab PO DAILY #0 09/18/15 [History] RX: Potassium Chloride [K-Tab ER] 10 meq PO DAILY #0 09/18/15 [History] RX: Acetaminophen [Tylenol] 500 mg PO BID PRN 01/23/16 [History] RX: Nitroglycerin [Nitrostat] 0.4 mg SL Q5M PRN 01/23/16 [History] RX: Apixaban [Eliquis] 2.5 mg PO BID #90 tablet 01/26/16 [Rx] RX: Insulin Glargine,Hum.rec.anlog [Lantus Solostar] 66 unit SQ QAM 02/15/17 [History] RX: Loratadine [Allergy Relief] 10 mg PO BID 04/11/17 [History] RX: [place]-3/Dha/Epa/Fish Oil [Fish Oil 1,000 mg Softgel] 1,000 mg PO DAILY 04/11/17 [History] RX: Ferrous Sulfate [Iron] 325 mg PO BID 10/15/17 [History] RX: glipiZIDE [Glipizide] 10 mg PO BID 10/15/17 [History] RX: Carboxymethylcellulos/Glycerin [Refresh Optive Gel Eye Drops] 1 drop BOTH EYES QID PRN 06/27/18 [History] RX: Insulin Glargine,Hum.rec.anlog [Lantus Solostar] 28 unit SQ QPM 06/27/18 [History] RX: Levothyroxine Sodium 150 mcg PO QAM 06/27/18 [History] RX: Rosuvastatin Calcium [Crestor] 20 mg PO QPM 06/27/18 [History] Baclofen [Lioresal] 10 mg PO TID PRN 09/23/18 [History] Metoprolol Succinate [Toprol Xl] 50 mg PO DAILY 09/23/18 [History] RX: Pantoprazole Sodium 40 mg PO BID 09/23/18 [History] RX: Isosorbide MONOnitrate [Isosorbide Mononitrate ER] 120 mg PO DAILY 10/11/18 [History] RX: Lactulose 15 ml PO TID 10/11/18 [History] Allergy/AdvReac Type Severity Reaction Status Date / Time tamsulosin Allergy Rash Verified 08/14/18 14:24 Penicillins AdvReac Mild Anaphylaxis Verified 08/14/18 14:24 All systems: reviewed and no additional remarkable complaints except as stated Exam - Constitutional Vitals: Temp Pulse Resp BP Pulse Ox 99 F 104 16 175/95 98 10/13/18 07:51 10/13/18 07:51 10/13/18 07:51 10/13/18 07:51 10/13/18 07:51 General appearance: cooperative, no acute distress, obese - Head Head exam: Present: normocephalic. Absent: atraumatic, normal inspection Additional comments: Vesicular lesions in the left parietal and left frontal scalp - Eye Eye exam: Present: EOMI, PERRL. Absent: normal appearance (Vesicular lesions noted to the left upper eyelid. No conjunctival injection noted.) Pupils: Present: normal accommodation - ENT ENT exam: Present: mucous membranes moist - Neck Neck exam: Present: normal inspection. Absent: meningismus - Respiratory Respiratory exam: Present: CTAB. Absent: rales, respiratory distress, rhonchi, wheezes - Cardiovascular Cardiovascular exam: Present: irregular rhythm, +S1, +S2. Absent: tachycardia - GI/Abdominal GI/Abdominal exam: Present: distended (Obese), normal bowel sounds, soft. Absent: tenderness - Extremities Exam Extremities exam: Present: normal inspection. Absent: joint swelling, pedal edema, tenderness - Back Exam Back exam: Present: normal inspection. Absent: paraspinal tenderness, vertebral tenderness - Neurological Exam Neurological exam: Present: alert, oriented X3, no focal deficits - Psychiatric Psychiatric exam: Present: normal affect, normal mood - Skin Skin exam: Present: dry, intact, normal color, vesicles (Left frontal and left parietal scalp.), warm Infectious Disease CN: Results - Labs CBC & Chem 7: 10/13/18 05:19 10/13/18 05:19 Cultures: Cultures 10/11/18 19:57 Urine Culture - Final Urine,Clean Catch No significant growth. 10/11/18 18:35 Influenza Types A,B Antigen - Final Nasopharyngeal Serology: Serology 10/11/18 Range/Units 19:57 Urine Color Dark Yellow (Yellow) Urine Clarity Cloudy A (Clear) Urine pH 6.0 (5.0-8.0) pH Units Ur Specific [place] 1.013 (1.010-1.025) Urine Protein 30 H (Neg-Trace) mg/dL Urine Glucose (UA) Normal (Normal) mg/dL Urine Ketones Negative (Negative) mg/dL Urine Blood Negative (Negative) Urine Nitrite Negative (Negative) Urine Bilirubin Negative (Negative) Urine Urobilinogen Normal (Normal) mg/dL Ur Leukocyte Esterase Moderate H (Negative) Urine Microscopic RBC 0-3 (0-3) per hpf Urine Microscopic WBC TNTC H (0-3) per hpf Ur Squamous Epith Cells Few (None-Few) per lpf Urine Bacteria Many H (None-Few) per hpf Hyaline Casts Few (None-Few) per lpf Ur Culture Indicated? YES A (NO) Consult Discharge Plan - Plan Referrals: Franny Stubbs DIRECT MARKETING SPECIALIST [Primary Care Provider] - - Attending Attestation I have personally performed a face to face evaluation on this patient. I have reviewed and agree with the care plan. History and Exam by me shows: Assessment and plan: 1. Herpes ophthalmicusV1 distribution. Non-disseminated. Does not appear to involve the eye. Appreciate ophthalmology's evaluation 2. EtOH abuse with liver cirrhosis 3. Acute encephalopathy likely secondary to hepatic encephalopathy with hyperammonia 4. Acute kidney injury improved Recommendations: Discontinue acyclovir. Start Valtrex 1000 mg by mouth 3 times a day. Duration of treatment depends on the clinical picture, but likely a total of 7 days. Additional recreations per ophthalmology. Monitor renal function and dose adjust antivirals.
--- NOTE | 2018-10-13 10:51 | Internal Med Progress Note ---
Hospitalist Progress Note - Encounter Date of Encounter: 10/13/18 Time of Encounter: 10:48 - Subjective Interval History: n - Exam Vitals: Temp Pulse Resp BP Pulse Ox 99 F 104 16 175/95 98 10/13/18 07:51 10/13/18 07:51 10/13/18 07:51 10/13/18 07:51 10/13/18 07:51 Exam: Gen: NAD, AAO x3 ENT: MMM head: NC/AT CVS: RRR Lungs: CTAB Ext: warm, dry, trace bipedal edema Skin: rash on left upper face on scalp in left eye region extending posteriorly. - Assessment and Plan (1) Herpes zoster ophthalmicus Current Visit: Yes Status: Acute Assessment and Plan: Continue IV Acyclovir Continue Steroids. Monitor renal function (2) Acute encephalopathy Current Visit: Yes Status: Acute Assessment and Plan: baseline mentation alert and oriented with occasional forgetfulness. Now with increased confusion per . Alert and oriented to person and place at time of exam. Unable to give details that led to his hospitalization. Neurologically intact. No focal deficits. Suspect multifactorial with hospital shingles, worsening renal failure and possible UTI. Continue lactulose. Does not appear altered today. (3) Acute renal failure superimposed on chronic kidney disease Current Visit: Yes Status: Acute Assessment and Plan: Baseline 1.5 On admission 1.6, but slightly worsening today at 1.8. Hold nephrotoxic agents. Continue gentle IV fluid hydration. Has HF so will be done with caution. Recheck BMP in AM. (4) Elevated troponin Current Visit: No Status: Acute Assessment and Plan: serial troponin 0.11, 0.13, 0.13. Asymptomatic. Denied chest pain. EKG witho ut acute ST changes. Possibly secondary to worsening renal function. Repeat 1 more troponin and if remains elevated or trending up consider cardiology consultation. Monitor on telemetry (5) Chronic kidney disease Current Visit: No Status: Chronic Assessment and Plan: Has known kidney disease. Now with acute on chronic kidney disease. Cr 1.8; slightly worse than baseline. Start cont IV fluids. Avoid nephrotoxic agents as possible. If no improvement with IV fluids consult nephrology (6) Atrial fibrillation Current Visit: No Status: Chronic Assessment and Plan: per hx. Rate controlled. Cont home maki WEBB (7) DVT prophylaxis Current Visit: No Status: Acute Assessment and Plan: maki (8) Hypothyroidism Current Visit: No Status: Acute Assessment and Plan: per hx. Cont home levothyroxine. (9) CAD (coronary artery disease) Current Visit: No Status: Chronic Assessment and Plan: per hx. 02/2017 [facility] with mLCx 50%. LMCA 40%, pLAD 40%, mLAD 100%, pRCA 100%, OBANDO-mLAD patent, SVG-RPDA patent, SVG-Ramus occluded. 06/22 TTE with EF 45% and known mild I CMP. UA did by cardiology to and medical therapy recommended. Cont home cardiac medications. (10) Shingles Current Visit: Yes Status: Acute Assessment and Plan: suspected with nonvascular rash to left forehead/scalp extending toward eyelid. Symptomatic with headache, exquisite pain and blurred vision. Change acyclovir to IV. Give prednisone 60 mg PO X 1 now. Low dose gabapentin for pain/headache. Closely monitor neurological/ophthalmological status. Neurology, ID and Ophthalmology consulted - Time Spent with Patient Total time spent is greater than 50% in coordination of care (as documented) at patient's floor/unit and/or counseling patient: Internal Medicine: Result - Labs CBC & Chem 7: 10/13/18 05:19 10/13/18 05:19 Labs: Short CBC 10/13/18 Range/Units 05:19 WBC 8.6 (4.3-11.1) K/mcL Hgb 14.8 (12.9-16.9) g/dL Hct 43.8 (37.5-50.1) % Plt Count 162 (140-400) K/mcL BMP 10/13/18 05:19 Sodium 132 L Potassium 4.1 Chloride 99 Carbon Dioxide 24 BUN 28 H Creatinine 1.35 H Glucose 182 H Calcium 9.6 Cardiac Enzymes 10/13/18 Range/Units 05:19 Troponin I 0.13 H* (< 0.04) ng/mL Liver Function 10/13/18 Range/Units 05:19 Total Bilirubin 3.1 H (0.3-1.0) mg/dL AST 51 H (13-39) Units/L ALT 44 (7-52) Units/L Alkaline Phosphatase 123 H (34-104) Units/L Albumin 3.9 (3.5-5.7) g/dL - ABG Interpretation ABG results: PT/INR, D-dimer PT 18.7 Seconds (9.4-12.1) H 10/12/18 06:26 - Impressions Impressions Abdomen Ultrasound 10/13/18 09:00 IMPRESSION: Mild hepatic morphologic features which can be associated with cirrhosis but are nonspecific. Hepatic steatosis. Otherwise unremarkable right upper quadrant ultrasound status post cholecystectomy. D/ / Ayush Chan / Ayush Chan Interpreting Provider: Ayush Chan Consult Discharge Plan - Plan Referrals: Franny Stubbs, FINGERPRINT EXPERT [Primary Care Provider] - (5) Chronic kidney disease Qualifiers: Chronic kidney disease stage: stage 4 (severe) Qualified Code(s): N18.4 - Chronic kidney disease, stage 4 (severe) (6) Atrial fibrillation Qualifiers: Atrial fibrillation type: chronic Qualified Code(s): I48.2 - Chronic atrial fibrillation (8) Hypothyroidism Qualifiers: Hypothyroidism type: unspecified Qualified Code(s): E03.9 - Hypothyroidism, unspecified (9) CAD (coronary artery disease) Qualifiers: Coronary Disease-Associated Artery/Lesion type: [place] artery [place] vs. transplanted heart: [place] heart Associated angina: without angina Qualified Code(s): I25.10 - Atherosclerotic heart disease of [place] coronary artery without angina pectoris
--- NOTE | 2018-10-13 22:00 | Electrocardiograph Report ---
[address] [place] [address] Test Date: 2018-10-11 Pat Name: Cristofer Romero Department: [id number] Room: 2A44 Gender: M Spent Grain [employer]er: : 1945 Requested By: Miguel Angel Yee Order Number: [id number] Reading MD: Hawa Jama Measurements Intervals [place] Rate: 97 P: MO: QRS: 102 QRSD: 116 T: 263 QT: 364 QTc: 418 Interpretive Statements Atrial fibrillation with PVCs Right axis deviation Repol abnrm, severe global ischemia Electronically Signed On 10-13-2018 21:59:01 EDT by Hawa Jama
[2018-10-14 06:07] LABS: BUN/Creatinine Ratio 18 (6-26); Blood Urea Nitrogen 24 mg/dL (8-23); Calcium 9.1 mg/dL (8.6-10.3); Carbon Dioxide 23 mEq/L (23-29); Chloride 98 mEq/L (98-107); Glucose 170 mg/dL (70-105); Osmolality,Calculated 282 (280-300); Sodium 132 mEq/L (136-145); eGFR For Non-African Americans 54 (> 60)
[2018-10-14] MEDS ORDERED: cefTRIAXone 1,000 MG in Water for inj. (sterile) 20 ML 10 ML IVP SCH (09:00)
--- NOTE | 2018-10-14 09:26 | Infectious Disease Progress No ---
Date of Encounter: 10/14/18 Time of Encounter: 08:40 - Assessment and Plan (1) Herpes zoster ophthalmicus Current Visit: Yes Status: Acute Location: V1 dermatomal distribution. Not disseminated. No evidence of central nervous system infection at this time. Ophthalmology evaluation noted and appreciated. Currently on IV acyclovir. Recommendations: Discontinue Rocephin. Discontinue acyclovir. Start Valtrex 1000 mg by mouth 3 times a day. (day 3 of treatment) Duration of treatment depends on the clinical picture, but likely a total of 7 days. Additional recommendations per ophthalmology. Monitor renal function and dose adjust antivirals. (2) Headache Current Visit: Yes Status: Acute Likely secondary to herpes zoster. Resolved. Pain management per the primary team. Qualifiers: Headache type: unspecified Headache chronicity pattern: acute headache Intractability: intractable Qualified Code(s): R51 - Headache (3) Elevated troponin Current Visit: No Status: Acute Further workup and management per the primary team. (4) Acute encephalopathy Current Visit: Yes Status: Acute Likely secondary to infectious etiology and hyperammonemia Neurology consulted. They do not feel that this is secondary to a central nervous system infection. CT of the head was negative. No meningeal signs on admission per ER documentation. Appears resolved. Continue to monitor closely. (5) Elevated LFTs Current Visit: No Status: Acute Likely secondary to chronic liver cirrhosis. Abdominal exam benign. Right upper quadrant ultrasound showed findings concerning for cirrhosis, but no acute abnormality. Continue to trend. (6) Hyperammonemia Current Visit: Yes Status: Acute Ammonia level elevated at 67. Management per the primary team. Continue to trend. (7) Atrial fibrillation Current Visit: No Status: Chronic Qualifiers: Atrial fibrillation type: chronic Qualified Code(s): I48.2 - Chronic atrial fibrillation (8) PAD (peripheral artery disease) Current Visit: No Status: Chronic (9) NEELIMA (obstructive sleep apnea) Current Visit: No Status: Chronic (10) COPD (chronic obstructive pulmonary disease) Current Visit: No Status: Chronic Qualifiers: COPD type: unspecified COPD Qualified Code(s): J44.9 - Chronic obstructive pulmonary disease, unspecified (11) CAD (coronary artery disease) Current Visit: No Status: Chronic Qualifiers: Coronary Disease-Associated Artery/Lesion type: [place] artery [place] vs. transplanted heart: [place] heart Associated angina: without angina Qualified Code(s): I25.10 - Atherosclerotic heart disease of [place] coronary artery without angina pectoris (12) Cirrhosis Current Visit: No Status: Acute MELD score 21. Qualifiers: Hepatic cirrhosis type: alcoholic cirrhosis Ascites presence: without ascites Qualified Code(s): K70.30 - Alcoholic cirrhosis of liver without ascites (13) Type 2 diabetes mellitus Current Visit: No Status: Chronic Recommend strict glucose control. Management per the primary team. Qualifiers: Diabetes mellitus watermaster insulin use: with penitentiary use Diabetes mellitus complication status: without complication Qualified Code(s): E11.9 - Type 2 diabetes mellitus without complications; Z79.4 - detention (current) use of insulin - Subjective Interval history: Patient seen and examined. No acute events noted overnight. The patient states overall he feels better today. Denies headache or visual changes. Denies fevers or chills or rigors. Denies chest pain, shortness of breath, or cough. States she is very tired and not getting much rest. Denies nausea, vomiting, diarrhea, constipation. Denies abdominal pain or urinary complaints. Denies any oral thrush or new skin lesions. Infect Dis PN-Objective Data - Labs CBC & Chem 7: 10/13/18 05:19 10/14/18 05:33 Labs: Laboratory Results - last 24 hr 10/13/18 10/13/18 10/13/18 11:07 16:42 19:31 Sodium Potassium Chloride Carbon Dioxide BUN Creatinine Est GFR ( Amer) Est GFR (Non-Af Amer) BUN/Creatinine Ratio Glucose POC Glucose 221 H 160 H 223 H Calculated Osmolality Calcium 10/14/18 05:33 Sodium 132 L Potassium 4.0 Chloride 98 Carbon Dioxide 23 BUN 24 H Creatinine 1.31 H Est GFR ( Amer) > 60 Est GFR (Non-Af Amer) 54 L BUN/Creatinine Ratio 18 Glucose 170 H POC Glucose Calculated Osmolality 282 Calcium 9.1 Cultures: Cultures 10/11/18 19:57 Urine Culture - Final Urine,Clean Catch No significant growth. 10/11/18 18:35 Influenza Types A,B Antigen - Final Nasopharyngeal Serology 10/11/18 Range/Units 19:57 Urine Color Dark Yellow (Yellow) Urine Clarity Cloudy A (Clear) Urine pH 6.0 (5.0-8.0) pH Units Ur Specific [place] 1.013 (1.010-1.025) Urine Protein 30 H (Neg-Trace) mg/dL Urine Glucose (UA) Normal (Normal) mg/dL Urine Ketones Negative (Negative) mg/dL Urine Blood Negative (Negative) Urine Nitrite Negative (Negative) Urine Bilirubin Negative (Negative) Urine Urobilinogen Normal (Normal) mg/dL Ur Leukocyte Esterase Moderate H (Negative) Urine Microscopic RBC 0-3 (0-3) per hpf Urine Microscopic WBC TNTC H (0-3) per hpf Ur Squamous Epith Cells Few (None-Few) per lpf Urine Bacteria Many H (None-Few) per hpf Hyaline Casts Few (None-Few) per lpf Ur Culture Indicated? YES A (NO) - Impressions Impressions Abdomen Ultrasound 10/13/18 09:00 IMPRESSION: Mild hepatic morphologic features which can be associated with cirrhosis but are nonspecific. Hepatic steatosis. Otherwise unremarkable right upper quadrant ultrasound status post cholecystectomy. D/ / Ayush Chan / Ayush Chan Interpreting Provider: Ayush Chan Exam - Constitutional Vitals: Temp Pulse Resp BP Pulse Ox 98.8 F 94 18 163/86 94 10/14/18 06:52 10/14/18 06:52 10/14/18 06:52 10/14/18 06:52 10/14/18 06:52 General appearance: cooperative, no acute distress, obese - Head Head exam: Present: atraumatic, normocephalic. Absent: normal inspection (Vesicular rash noted to the left frontal and parietal scalp, improved and dry.) - Eye Eye exam: Present: EOMI, normal appearance, PERRL Pupils: Present: normal accommodation - ENT ENT exam: Present: mucous membranes moist - Neck Neck exam: Present: normal inspection - Respiratory Respiratory exam: Present: CTAB. Absent: rales, respiratory distress, rhonchi, wheezes - Cardiovascular Cardiovascular exam: Present: irregular rhythm, RRR, +S1, +S2. Absent: tachycardia - GI/Abdominal GI/Abdominal exam: Present: distended (Obese), normal bowel sounds, soft. Absent: tenderness - Extremities Exam Extremities exam: Present: normal inspection. Absent: joint swelling, pedal edema, tenderness - Neurological Exam Neurological exam: Present: alert, oriented X3, no focal deficits - Psychiatric Psychiatric exam: Present: normal affect, normal mood - Skin Skin exam: Present: dry, intact, normal color, warm Consult Discharge Plan - Plan Referrals: Franny Stubbs CNP [Primary Care Provider] - - Attending Attestation I have personally performed a face to face evaluation on this patient. I have reviewed and agree with the care plan. History and Exam by me shows: Location: V1 dermatomal distribution. Not disseminated. No evidence of central nervous system infection at this time. Ophthalmology evaluation noted and appreciated. Currently on IV acyclovir. Recommendations: Discontinue Rocephin. Discontinue acyclovir. Start Valtrex 1000 mg by mouth 3 times a day. (day 3 of treatment) Duration of treatment depends on the clinical picture, but likely a total of 7 days. Additional recommendations per ophthalmology. Monitor renal function and dose adjust antivirals.
[2018-10-14] MEDS: Aspirin 81 MG TAB.CHEW PO SCH (10:51)
[2018-10-14] MEDS: Gabapentin 100 MG CAPSULE PO SCH ×3 (10:51→21:29)
[2018-10-14] MEDS: Lactulose Oral Soln 20 GM/30 ML UDC PO SCH ×2 (10:51→21:29)
[2018-10-14] MEDS: Metoprolol XL (24 HR) Succ 50 MG TAB.ER.24H PO SCH (10:51)
[2018-10-14] MEDS: Apixaban 5 MG TABLET PO SCH ×3 (10:51→21:29)
[2018-10-14] MEDS: Insulin LISPRO 300 UNITS/3 ML VIAL SQ SCH ×4 (10:53→21:30)
[2018-10-14] MEDS: Erythromycin OPTH Oint LEFT EYE SCH ×3 (10:54→21:30)
[2018-10-14] MEDS: valACYclovir 500 MG TABLET PO SCH ×3 (12:24→21:29)
--- NOTE | 2018-10-14 23:44 | Internal Med Progress Note ---
Hospitalist Progress Note - Encounter Date of Encounter: 10/14/18 Time of Encounter: 19:00 - Subjective Interval History: SUBJECTIVE: The patient feels progressively better. His confusion nearly subsided. Headache is gone. Skin lesions on the left side of his scalp are decreasing in intensity (suspected to be shingles). Denies chest pain and difficulty breathing. Denies abdominal pain, nausea and vomiting. He makes good amounts of urine. OBJECTIVE: Skin: Free of rash and discoloration. On the left side of his scalp one can see shingles-like lesions. ENMT: Oral/pharyngeal mucosa is normal in appearance. Eyes: Sclera is white. There is no discharge from eyes. Respiratory: Normal breath sounds; no crackles or wheezes. CV: Heart is regular; no gallop or murmur. GI: Abdomen is soft and not tender. There is no palpable mass or visceromegaly. Neuro: There is no focal deficits. ADDITIONAL DATA: Electrolytes are normal. Creatinine is 1.31; 1.68 at admission and 1.51 on 06/26/18. ASSESSMENT AND PLAN: Acute encephalopathy. Resolving. He has underlying liver cirrhosis. Ammonia at admission was 67. His altered mental status at admission was likely combination of hepatic and infectious (shingles) etiology. Shingles. See notes from infectious diseases. IV acyclovir he is sexually treated by oral Valtrex. Acute renal failure superimposed on chronic kidney disease (CKD stage III). Basically subsided. Mildly elevated troponin. Leveled. Likely secondary to underlying atrial fibrillation. DISPOSITION: I requested physical therapy for evaluation and treatment. - Exam Vitals: Temp Pulse Resp BP Pulse Ox 98.8 F 93 17 150/60 96 10/14/18 19:06 10/14/18 19:06 10/14/18 19:06 10/14/18 19:06 10/14/18 19:06 Exam: xx - Assessment and Plan (1) Acute encephalopathy Current Visit: Yes Status: Acute (2) Shingles Current Visit: Yes Status: Acute (3) Herpes zoster ophthalmicus Current Visit: Yes Status: Acute (4) Acute renal failure superimposed on chronic kidney disease Current Visit: Yes Status: Acute (5) Elevated troponin Current Visit: No Status: Acute (6) Atrial fibrillation Current Visit: No Status: Chronic (7) CAD (coronary artery disease) Current Visit: No Status: Chronic (8) Hypothyroidism Current Visit: No Status: Acute - Time Spent with Patient Total time spent is greater than 50% in coordination of care (as documented) at patient's floor/unit and/or counseling patient: 25 - 35 minutes Plan of Care Discussed with: patient Internal Medicine: Result - Labs CBC & Chem 7: 10/13/18 05:19 10/14/18 05:33 Labs: BMP 10/14/18 05:33 Sodium 132 L Potassium 4.0 Chloride 98 Carbon Dioxide 23 BUN 24 H Creatinine 1.31 H Glucose 170 H Calcium 9.1 - ABG Interpretation ABG results: PT/INR, D-dimer PT 18.7 Seconds (9.4-12.1) H 10/12/18 06:26 Consult Discharge Plan - Plan Referrals: Franny Stubbs CNP [Primary Care Provider] - (6) Atrial fibrillation Qualifiers: Atrial fibrillation type: chronic Qualified Code(s): I48.2 - Chronic atrial fibrillation (7) CAD (coronary artery disease) Qualifiers: Coronary Disease-Associated Artery/Lesion type: [place] artery [place] vs. transplanted heart: [place] heart Associated angina: without angina Qualified Code(s): I25.10 - Atherosclerotic heart disease of [place] coronary artery without angina pectoris (8) Hypothyroidism Qualifiers: Hypothyroidism type: unspecified Qualified Code(s): E03.9 - Hypothyroidism, unspecified
[2018-10-15] MEDS: Insulin LISPRO 300 UNITS/3 ML VIAL SQ SCH ×4 (09:02→21:29)
[2018-10-15] MEDS: valACYclovir 500 MG TABLET PO SCH ×3 (10:07→21:28)
[2018-10-15] MEDS: Gabapentin 100 MG CAPSULE PO SCH ×3 (10:08→21:28)
[2018-10-15] MEDS: Lactulose Oral Soln 20 GM/30 ML UDC PO SCH ×2 (10:08→21:30)
[2018-10-15] MEDS: Metoprolol XL (24 HR) Succ 50 MG TAB.ER.24H PO SCH (10:08)
[2018-10-15] MEDS: Aspirin 81 MG TAB.CHEW PO SCH (10:08)
[2018-10-15] MEDS: Apixaban 5 MG TABLET PO SCH ×2 (10:08→21:29)
[2018-10-15] MEDS: Erythromycin OPTH Oint LEFT EYE SCH ×3 (10:09→21:30)
--- NOTE | 2018-10-15 11:55 | Infectious Disease Progress No ---
Date of Encounter: 10/15/18 Time of Encounter: 11:00 - Subjective Interval history: The patient was seen and examined, sitting in bed this morning. No acute events over night and patient has no acute complaints. He admits the last episode of pain was intermittent, 3 days ago that has overall improved. He denies headache, nausea, chest pain, cough, abdominal pain, vomiting, diarrhea, photophobia. Infect Dis PN-Objective Data - Labs CBC & Chem 7: 10/13/18 05:19 10/14/18 05:33 Labs: Laboratory Results - last 24 hr 10/14/18 10/14/18 16:06 19:49 POC Glucose 141 H 196 H Cultures: Cultures 10/11/18 19:57 Urine Culture - Final Urine,Clean Catch No significant growth. 10/11/18 18:35 Influenza Types A,B Antigen - Final Nasopharyngeal Serology 10/11/18 Range/Units 19:57 Urine Color Dark Yellow (Yellow) Urine Clarity Cloudy A (Clear) Urine pH 6.0 (5.0-8.0) pH Units Ur Specific [place] 1.013 (1.010-1.025) Urine Protein 30 H (Neg-Trace) mg/dL Urine Glucose (UA) Normal (Normal) mg/dL Urine Ketones Negative (Negative) mg/dL Urine Blood Negative (Negative) Urine Nitrite Negative (Negative) Urine Bilirubin Negative (Negative) Urine Urobilinogen Normal (Normal) mg/dL Ur Leukocyte Esterase Moderate H (Negative) Urine Microscopic RBC 0-3 (0-3) per hpf Urine Microscopic WBC TNTC H (0-3) per hpf Ur Squamous Epith Cells Few (None-Few) per lpf Urine Bacteria Many H (None-Few) per hpf Hyaline Casts Few (None-Few) per lpf Ur Culture Indicated? YES A (NO) Exam - Constitutional Vitals: Temp Pulse Resp BP Pulse Ox 99.0 F 68 15 139/87 95 10/15/18 11:44 10/15/18 11:44 10/15/18 11:44 10/15/18 11:44 10/15/18 11:44 Consult Discharge Plan - Plan Referrals: Franny Stubbs, HAZMAT TANKER DRIVER [Primary Care Provider] -
--- NOTE | 2018-10-15 12:47 | Infectious Disease Progress No ---
Date of Encounter: 10/15/18 Time of Encounter: 12:46 - Assessment and Plan (1) Herpes zoster ophthalmicus Current Visit: Yes Status: Acute Location: V1 dermatomal distribution. Not disseminated. No evidence of central nervous system infection at this time. Ophthalmology evaluation noted and appreciated. Currently on IV acyclovir. Recommendations: Discontinue Rocephin. Discontinue acyclovir. Start Valtrex 1000 mg by mouth 3 times a day. (day 3 of treatment) Duration of treatment depends on the clinical picture, but likely a total of 7 days. Additional recommendations per ophthalmology. Monitor renal function and dose adjust antivirals. (2) Headache Current Visit: Yes Status: Acute Likely secondary to herpes zoster. Resolved. Pain management per the primary team. Qualifiers: Headache type: unspecified Headache chronicity pattern: acute headache Intractability: intractable Qualified Code(s): R51 - Headache (3) Elevated troponin Current Visit: No Status: Acute Further workup and management per the primary team. (4) Acute encephalopathy Current Visit: Yes Status: Acute Likely secondary to infectious etiology and hyperammonemia Neurology consulted. They do not feel that this is secondary to a central nervous system infection. CT of the head was negative. No meningeal signs on admission per ER documentation. Appears resolved. Continue to monitor closely. (5) Elevated LFTs Current Visit: No Status: Acute Likely secondary to chronic liver cirrhosis. Abdominal exam benign. Right upper quadrant ultrasound showed findings concerning for cirrhosis, but no acute abnormality. Continue to trend. (6) Hyperammonemia Current Visit: Yes Status: Acute Ammonia level elevated at 67. Management per the primary team. Continue to trend. (7) Atrial fibrillation Current Visit: No Status: Chronic Qualifiers: Atrial fibrillation type: chronic Qualified Code(s): I48.2 - Chronic atrial fibrillation (8) PAD (peripheral artery disease) Current Visit: No Status: Chronic (9) NEELIMA (obstructive sleep apnea) Current Visit: No Status: Chronic (10) COPD (chronic obstructive pulmonary disease) Current Visit: No Status: Chronic Qualifiers: COPD type: unspecified COPD Qualified Code(s): J44.9 - Chronic obstructive pulmonary disease, unspecified (11) CAD (coronary artery disease) Current Visit: No Status: Chronic Qualifiers: Coronary Disease-Associated Artery/Lesion type: [place] artery [place] vs. transplanted heart: [place] heart Associated angina: without angina Qualified Code(s): I25.10 - Atherosclerotic heart disease of [place] coronary artery without angina pectoris (12) Cirrhosis Current Visit: No Status: Acute MELD score 21. Qualifiers: Hepatic cirrhosis type: alcoholic cirrhosis Ascites presence: without ascites Qualified Code(s): K70.30 - Alcoholic cirrhosis of liver without ascites (13) Type 2 diabetes mellitus Current Visit: No Status: Chronic Recommend strict glucose control. Management per the primary team. Qualifiers: Diabetes mellitus terminal gauger supervisor insulin use: with residential use Diabetes mellitus complication status: without complication Qualified Code(s): E11.9 - Type 2 diabetes mellitus without complications; Z79.4 - longterm (current) use of insulin - Subjective Interval history: Patient seen and examined. doing well clinically no headache, no visual changes. no confusion. had yesterday no diarrhea no urinary symptoms Infect Dis PN-Objective Data - Labs CBC & Chem 7: 10/13/18 05:19 10/14/18 05:33 Labs: Laboratory Results - last 24 hr 10/14/18 10/14/18 16:06 19:49 POC Glucose 141 H 196 H Cultures: Cultures 10/11/18 19:57 Urine Culture - Final Urine,Clean Catch No significant growth. 10/11/18 18:35 Influenza Types A,B Antigen - Final Nasopharyngeal Serology 10/11/18 Range/Units 19:57 Urine Color Dark Yellow (Yellow) Urine Clarity Cloudy A (Clear) Urine pH 6.0 (5.0-8.0) pH Units Ur Specific [place] 1.013 (1.010-1.025) Urine Protein 30 H (Neg-Trace) mg/dL Urine Glucose (UA) Normal (Normal) mg/dL Urine Ketones Negative (Negative) mg/dL Urine Blood Negative (Negative) Urine Nitrite Negative (Negative) Urine Bilirubin Negative (Negative) Urine Urobilinogen Normal (Normal) mg/dL Ur Leukocyte Esterase Moderate H (Negative) Urine Microscopic RBC 0-3 (0-3) per hpf Urine Microscopic WBC TNTC H (0-3) per hpf Ur Squamous Epith Cells Few (None-Few) per lpf Urine Bacteria Many H (None-Few) per hpf Hyaline Casts Few (None-Few) per lpf Ur Culture Indicated? YES A (NO) Exam - Constitutional Vitals: Temp Pulse Resp BP Pulse Ox 99.0 F 68 15 139/87 95 10/15/18 11:44 10/15/18 11:44 10/15/18 11:44 10/15/18 11:44 10/15/18 11:44 General appearance: no acute distress, no febrile - Eye Eye exam: Present: EOMI, PERRL, sclera anicteric - Neck Neck exam: Present: full ROM. Absent: meningismus - Cardiovascular Cardiovascular exam: Present: RRR, +S1, +S2 - GI/Abdominal GI/Abdominal exam: Present: soft. Absent: tenderness - Skin Additional comments: dermatomal rash left V1 much improved almost resolved Consult Discharge Plan - Plan Referrals: Franny Stubbs, [employer] HA[employer] OR FARM CHARTER BUS DRIVER [Primary Care Provider] -
[2018-10-15] MEDS: Acyclovir 800 MG in D5% in Water 250 ML IVPB SCH (13:09)
--- NOTE | 2018-10-16 00:55 | Internal Med Progress Note ---
Hospitalist Progress Note - Encounter Date of Encounter: 10/15/18 Time of Encounter: 19:00 - Subjective Interval History: SUBJECTIVE: The patient feels progressively better. His confusion nearly subsided. Headache is gone. Skin lesions on the left side of his scalp are decreasing in intensity (suspected to be shingles). No chest pain/dyspnea. No abdominal pain, nausea and vomiting. He has normal urination. OBJECTIVE: Skin: Free of rash and discoloration. On the left side of his scalp one can see shingles-like lesions. ENMT: Oral/pharyngeal mucosa is normal in appearance. Eyes: Sclera is white. There is no discharge from eyes. Respiratory: Normal breath sounds; no crackles or wheezes. CV: Heart is regular; no gallop or murmur. GI: Abdomen is soft and not tender. There is no palpable mass or visceromegaly. Neuro: There is no focal deficits. ADDITIONAL DATA (from yesterday): Electrolytes are normal. Creatinine is 1.31; 1.68 at admission and 1.51 on 06/26/18. ASSESSMENT AND PLAN: Acute encephalopathy. Resolving. He has underlying liver cirrhosis. Ammonia at admission was 67. His altered mental status at admission was likely co mbination of hepatic and infectious (shingles) etiology. I am ordering CBC, BMP, hepatic panel and ammonia level. Shingles. See notes from infectious diseases. IV acyclovir he is sexually treated by oral Valtrex. Acute renal failure superimposed on chronic kidney disease (CKD stage III). Basically subsided. Mildly elevated troponin. Leveled. Likely secondary to underlying atrial fibrillation. DISPOSITION: A referral has been made to [facility]. - Exam Vitals: Temp Pulse Resp BP Pulse Ox 98.6 F 87 16 175/68 98 10/16/18 00:03 10/16/18 00:03 10/16/18 00:03 10/16/18 00:03 10/16/18 00:03 Exam: xx - Assessment and Plan (1) Acute encephalopathy Current Visit: Yes Status: Acute (2) Shingles Current Visit: Yes Status: Acute (3) Herpes zoster ophthalmicus Current Visit: Yes Status: Acute (4) Acute renal failure superimposed on chronic kidney disease Current Visit: Yes Status: Acute (5) Elevated troponin Current Visit: No Status: Acute (6) Atrial fibrillation Current Visit: No Status: Chronic (7) CAD (coronary artery disease) Current Visit: No Status: Chronic (8) Hypothyroidism Current Visit: No Status: Acute - Time Spent with Patient Total time spent is greater than 50% in coordination of care (as documented) at patient's floor/unit and/or counseling patient: 25 - 35 minutes Plan of Care Discussed with: patient Internal Medicine: Result - Labs CBC & Chem 7: 10/13/18 05:19 10/14/18 05:33 - ABG Interpretation ABG results: PT/INR, D-dimer PT 18.7 Seconds (9.4-12.1) H 10/12/18 06:26 Consult Discharge Plan - Plan Referrals: Franny Stubbs, ANTIQUE CLOCK REPAIRER [Primary Care Provider] - _ (6) Atrial fibrillation Qualifiers: Atrial fibrillation type: chronic Qualified Code(s): I48.2 - Chronic atrial fibrillation (7) CAD (coronary artery disease) Qualifiers: Coronary Disease-Associated Artery/Lesion type: [place] artery [place] vs. transplanted heart: [place] heart Associated angina: without angina Qualified Code(s): I25.10 - Atherosclerotic heart disease of [place] coronary artery without angina pectoris (8) Hypothyroidism Qualifiers: Hypothyroidism type: unspecified Qualified Code(s): E03.9 - Hypothyroidism, unspecified
[2018-10-16 05:46] LABS: Basophils % 0.7 %; Eosinophils # 0.2 K/mcL (0.0-0.6); Eosinophils % 3.9 %; Hematocrit 39.5 % (37.5-50.1); Hemoglobin 13.5 g/dL (12.9-16.9); Immature Granulocytes % 0.4 % (0-4); Lymphocytes # 1.1 K/mcL (0.6-4.6); Lymphocytes % 21.3 %; Mean Corpuscular HGB Conc 34.2 g/dL (31.6-35.5); Mean Corpuscular Hemoglobin 32.8 pg (28.0-33.3); Mean Corpuscular Volume 95.9 fL (83.0-100.0); Mean Platelet Volume 10.8 fL (9.4-12.4); Monocytes # 0.3 K/mcL (0.0-1.3); Monocytes % 5.8 %; Neutrophils # 3.6 K/mcL (1.6-8.9); Platelet Count 126 K/mcL (140-400); Red Blood Count 4.12 M/mcL (4.19-5.50); Red Cell Distribution Width 13.9 % (11.5-14.5); Segmented Neutrophils % 67.9 %
[2018-10-16 06:09] LABS: Alanine Aminotransferase 44 Units/L (7-52); Albumin 3.4 g/dL (3.5-5.7); Albumin/Globulin Ratio 1.1 (1.1-2.2); Alkaline Phosphatase 108 Units/L (34-104); Aspartate Amino Transferase 49 Units/L (13-39); BUN/Creatinine Ratio 16 (6-26); Bilirubin,Direct 1.3 mg/dL (0.0-0.2); Bilirubin,Indirect 2.9 mg/dL (0.0-1.2); Bilirubin,Total 4.2 mg/dL (0.3-1.0); Blood Urea Nitrogen 19 mg/dL (8-23); Carbon Dioxide 22 mEq/L (23-29); Chloride 101 mEq/L (98-107); Globulin 3.2 g/dL (2.4-3.5); Glucose 170 mg/dL (70-105); Magnesium 1.9 mg/dL (1.6-2.6); Osmolality,Calculated 280 (280-300); Potassium 3.8 mEq/L (3.5-5.1); Sodium 132 mEq/L (136-145); Total Protein 6.6 g/dL (6.4-8.9); eGFR For Non-African Americans > 60 (> 60)
[2018-10-16] MEDS: Insulin LISPRO 300 UNITS/3 ML VIAL SQ SCH ×2 (08:09→11:36)
[2018-10-16] MEDS: Erythromycin OPTH Oint LEFT EYE SCH ×2 (08:10→14:41)
[2018-10-16] MEDS: Metoprolol XL (24 HR) Succ 50 MG TAB.ER.24H PO SCH (08:21)
[2018-10-16] MEDS: Gabapentin 100 MG CAPSULE PO SCH ×2 (08:21→14:46)
[2018-10-16] MEDS: Lactulose Oral Soln 20 GM/30 ML UDC PO SCH (08:22)
[2018-10-16] MEDS: valACYclovir 500 MG TABLET PO SCH ×2 (08:22→14:46)
[2018-10-16] MEDS: Aspirin 81 MG TAB.CHEW PO SCH (08:22)
[2018-10-16] MEDS: Apixaban 5 MG TABLET PO SCH (08:22)
--- NOTE | 2018-10-16 09:59 | Infectious Disease Progress No ---
Date of Encounter: 10/16/18 Time of Encounter: 08:55 - Assessment and Plan (1) Herpes zoster ophthalmicus Status: Acute Location: V1 dermatomal distribution. Not disseminated. No evidence of central nervous system infection at this time. Ophthalmology evaluation noted and appreciated. Recommendations: -Continue Valtrex 1000 mg by mouth 3 times a day (day 3) -Duration of treatment depends on the clinical picture (currently day 5), but likely a total of 7 days. -Additional recommendations per ophthalmology. -Monitor renal function and dose adjust antivirals. (2) Elevated troponin Status: Acute Patient denies chest pain. 10/13/18 troponin 0.13 Management per primary team. (3) Acute encephalopathy Status: Acute Likely secondary to infectious etiology and hyperammonemia Neurology consulted. They do not feel that this is secondary to a central nervous system infection. CT of the head was negative. No meningeal signs on admission per ER documentation. Patient has mild confusion concerning where he is going for care but appears mostly resolved. 10/16/18: Ammonia 66 Continue to monitor closely. (4) Elevated LFTs Status: Acute Likely secondary to chronic liver cirrhosis. Abdominal exam benign. Right upper quadrant ultrasound showed findings concerning for cirrhosis, but no acute abnormality. Continue to trend LFTs. (5) Hyperammonemia Status: Acute Ammonia level elevated at 66 on 10/16, 67 on 10/11. Continue to trend. Management per the primary team. (6) Headache Status: Resolved Likely secondary to herpes zoster. Resolved. Pain management per the primary team. Qualifiers: Headache type: unspecified Headache chronicity pattern: acute headache Intractability: intractable Qualified Code(s): R51 - Headache (7) Atrial fibrillation Status: Chronic Hx of Afib, patient denies lightheadedness, dizziness. On exam irregularly irregular rhythm, HR 78. Management per primary team. Qualifiers: Atrial fibrillation type: chronic Qualified Code(s): I48.2 - Chronic atrial fibrillation (8) PAD (peripheral artery disease) Status: Chronic (9) NEELIMA (obstructive sleep apnea) Status: Chronic (10) COPD (chronic obstructive pulmonary disease) Status: Chronic Qualifiers: COPD type: unspecified COPD Qualified Code(s): J44.9 - Chronic obstructive pulmonary disease, unspecified (11) CAD (coronary artery disease) Status: Chronic Qualifiers: Coronary Disease-Associated Artery/Lesion type: [place] artery [place] vs. transplanted heart: [place] heart Associated angina: without angina Qualified Code(s): I25.10 - Atherosclerotic heart disease of [place] coronary artery without angina pectoris (12) Cirrhosis Status: Acute MELD score 22. Qualifiers: Hepatic cirrhosis type: alcoholic cirrhosis Ascites presence: without ascites Qualified Code(s): K70.30 - Alcoholic cirrhosis of liver without ascites (13) Type 2 diabetes mellitus Status: Chronic Glucose 170. Recommend strict glucose control. Management per the primary team. Qualifiers: Diabetes mellitus group home insulin use: with watermelon inspector use Diabetes mellitus complication status: without complication Qualified Code(s): E11.9 - Type 2 diabetes mellitus without complications; Z79.4 - snf (current) use of insulin - Subjective Interval history: The patient was seen, examined this morning sitting in chair, no acute distress. No acute events over night. Patient admits mild confusion of not knowing where he will be going but is understanding once he is reinformed. He also admits some lower extremity weakness upon standing but denies facial pain or paresthesia, headache, dizziness, lightheadedness, chest pain, cough, nausea, vomiting, diarrhea, constipation. Infect Dis PN-Objective Data - Labs CBC & Chem 7: 10/16/18 05:23 10/16/18 05:23 Labs: Laboratory Results - last 24 hr 10/15/18 10/15/18 10/15/18 07:38 11:45 16:40 WBC RBC Hgb Hct MCV MCH MCHC RDW Plt Count MPV Immature Gran % Seg Neutrophils % Lymphocytes % Monocytes % Eosinophils % Basophils % Neutrophils # Lymphocytes # Monocytes # Eosinophils # Basophils # Sodium Potassium Chloride Carbon Dioxide BUN Creatinine Est GFR ( Amer) Est GFR (Non-Af Amer) BUN/Creatinine Ratio Glucose POC Glucose 129 H 194 H 139 H Calculated Osmolality Calcium Magnesium Total Bilirubin Direct Bilirubin Indirect Bilirubin AST ALT Alkaline Phosphatase Ammonia Serum Total Protein Albumin Globulin Albumin/Globulin Ratio 10/15/18 10/16/18 10/16/18 19:56 00:10 05:23 WBC 5.4 RBC 4.12 L Hgb 13.5 Hct 39.5 MCV 95.9 MCH 32.8 MCHC 34.2 RDW 13.9 Plt Count 126 L MPV 10.8 Immature Gran % 0.4 Seg Neutrophils % 67.9 Lymphocytes % 21.3 Monocytes % 5.8 Eosinophils % 3.9 Basophils % 0.7 Neutrophils # 3.6 Lymphocytes # 1.1 Monocytes # 0.3 Eosinophils # 0.2 Basophils # 0.0 Sodium Potassium Chloride Carbon Dioxide BUN Creatinine Est GFR ( Amer) Est GFR (Non-Af Amer) BUN/Creatinine Ratio Glucose POC Glucose 169 H 161 H Calculated Osmolality Calcium Magnesium Total Bilirubin Direct Bilirubin Indirect Bilirubin AST ALT Alkaline Phosphatase Ammonia Serum Total Protein Albumin Globulin Albumin/Globulin Ratio 10/16/18 10/16/18 10/16/18 05:23 05:23 06:46 WBC RBC Hgb Hct MCV MCH MCHC RDW Plt Count MPV Immature Gran % Seg Neutrophils % Lymphocytes % Monocytes % Eosinophils % Basophils % Neutrophils # Lymphocytes # Monocytes # Eosinophils # Basophils # Sodium 132 L Potassium 3.8 Chloride 101 Carbon Dioxide 22 L BUN 19 Creatinine 1.17 Est GFR ( Amer) > 60 Est GFR (Non-Af Amer) > 60 BUN/Creatinine Ratio 16 Glucose 170 H POC Glucose 163 H Calculated Osmolality 280 Calcium 9.0 Magnesium 1.9 Total Bilirubin 4.2 H Direct Bilirubin 1.3 H Indirect Bilirubin 2.9 H AST 49 H ALT 44 Alkaline Phosphatase 108 H Ammonia 66 H Serum Total Protein 6.6 Albumin 3.4 L Globulin 3.2 Albumin/Globulin Ratio 1.1 Cultures: Cultures 10/11/18 19:57 Urine Culture - Final Urine,Clean Catch No significant growth. 10/11/18 18:35 Influenza Types A,B Antigen - Final Nasopharyngeal Serology 10/11/18 Range/Units 19:57 Urine Color Dark Yellow (Yellow) Urine Clarity Cloudy A (Clear) Urine pH 6.0 (5.0-8.0) pH Units Ur Specific [place] 1.013 (1.010-1.025) Urine Protein 30 H (Neg-Trace) mg/dL Urine Glucose (UA) Normal (Normal) mg/dL Urine Ketones Negative (Negative) mg/dL Urine Blood Negative (Negative) Urine Nitrite Negative (Negative) Urine Bilirubin Negative (Negative) Urine Urobilinogen Normal (Normal) mg/dL Ur Leukocyte Esterase Moderate H (Negative) Urine Microscopic RBC 0-3 (0-3) per hpf Urine Microscopic WBC TNTC H (0-3) per hpf Ur Squamous Epith Cells Few (None-Few) per lpf Urine Bacteria Many H (None-Few) per hpf Hyaline Casts Few (None-Few) per lpf Ur Culture Indicated? YES A (NO) Exam - Constitutional Vitals: Temp Pulse Resp BP Pulse Ox 98.9 F 78 17 152/90 96 10/16/18 06:48 10/16/18 06:48 10/16/18 06:48 10/16/18 06:48 10/16/18 06:48 Exam: Gen.: Vitals noted. Patient in no acute distress Head: Normocephalic, atraumatic Eye: EOMI, PERRL, anicteric sclera ENT: mucosa moist, edentulous of top teeth with denture present, no lesions Neck: Supple. No adenopathy, no carotid bruits Cardiac: Irregularly irregular rhythm, no murmur, +S1/S2 Pulmonary: no wheeze, rales, rhonchi, equal chest expansion Abdomen: BSx4, obese, soft, nontender, no guarding or masses MSK: no joint swelling noted Skin: improving erythematous zoster rash of L face dermatomal V1 distribution, no other rashes, lesions Extremities: no BLE edema, nontender calf, no cyanosis or clubbing, strength +5/5 and sensation symmetric intact of upper and lower extremities Neuro: A&Ox3; moves all extremities Psych: Appropriate mood Consult Discharge Plan - Plan Additional Instructions: FLUID RESTRICTION OF 1800 ML PER DAY... FINGERSTICKS FOR GLUCOSE -- ROUTINE... Referrals: Franny Stubbs CNP [Primary Care Provider] - (patient is going to [facility]) - Attending Attestation I have personally performed a face to face evaluation on this patient. I have reviewed and agree with the care plan. History and Exam by me shows: Patient seen and examined. Appears comfortable. Still has intermittent confus ion. Physical exam: HEENT PERRL EOMI left eye looks good lesions around fully scabbed and actually barely visible Lungs clear to auscultate bilaterally Cardiovascular regular rate and Assessment and plan: Herpes zoster ophthalmicus End-stage liver disease Intermittent confusion no signs of encephalitis secondary to zoster Finish the course of Valtrex Patient ready to leave today
--- NOTE | 2018-10-16 15:11 | Discharge Summary ---
Date of Encounter: 10/16/18 Time of Encounter: 15:09 - Discharge Diagnosis (1) Acute encephalopathy Priority: Primary Status: Acute (2) Shingles Priority: Primary Status: Acute Qualifiers: Herpes zoster complications: with ocular involvement Herpes zoster ocular complication detail: unspecified herpes zoster eye disease Qualified Code(s): B02.30 - Zoster ocular disease, unspecified (3) CAD (coronary artery disease) Priority: Secondary Status: Chronic Qualifiers: Coronary Disease-Associated Artery/Lesion type: [place] artery [place] vs. transplanted heart: [place] heart Associated angina: without angina Qualified Code(s): I25.10 - Atherosclerotic heart disease of [place] coronary artery without angina pectoris (4) Hypothyroidism Priority: Secondary Status: Chronic Qualifiers: Hypothyroidism type: unspecified Qualified Code(s): E03.9 - Hypothyroidism, unspecified (5) FRANCES (acute kidney injury) Priority: Primary Status: Resolved Hospital course: Mr. Romero is a 73 year old male Discharge discussed with: patient, family, case management - Time Spent with Patient Total time spent providing and/or coordinating discharge services: Time spent: Greater than 30 minutes (40 minutes...) - Discharge Medications Prescriptions: New Erythromycin OPTH Oint 1 appl LEFT EYE TID tube Gabapentin [Neurontin] 100 mg PO TID capsule Lactulose 20 gm PO BID udc valACYclovir [Valtrex] 1,000 mg PO TID 2 Days #6 tablet Mupirocin [Bactroban Oint] 1 appl TP BID tube Continue Docusate [Colace] 100 mg PO DAILY #0 Aspirin 81 mg PO DAILY #0 Potassium Chloride [K-Tab ER] 10 meq PO DAILY #0 Ascorbate Calcium [Vitamin C] 1,000 mg PO DAILY #0 ALPRAZolam [Xanax 0.5 MG Tablet] 1 mg PO HS #0 Doxepin HCl 100 mg PO HS #0 Multivit-Min/FA/Lycopen/Lutein [Adults 50+ Multivitamin Tablet] 1 tab PO DAILY #0 Acetaminophen [Tylenol] 500 mg PO BID PRN PRN Reason: Mild Pain Nitroglycerin [Nitrostat] 0.4 mg SL Q5M PRN PRN Reason: Chest Pain Apixaban [Eliquis] 2.5 mg PO BID #90 tablet [place]-3/Dha/Epa/Fish Oil [Fish Oil 1,000 mg Softgel] 1,000 mg PO DAILY Loratadine [Allergy Relief] 10 mg PO BID Ferrous Sulfate [Iron] 325 mg PO BID Carboxymethylcellulos/Glycerin [Refresh Optive Gel Eye Drops] 1 drop BOTH EYES QID PRN PRN Reason: Dry Eye(S) Levothyroxine Sodium 150 mcg PO QAM Rosuvastatin Calcium [Crestor] 20 mg PO QPM Metoprolol Succinate [Toprol Xl] 50 mg PO DAILY Baclofen [Lioresal] 10 mg PO TID PRN PRN Reason: Muscle Spasm Pantoprazole Sodium 40 mg PO BID Isosorbide MONOnitrate [Isosorbide Mononitrate ER] 120 mg PO DAILY Lactulose 15 ml PO TID Changed Furosemide [Lasix] 40 mg PO BID #0 glipiZIDE [Glipizide] 5 mg PO BID #0 Discontinued Insulin Glargine,Hum.rec.anlog [Lantus Solostar] 66 unit SQ QAM Insulin Glargine,Hum.rec.anlog [Lantus Solostar] 28 unit SQ QPM Home Medications: ALPRAZolam [Xanax 0.5 MG Tablet] 1 mg PO HS #0 09/18/15 [History] Ascorbate Calcium [Vitamin C] 1,000 mg PO DAILY #0 09/18/15 [History] Aspirin 81 mg PO DAILY #0 09/18/15 [History] Docusate [Colace] 100 mg PO DAILY #0 09/18/15 [History] Doxepin HCl 100 mg PO HS #0 09/18/15 [History] Multivit-Min/FA/Lycopen/Lutein [Adults 50+ Multivitamin Tablet] 1 tab PO DAILY #0 09/18/15 [History] Potassium Chloride [K-Tab ER] 10 meq PO DAILY #0 09/18/15 [History] Acetaminophen [Tylenol] 500 mg PO BID PRN 01/23/16 [History] Nitroglycerin [Nitrostat] 0.4 mg SL Q5M PRN 01/23/16 [History] Apixaban [Eliquis] 2.5 mg PO BID #90 tablet 01/26/16 [Rx] Loratadine [Allergy Relief] 10 mg PO BID 04/11/17 [History] [place]-3/Dha/Epa/Fish Oil [Fish Oil 1,000 mg Softgel] 1,000 mg PO DAILY 04/11/17 [History] Ferrous Sulfate [Iron] 325 mg PO BID 10/15/17 [History] Carboxymethylcellulos/Glycerin [Refresh Optive Gel Eye Drops] 1 drop BOTH EYES QID PRN 06/27/18 [History] Levothyroxine Sodium 150 mcg PO QAM 06/27/18 [History] Rosuvastatin Calcium [Crestor] 20 mg PO QPM 06/27/18 [History] Baclofen [Lioresal] 10 mg PO TID PRN 09/23/18 [History] Metoprolol Succinate [Toprol Xl] 50 mg PO DAILY 09/23/18 [History] Pantoprazole Sodium 40 mg PO BID 09/23/18 [History] Isosorbide MONOnitrate [Isosorbide Mononitrate ER] 120 mg PO DAILY 10/11/18 [History] Lactulose 15 ml PO TID 10/11/18 [History] Erythromycin OPTH Oint 1 appl LEFT EYE TID tube 10/16/18 [Rx] Furosemide [Lasix] 40 mg PO BID #0 10/16/18 [Rx] Gabapentin [Neurontin] 100 mg PO TID capsule 10/16/18 [Rx] Lactulose 20 gm PO BID udc 10/16/18 [Rx] Mupirocin [Bactroban Oint] 1 appl TP BID tube 10/16/18 [Rx] glipiZIDE [Glipizide] 5 mg PO BID #0 10/16/18 [Rx] valACYclovir [Valtrex] 1,000 mg PO TID 2 Days #6 tablet 10/16/18 [Rx] Allergies/Adverse Reactions: Allergy/AdvReac Type Severity Reaction Status Date / Time tamsulosin Allergy Rash Verified 08/14/18 14:24 Penicillins AdvReac Mild Anaphylaxis Verified 08/14/18 14:24 Date of admission: 10/12/18 15:10 Primary care physician: Franny Stubbs CNP Consults: 10/12/18 09:29 Consult to Physician [CONS] Stat Consulting Provider: Ernesto Helm Reason for Consult: shingles with left ocular involvement Call Completed: Yes 10/12/18 09:30 Consult to Neurology [CONS] Routine Consulting Provider: Neurology [facility] Reason for Consult: confucion, hx CVA. Brain MRI 2 weeks ago negative for acute stroke. Now with increased confusion. Possible shingles with left occular involvement Call Completed: Yes 10/12/18 13:18 Consult to Infectious Diseases [CONS] Routine Consulting Provider: Infectious Disease [facility] Reason for Consult: shingles with ocular involvement Call Completed: No 10/14/18 13:54 Consult to Physical Therapy [CONS] Routine Comment: Evaluate, develop and implement POC Reason for Consult: DECONDITIONING... Does patient have active BEDREST order?: No Is patient medically & hemodynamically stable?: Yes 10/15/18 09:34 Consult to Occupational Therapy [CONS] Routine Comment: Evaluate, develop and implement POC Reason for Consult: eval for ecf Does patient have active BEDREST order?: No Is patient medically & hemodynamically stable?: Yes 10/16/18 09:03 Consult to Sales Representative Cash Registers [CONS] Routine Reason for SW Consult: needs ecf Discharging clinician: Casa [place]a Anticipated date of discharge: 10/16/18 - Constitutional Vitals: Temp Pulse Resp BP Pulse Ox 97.8 F 86 17 132/73 95 10/16/18 11:32 10/16/18 11:32 10/16/18 11:32 10/16/18 11:32 10/16/18 11:32 General appearance: Present: cooperative, A&O X 3, pleasant, no acute distress, answers questions appropriately Exam: xx - Patient Status Disposition: Transfer SNF Condition: Fair Functional capacity at discharge: uses cane/walker Overall status at discharge: patient is progressing back to baseline - Discharge Instructions Follow Up With: Franny Stubbs SULFIDE HEAD OPERATOR [Primary Care Provider] - Additional Instructions: FLUID RESTRICTION OF 1800 ML PER DAY... FINGERSTICKS FOR GLUCOSE -- ROUTINE... - Diet and Activity Activity: ambulate only with your walker Diet: diabetic diet
--- NOTE | 2018-10-16 15:33 | Physician Discharge Referral ---
ExtendedCare Referral Info Transfer To: ECF Provider in Charge: Nehemiah Gurrola Provider in Charge after Transfer: Other (a SNF physician...) - Diagnosis (1) Acute encephalopathy Priority: Primary Status: Acute (2) Shingles Priority: Primary Status: Acute (3) CAD (coronary artery disease) Priority: Secondary Status: Chronic (4) Hypothyroidism Priority: Secondary Status: Chronic (5) FRANCES (acute kidney injury) Priority: Primary Status: Resolved Prognosis: Fair Aware of Diagnosis: Patient, Family Aware of Prognosis: Patient, Family - Transfer Medications Home Medications: ALPRAZolam [Xanax 0.5 MG Tablet] 1 mg PO HS #0 09/18/15 [History] Ascorbate Calcium [Vitamin C] 1,000 mg PO DAILY #0 09/18/15 [History] Aspirin 81 mg PO DAILY #0 09/18/15 [History] Docusate [Colace] 100 mg PO DAILY #0 09/18/15 [History] Doxepin HCl 100 mg PO HS #0 09/18/15 [History] Multivit-Min/FA/Lycopen/Lutein [Adults 50+ Multivitamin Tablet] 1 tab PO DAILY #0 09/18/15 [History] Potassium Chloride [K-Tab ER] 10 meq PO DAILY #0 09/18/15 [History] Acetaminophen [Tylenol] 500 mg PO BID PRN 01/23/16 [History] Nitroglycerin [Nitrostat] 0.4 mg SL Q5M PRN 01/23/16 [History] Apixaban [Eliquis] 2.5 mg PO BID #90 tablet 01/26/16 [Rx] Loratadine [Allergy Relief] 10 mg PO BID 04/11/17 [History] [place]-3/Dha/Epa/Fish Oil [Fish Oil 1,000 mg Softgel] 1,000 mg PO DAILY 04/11/17 [History] Ferrous Sulfate [Iron] 325 mg PO BID 10/15/17 [History] Carboxymethylcellulos/Glycerin [Refresh Optive Gel Eye Drops] 1 drop BOTH EYES QID PRN 06/27/18 [History] Levothyroxine Sodium 150 mcg PO QAM 06/27/18 [History] Rosuvastatin Calcium [Crestor] 20 mg PO QPM 06/27/18 [History] Baclofen [Lioresal] 10 mg PO TID PRN 09/23/18 [History] Metoprolol Succinate [Toprol Xl] 50 mg PO DAILY 09/23/18 [History] Pantoprazole Sodium 40 mg PO BID 09/23/18 [History] Isosorbide MONOnitrate [Isosorbide Mononitrate ER] 120 mg PO DAILY 10/11/18 [History] Lactulose 15 ml PO TID 10/11/18 [History] Erythromycin OPTH Oint 1 appl LEFT EYE TID tube 10/16/18 [Rx] Furosemide [Lasix] 40 mg PO BID #0 10/16/18 [Rx] Gabapentin [Neurontin] 100 mg PO TID capsule 10/16/18 [Rx] Lactulose 20 gm PO BID udc 10/16/18 [Rx] Mupirocin [Bactroban Oint] 1 appl TP BID tube 10/16/18 [Rx] glipiZIDE [Glipizide] 5 mg PO BID #0 10/16/18 [Rx] valACYclovir [Valtrex] 1,000 mg PO TID 2 Days #6 tablet 10/16/18 [Rx] Allergies/Adverse Reactions: Allergy/AdvReac Type Severity Reaction Status Date / Time tamsulosin Allergy Rash Verified 08/14/18 14:24 Penicillins AdvReac Mild Anaphylaxis Verified 08/14/18 14:24 - Respiratory Orders None Smoking Cessation: Smoking cessation has been advised. For more information, call the [place] Tobacco Quit Line at 1-136-GRVK-NOW. - Advance Directives Code Status: Full Code - Mobility Orders Ambulate (WALKER AND ASSISTANCE...) - Rehabiliation Orders Rehab Potential: Fair - Diet Orders No Concentrated Sweets CERTIFICATION: I certify that the transfer of the above named patient to an Extended Care Facility is necessary for the continuing treatment of the diagnosis listed. The above information is true and accurate reflection of patient's current condition. Confidential - Redisclosure prohibited without a patient's written consent.
[2018-10-16 16:10] VITALS: BP 151/99
== END 2018-10-16 17:39 | DRG 124 ==
LOC: EMEROOARM 15:14 → 2SOUTHHOLD 15:14 → SUATTDRO 10-12 15:10 → 2ANU 10-13 21:53
PROVIDERS: ADMIT Internal Medicine; ATTEND Internal Medicine

== ENCOUNTER 2019-07-10 13:32 | Observation (INO) ==
[2019-07-10] MEDS ORDERED: Naloxone 0.4 MG/ML INJ IVP PRN (14:33)
[2019-07-10] MEDS ORDERED: Ondansetron ODT 4 MG TAB.RAPDIS SL PRN (14:39)
[2019-07-10] MEDS ORDERED: Ondansetron 4 MG/2 ML VIAL IVP PRN (14:39)
[2019-07-10] MEDS ORDERED: Dextrose Gel 15 GM/37.5 ML TUBE PO PRN (15:30)
[2019-07-10 15:38] LABS: Hematocrit 38.6 % (37.5-50.1); Mean Corpuscular HGB Conc 33.7 g/dL (31.6-35.5); Mean Corpuscular Hemoglobin 30.4 pg (28.0-33.3); Mean Corpuscular Volume 90.4 fL (83.0-100.0); Mean Platelet Volume 10.4 fL (9.4-12.4); Platelet Count 180 K/mcL (140-400); Red Blood Count 4.27 M/mcL (4.19-5.50); Red Cell Distribution Width 13.8 % (11.5-14.5); White Blood Count 5.9 K/mcL (4.3-11.1)
[2019-07-10 15:39] LABS: INR 1.5; Prothrombin Time 17.5 Seconds (9.4-12.1)
[2019-07-10] MEDS ORDERED: Azithromycin 500 MG in 0.9 % Sodium Chloride 250 ML IVPB SCH (16:00)
[2019-07-10] MEDS ORDERED: cefTRIAXone 2,000 MG in Water for inj. (sterile) 20 ML IVP SCH (16:00)
[2019-07-10 16:07] LABS: Troponin I 0.04 ng/mL (< 0.04)
[2019-07-10 16:45] LABS: Alanine Aminotransferase 41 Units/L (7-52); Albumin 3.7 g/dL (3.5-5.7); Albumin/Globulin Ratio 1.3 (1.1-2.2); Alkaline Phosphatase 118 Units/L (34-104); Aspartate Amino Transferase 42 Units/L (13-39); BUN/Creatinine Ratio 19 (6-26); Bilirubin,Total 1.2 mg/dL (0.3-1.0); Blood Urea Nitrogen 19 mg/dL (8-23); Calcium 9.6 mg/dL (8.6-10.3); Carbon Dioxide 20 mEq/L (23-29); Chloride 108 mEq/L (98-107); Cholesterol 131 mg/dL (< 200); Globulin 2.8 g/dL (2.4-3.5); Glucose 125 mg/dL (70-105); HDL Cholesterol 22 mg/dL (40-59); LDL Cholesterol,Calculated 79 mg/dL (0-99); Osmolality,Calculated 288 (280-300); Potassium 4.4 mEq/L (3.5-5.1); Sodium 137 mEq/L (136-145); Total Protein 6.5 g/dL (6.4-8.9); Triglycerides 152 mg/dL (< 150); eGFR For African Americans > 60 (> 60); eGFR For Non-African Americans > 60 (> 60)
[2019-07-10] MEDS ORDERED: Ringers Solution, Lactated 500 ML IVC ONE (16:54)
[2019-07-10] MEDS: Metoprolol XL (24 HR) Succ 50 MG TAB.ER.24H PO SCH (18:30)
[2019-07-10] MEDS: Fluticasone Propionate Nasal 50 MCG/SPRAY BOTTLE NS SCH (18:35)
[2019-07-10] MEDS: Insulin LISPRO 300 UNITS/3 ML VIAL SQ SCH (18:36)
[2019-07-10] MEDS: Lactulose Oral Soln 20 GM/30 ML UDC PO SCH (19:44)
[2019-07-10] MEDS: Apixaban 5 MG TABLET PO SCH (19:45)
[2019-07-10 20:08] LABS: Bilirubin,Urine Negative (Negative); Blood,Urine Negative (Negative); Clarity,Urine Clear (Clear); Color,Urine Yellow (Yellow); Glucose,Urine (UA) Normal (Normal); Ketones,Urine Negative (Negative); Leukocyte Esterase,Urine Negative (Negative); Nitrite,Urine Negative (Negative); Protein,Urine Negative (Neg-Trace); Urobilinogen,Urine Normal (Normal)
[2019-07-10] MEDS ORDERED: Insulin LISPRO 300 UNITS/3 ML VIAL SQ SCH (21:00)
[2019-07-10] MEDS ORDERED: Insulin DETEMIR 100 UNIT/ML X5UNITS SQ SCH ×2 (21:00)
[2019-07-10] MEDS ORDERED: tiZANidine 4 MG TABLET PO ONE (22:00)
[2019-07-10] MEDS ORDERED: Ipratropium/Albuterol Neb 3 ML IH ONE (23:17)
[2019-07-11] MEDS ORDERED: traZODone 50 MG TABLET PO ONE (02:02)
[2019-07-11] MEDS ORDERED: Melatonin 3 MG TABLET PO ONE (02:03)
[2019-07-11 02:55] LABS: Basophils % 0.4 %; Eosinophils # 0.2 K/mcL (0.0-0.6); Eosinophils % 4.2 %; Hematocrit 36.5 % (37.5-50.1); Hemoglobin 11.9 g/dL (12.9-16.9); Immature Granulocytes % 0.4 % (0-4); Lymphocytes # 1.8 K/mcL (0.6-4.6); Lymphocytes % 35.5 %; Mean Corpuscular HGB Conc 32.6 g/dL (31.6-35.5); Mean Corpuscular Hemoglobin 30.5 pg (28.0-33.3); Mean Corpuscular Volume 93.6 fL (83.0-100.0); Mean Platelet Volume 10.3 fL (9.4-12.4); Monocytes # 0.4 K/mcL (0.0-1.3); Neutrophils # 2.6 K/mcL (1.6-8.9); Platelet Count 146 K/mcL (140-400); Red Cell Distribution Width 13.8 % (11.5-14.5); Segmented Neutrophils % 52.5 %
[2019-07-11 03:03] LABS: INR 1.6; Prothrombin Time 18.3 Seconds (9.4-12.1)
[2019-07-11 07:16] VITALS: BP 139/56
[2019-07-11] MEDS: Insulin LISPRO 300 UNITS/3 ML VIAL SQ SCH (08:08)
[2019-07-11] MEDS ORDERED: Loratadine 10 MG TABLET PO SCH (09:00)
[2019-07-11] MEDS ORDERED: Melatonin 3 MG TABLET PO SCH (09:00)
[2019-07-11] MEDS ORDERED: Lisinopril 20 MG TABLET PO SCH (09:00)
[2019-07-11] MEDS ORDERED: Isosorbide MONOnitrate (24 HR) 60 MG TAB.ER.24H PO SCH (09:00)
[2019-07-11] MEDS ORDERED: Ascorbic Acid 500 MG TABLET PO SCH (09:00)
[2019-07-11] MEDS: Metoprolol XL (24 HR) Succ 50 MG TAB.ER.24H PO SCH (09:26)
[2019-07-11] MEDS: Lactulose Oral Soln 20 GM/30 ML UDC PO SCH (09:26)
[2019-07-11] MEDS: Apixaban 5 MG TABLET PO SCH (09:26)
[2019-07-11] MEDS: Fluticasone Propionate Nasal 50 MCG/SPRAY BOTTLE NS SCH (09:27)
[2019-07-11] MEDS ORDERED: traZODone 50 MG TABLET PO SCH ×2 (21:00)
== END 2019-07-11 13:48 | disposition home or self-care (01) ==
LOC: 2NENU 13:32 → EMEROOARM 13:32 → SUATTDRO 14:17 → 2NENU 15:25
PROVIDERS: ADMIT Internal Medicine; ATTEND Internal Medicine

== ENCOUNTER 2020-10-25 22:40 | Observation (INO) ==
[2020-10-25] MEDS ORDERED: Isovue-370 500 ML BOTTLE IVP ONE (23:03)
[2020-10-25 23:07] LABS: Basophils % 0.7 %; Eosinophils # 0.3 K/mcL (0.0-0.6); Eosinophils % 4.6 %; Hematocrit 40.3 % (37.5-50.1); Hemoglobin 12.8 g/dL (12.9-16.9); Immature Granulocytes % 0.6 % (0-4); Lymphocytes # 1.5 K/mcL (0.6-4.6); Lymphocytes % 28.6 %; Mean Corpuscular HGB Conc 31.8 g/dL (31.6-35.5); Mean Corpuscular Hemoglobin 29.2 pg (28.0-33.3); Mean Corpuscular Volume 91.8 fL (83.0-100.0); Mean Platelet Volume 10.4 fL (9.4-12.4); Monocytes # 0.5 K/mcL (0.0-1.3); Monocytes % 8.4 %; Neutrophils # 3.1 K/mcL (1.6-8.9); Platelet Count 155 K/mcL (140-400); Red Blood Count 4.39 M/mcL (4.19-5.50); Red Cell Distribution Width 14.6 % (11.5-14.5); Segmented Neutrophils % 57.1 %; White Blood Count 5.4 K/mcL (4.3-11.1)
[2020-10-25 23:17] LABS: INR 1.3
[2020-10-25 23:20] LABS: Activated Partial Thrombo Time 38.9 Seconds (26.0-36.0)
[2020-10-25 23:32] LABS: Alanine Aminotransferase 23 Units/L (7-52); Albumin/Globulin Ratio 1.4 (1.1-2.2); Alkaline Phosphatase 93 Units/L (34-104); Aspartate Amino Transferase 26 Units/L (13-39); BUN/Creatinine Ratio 25 (6-26); Bilirubin,Direct 0.3 mg/dL (0.0-0.2); Bilirubin,Indirect 1.2 mg/dL (0.0-1.0); Bilirubin,Total 1.5 mg/dL (0.3-1.0); Blood Urea Nitrogen 30 mg/dL (8-23); Calcium 9.5 mg/dL (8.6-10.3); Carbon Dioxide 28 mEq/L (23-29); Chloride 105 mEq/L (98-107); Globulin 2.9 g/dL (2.4-3.5); Glucose 108 mg/dL (70-105); Lipase 23 Units/L (11-82); Osmolality,Calculated 295 (280-300); Potassium 4.6 mEq/L (3.5-5.1); Sodium 139 mEq/L (136-145); Total Protein 6.9 g/dL (6.4-8.9); Troponin I 0.03 ng/mL (< 0.04); eGFR For African Americans > 60 (> 60); eGFR For Non-African Americans > 60 (> 60)
[2020-10-26] MEDS ORDERED: *HR* Heparin 5,000 UNIT/ML VIAL IVP PRN ×2 (01:09)
[2020-10-26] MEDS ORDERED: *HR* Heparin 5,000 UNIT/ML VIAL IVP ONE (01:09)
[2020-10-26] MEDS: Heparin 25,000UNIT/250ML 1/2NS 25,000 UNIT/250 ML IV.SOLN IVC SCH ×2 (01:32→21:57)
[2020-10-26 02:26] LABS: Bilirubin,Urine Negative (Negative); Blood,Urine Negative (Negative); Clarity,Urine Clear (Clear); Color,Urine Colorless (Yellow); Glucose,Urine (UA) Normal (Normal); Ketones,Urine Negative (Negative); Leukocyte Esterase,Urine Negative (Negative); Nitrite,Urine Negative (Negative); PH,Urine 6.5 pH Units (5.0-8.0); Protein,Urine Trace mg/dL (Neg-Trace); Specific Gravity,Urine 1.021 (1.010-1.025); Urobilinogen,Urine Normal (Normal)
[2020-10-26] MEDS ORDERED: *HR* Dextrose 50 % in Water (Vial) 50 ML VIAL IVP PRN (03:10)
[2020-10-26] MEDS ORDERED: Naloxone 0.4 MG/ML INJ IVP PRN (03:10)
[2020-10-26] MEDS ORDERED: Dextrose Gel 15 GM/37.5 ML TUBE PO PRN ×2 (03:10)
[2020-10-26] MEDS ORDERED: D5% in Water 1,000 ML IVC PRN (03:10)
[2020-10-26] MEDS ORDERED: Ondansetron 4 MG/2 ML VIAL IVP PRN (03:10)
[2020-10-26] MEDS ORDERED: Acetaminophen 325 MG TABLET PO PRN (03:10)
[2020-10-26] MEDS ORDERED: Simethicone 80 MG TAB.CHEW PO PRN (03:14)
[2020-10-26] MEDS ORDERED: Furosemide 20 MG/2 ML VIAL IVP ONE (03:27)
[2020-10-26] MEDS ORDERED: Perflutren Lipid Microsphere 1.3 ML in 0.9 % Sodium Chloride 8.7 ML IVP PRN (03:29)
[2020-10-26] MEDS: Insulin DETEMIR 100 UNIT/ML X5UNITS SUBQ SCH ×2 (06:34→20:05)
[2020-10-26] MEDS: Insulin LISPRO 300 UNITS/3 ML VIAL SUBQ SCH ×3 (08:30→16:12)
[2020-10-26 08:41] LABS: Basophils # 0.1 K/mcL (0.0-0.2); Basophils % 0.9 %; Eosinophils # 0.3 K/mcL (0.0-0.6); Eosinophils % 5.6 %; Hematocrit 43.2 % (37.5-50.1); Hemoglobin 13.9 g/dL (12.9-16.9); Immature Granulocytes % 0.9 % (0-4); Lymphocytes # 1.8 K/mcL (0.6-4.6); Mean Corpuscular HGB Conc 32.2 g/dL (31.6-35.5); Mean Corpuscular Hemoglobin 29.6 pg (28.0-33.3); Mean Corpuscular Volume 92.1 fL (83.0-100.0); Mean Platelet Volume 10.8 fL (9.4-12.4); Monocytes # 0.5 K/mcL (0.0-1.3); Monocytes % 7.7 %; Neutrophils # 3.2 K/mcL (1.6-8.9); Platelet Count 168 K/mcL (140-400); Red Blood Count 4.69 M/mcL (4.19-5.50); Red Cell Distribution Width 14.7 % (11.5-14.5); Segmented Neutrophils % 54.9 %; White Blood Count 5.9 K/mcL (4.3-11.1)
[2020-10-26] MEDS: Spironolactone 25 MG TABLET PO SCH (08:46)
[2020-10-26] MEDS: Isosorbide MONOnitrate (24 HR) 60 MG TAB.ER.24H PO SCH (08:46)
[2020-10-26] MEDS: Pregabalin 50 MG CAPSULE PO SCH ×3 (08:46→21:54)
[2020-10-26] MEDS: lisinopriL 20 MG TABLET PO SCH (08:46)
[2020-10-26] MEDS: Baclofen 10 MG TABLET PO SCH ×3 (08:46→21:54)
[2020-10-26] MEDS: Metoprolol XL (24 HR) Succ 50 MG TAB.ER.24H PO SCH (08:47)
[2020-10-26] MEDS: Lactulose Oral Soln 20 GM/30 ML UDC PO SCH ×2 (08:47→20:05)
[2020-10-26 09:09] LABS: BUN/Creatinine Ratio 25 (6-26); Blood Urea Nitrogen 27 mg/dL (8-23); Calcium 9.8 mg/dL (8.6-10.3); Carbon Dioxide 25 mEq/L (23-29); Chloride 103 mEq/L (98-107); Glucose 99 mg/dL (70-105); Magnesium 1.7 mg/dL (1.6-2.6); Osmolality,Calculated 289 (280-300); Phosphorous 3.9 mg/dL (2.7-4.5); Potassium 4.3 mEq/L (3.5-5.1); Sodium 137 mEq/L (136-145); eGFR For African Americans > 60 (> 60); eGFR For Non-African Americans > 60 (> 60)
[2020-10-26 09:38] LABS: Estimated Average Glucose 151 mg/dl; Hemoglobin A1C 6.9 %
[2020-10-26] MEDS ORDERED: *HR* Atropine Sulfate 1 MG/10 ML SYRINGE IVP STA (10:56)
[2020-10-26] MEDS ORDERED: *HR* Atropine Sulfate 1 MG/10 ML SYRINGE IVP PRN (11:40)
[2020-10-26] MEDS ORDERED: Melatonin 3 MG TABLET PO SCH (21:00)
[2020-10-26] MEDS ORDERED: traZODone 50 MG TABLET PO SCH (21:00)
[2020-10-26] MEDS ORDERED: Insulin LISPRO 300 UNITS/3 ML VIAL SUBQ SCH (21:00)
[2020-10-27 01:03] LABS: Basophils # 0.1 K/mcL (0.0-0.2); Basophils % 0.9 %; Eosinophils # 0.3 K/mcL (0.0-0.6); Eosinophils % 5.1 %; Hematocrit 41.5 % (37.5-50.1); Hemoglobin 13.3 g/dL (12.9-16.9); Immature Granulocytes % 0.4 % (0-4); Lymphocytes # 1.8 K/mcL (0.6-4.6); Lymphocytes % 30.6 %; Mean Corpuscular Hemoglobin 29.4 pg (28.0-33.3); Mean Corpuscular Volume 91.6 fL (83.0-100.0); Mean Platelet Volume 10.6 fL (9.4-12.4); Monocytes # 0.5 K/mcL (0.0-1.3); Monocytes % 8.4 %; Neutrophils # 3.1 K/mcL (1.6-8.9); Platelet Count 183 K/mcL (140-400); Red Blood Count 4.53 M/mcL (4.19-5.50); Red Cell Distribution Width 14.7 % (11.5-14.5); Segmented Neutrophils % 54.6 %; White Blood Count 5.7 K/mcL (4.3-11.1)
[2020-10-27 01:23] LABS: BUN/Creatinine Ratio 26 (6-26); Blood Urea Nitrogen 35 mg/dL (8-23); Calcium 9.1 mg/dL (8.6-10.3); Carbon Dioxide 28 mEq/L (23-29); Chloride 103 mEq/L (98-107); Glucose 68 mg/dL (70-105); Osmolality,Calculated 290 (280-300); Phosphorous 4.8 mg/dL (2.7-4.5); Potassium 4.3 mEq/L (3.5-5.1); Sodium 137 mEq/L (136-145); eGFR For African Americans > 60 (> 60); eGFR For Non-African Americans 51 (> 60)
[2020-10-27] MEDS: Insulin LISPRO 300 UNITS/3 ML VIAL SUBQ SCH ×2 (07:14→11:51)
[2020-10-27] MEDS: Spironolactone 25 MG TABLET PO SCH (08:39)
[2020-10-27] MEDS: Isosorbide MONOnitrate (24 HR) 60 MG TAB.ER.24H PO SCH (08:40)
[2020-10-27] MEDS: Lactulose Oral Soln 20 GM/30 ML UDC PO SCH (08:41)
[2020-10-27] MEDS: lisinopriL 20 MG TABLET PO SCH (08:42)
[2020-10-27] MEDS: Pregabalin 50 MG CAPSULE PO SCH ×2 (08:42→15:10)
[2020-10-27] MEDS: Baclofen 10 MG TABLET PO SCH ×2 (08:42→15:10)
[2020-10-27] MEDS: Metoprolol XL (24 HR) Succ 50 MG TAB.ER.24H PO SCH (08:45)
[2020-10-27] MEDS ORDERED: Apixaban 5 MG TABLET PO SCH (09:00)
[2020-10-27 15:56] VITALS: BP 101/76
[2020-10-28] MEDS ORDERED: lisinopriL 5 MG TABLET PO SCH (09:00)
== END 2020-10-27 15:30 | disposition home or self-care (01) ==
LOC: EMEROOARM 22:40 → 2NENU 22:40 → SUATTDRO 10-26 02:13 → 2NENU 10-26 03:59
PROVIDERS: ADMIT Student in an Organized Health Care Education/Training Program; ATTEND Student in an Organized Health Care Education/Training Program

== ENCOUNTER 2020-11-21 15:56 | Observation (INO) ==
[2020-11-21] MEDS ORDERED: Acetaminophen 325 MG TABLET PO PRN (18:23)
[2020-11-21] MEDS ORDERED: Ondansetron 4 MG/2 ML VIAL IVP PRN (18:23)
[2020-11-21] MEDS ORDERED: Naloxone 0.4 MG/ML INJ IVP PRN (18:23)
[2020-11-21] MEDS ORDERED: Melatonin 3 MG TABLET PO PRN (18:23)
[2020-11-21] MEDS ORDERED: Dextrose Gel 15 GM/37.5 ML TUBE PO PRN ×2 (18:29)
[2020-11-21] MEDS ORDERED: *HR* Dextrose 50 % in Water (Vial) 50 ML VIAL IVP PRN (18:29)
[2020-11-21] MEDS ORDERED: D5% in Water 1,000 ML IVC PRN (18:29)
[2020-11-21] MEDS ORDERED: Calcium Gluconate 1gm/50mL 1 GM/50 ML BAG IVPB ONE (19:48)
[2020-11-21 20:25] LABS: Basophils % 0.2 %; Eosinophils # 0.1 K/mcL (0.0-0.6); Eosinophils % 1.1 %; Hematocrit 41.5 % (37.5-50.1); Hemoglobin 13.1 g/dL (12.9-16.9); Immature Granulocytes % 0.5 % (0-4); Lymphocytes # 0.5 K/mcL (0.6-4.6); Lymphocytes % 9.2 %; Mean Corpuscular HGB Conc 31.6 g/dL (31.6-35.5); Mean Corpuscular Volume 91.8 fL (83.0-100.0); Mean Platelet Volume 10.9 fL (9.4-12.4); Monocytes # 0.1 K/mcL (0.0-1.3); Monocytes % 1.4 %; Neutrophils # 4.9 K/mcL (1.6-8.9); Platelet Count 182 K/mcL (140-400); Red Blood Count 4.52 M/mcL (4.19-5.50); Red Cell Distribution Width 15.7 % (11.5-14.5); Segmented Neutrophils % 87.6 %; White Blood Count 5.6 K/mcL (4.3-11.1)
[2020-11-21 20:52] LABS: Albumin 3.2 g/dL (3.5-5.7); Albumin/Globulin Ratio 1.4 (1.1-2.2); Bilirubin,Total 1.4 mg/dL (0.3-1.0); Calcium 8.5 mg/dL (8.6-10.3); Globulin 2.3 g/dL (2.4-3.5); Potassium 5.3 mEq/L (3.5-5.1); Total Protein 5.5 g/dL (6.4-8.9)
[2020-11-21] MEDS ORDERED: Insulin LISPRO 300 UNITS/3 ML VIAL SUBQ SCH (21:00)
[2020-11-21] MEDS: Apixaban 5 MG TABLET PO SCH (21:30)
[2020-11-21] MEDS ORDERED: 0.9 % Sodium Chloride 1,000 ML IVC ONE (21:46)
[2020-11-21] MEDS ORDERED: Melatonin 3 MG TABLET PO SCH (22:00)
[2020-11-21] MEDS: Baclofen 10 MG TABLET PO SCH (22:04)
[2020-11-22 05:12] LABS: Eosinophils % 0.7 %; Hematocrit 40.6 % (37.5-50.1); Hemoglobin 12.9 g/dL (12.9-16.9); Immature Granulocytes % 0.7 % (0-4); Lymphocytes # 0.4 K/mcL (0.6-4.6); Lymphocytes % 6.6 %; Mean Corpuscular HGB Conc 31.8 g/dL (31.6-35.5); Mean Corpuscular Hemoglobin 29.1 pg (28.0-33.3); Mean Corpuscular Volume 91.4 fL (83.0-100.0); Mean Platelet Volume 10.5 fL (9.4-12.4); Monocytes # 0.1 K/mcL (0.0-1.3); Monocytes % 2.3 %; Neutrophils # 5.4 K/mcL (1.6-8.9); Platelet Count 168 K/mcL (140-400); Red Blood Count 4.44 M/mcL (4.19-5.50); Red Cell Distribution Width 15.5 % (11.5-14.5); Segmented Neutrophils % 89.7 %
[2020-11-22 05:19] LABS: INR 1.6; Prothrombin Time 18.7 Seconds (9.4-12.1)
[2020-11-22 05:48] LABS: Albumin 3.2 g/dL (3.5-5.7); Albumin/Globulin Ratio 1.3 (1.1-2.2); Bilirubin,Total 1.3 mg/dL (0.3-1.0); Calcium 8.6 mg/dL (8.6-10.3); Globulin 2.4 g/dL (2.4-3.5); Magnesium 2.1 mg/dL (1.6-2.6); Phosphorous 3.1 mg/dL (2.7-4.5); Potassium 5.4 mEq/L (3.5-5.1); Total Protein 5.6 g/dL (6.4-8.9)
[2020-11-22] MEDS: Insulin LISPRO 300 UNITS/3 ML VIAL SUBQ SCH ×2 (07:47→12:08)
[2020-11-22] MEDS: Apixaban 5 MG TABLET PO SCH (07:47)
[2020-11-22] MEDS: Baclofen 10 MG TABLET PO SCH ×2 (07:47→14:16)
[2020-11-22 15:38] VITALS: BP 102/76
== END 2020-11-22 16:18 | disposition home health service (06) ==
LOC: 2NENU
PROVIDERS: ADMIT Internal Medicine; ATTEND Internal Medicine

== ENCOUNTER 2021-03-23 06:27 | Inpatient (IN) ==
[~2021-03-23 06:27] MED LIST: 0.9 % Sodium Chloride 1,000 ML IVC ONE; Famotidine 20 MG/2 ML VIAL IVP ONE
[2021-03-23] MEDS ORDERED: Vancomycin 1,500 MG/265 ML IV.SOLN IVPB ONE (06:44)
[2021-03-23] MEDS ORDERED: CeFAZolin Syr 2,000MG/20 ML 2,000 MG/20 ML SYRINGE IVPB ONE (06:44)
[2021-03-23] MEDS ORDERED: Lidocaine -MPF 4% 5 ML AMPUL ONE (07:33)
[2021-03-23] MEDS ORDERED: Heparin 1,000 UNITS/500 mL 0 ML ONE (07:36)
[2021-03-23] MEDS ORDERED: EPHEDrine 50 MG/ML VIAL ONE (07:38)
[2021-03-23] MEDS ORDERED: *HR* FentaNYL (PF) 100 MCG/2 ML VIAL ONE (07:38)
[2021-03-23] MEDS ORDERED: Ondansetron 4 MG/2 ML VIAL ONE (07:40)
[2021-03-23] MEDS ORDERED: *HR* Rocuronium Bromide 50 MG/5 ML VIAL ONE ×2 (07:40→09:59)
[2021-03-23] MEDS ORDERED: *HR* Phenylephrine 10 MG/ML VIAL ONE (07:40)
[2021-03-23] MEDS ORDERED: Lidocaine -MPF 2% 2 ML VIAL ONE ×2 (07:40→08:42)
[2021-03-23] MEDS ORDERED: *HR* Propofol 200 MG/20 ML VIAL IVP ONE (07:41)
[2021-03-23] MEDS ORDERED: *HR* Remifentanil 2 MG VIAL IVP ONE (07:47)
[2021-03-23] MEDS ORDERED: *HR* Vasopressin 20 UNIT/ML VIAL ONE (08:00)
[2021-03-23] MEDS ORDERED: Albumin Human 5% 25.0 GM/500 ML IV.SOLN ONE (08:00)
[2021-03-23] MEDS ORDERED: Bupivacaine-MPF 0.25% 10 ML VIAL ONE (08:09)
[2021-03-23] MEDS ORDERED: Heparin 1,000 UNITS/500 mL 2,000 ML ONE (08:10)
[2021-03-23] MEDS ORDERED: Vancomycin 1,000 MG VIAL ONE (08:11)
[2021-03-23] MEDS ORDERED: Vancomycin 1,000 MG, Sodium Chloride IRRigation 1,000 ML IR ONE (08:15)
[2021-03-23] MEDS ORDERED: *HR* FentaNYL (PF) 100 MCG/2 ML VIAL IVP PRN (08:23)
[2021-03-23] MEDS ORDERED: Nitroglycerin 0.4 MG TAB.SUBL SL PRN (08:24)
[2021-03-23] MEDS ORDERED: Naloxone 0.4 MG/ML INJ IVP PRN ×2 (08:24→13:50)
[2021-03-23] MEDS ORDERED: Ondansetron 4 MG/2 ML VIAL IVP PRN ×2 (08:24→13:50)
[2021-03-23] MEDS ORDERED: Albuterol 2.5 MG/3 ML NEBULIZER IH PRN (08:24)
[2021-03-23] MEDS: Ringers Solution, Lactated 1,000 ML IVC ONE ×2 (08:29→12:35)
[2021-03-23] MEDS ORDERED: *HR* Etomidate 40 MG/20 ML VIAL IVP ONE (08:51)
[2021-03-23] MEDS ORDERED: *HR* Succinylcholine 200 MG/10 ML VIAL IVP ONE (08:52)
[2021-03-23] MEDS ORDERED: *HR* Magnesium Sulfate 1 GM/2 ML VIAL ONE (09:26)
[2021-03-23 09:44] LABS: ABG Base Excess 2 mEq/L (-2 to 3); ABG Chloride 104 mEq/L (98-107); ABG Glucose 120 mg/dL (60-95); ABG HCO3 26 mEq/L (21-27); ABG Ionized Calcium 1.21 mmol/L (1.15-1.35); ABG Oxygen Saturation 100 % (95-98); ABG PCO2 40 mmHg (35-45); ABG PH 7.42 pH Units (7.32-7.45); ABG PO2 243 mmHg (85-104); ABG TCO2 27 mEq/L (20-26)
[2021-03-23] MEDS ORDERED: *HR* Heparin 5,000 UNIT/ML VIAL ONE ×2 (10:34→11:39)
[2021-03-23] MEDS ORDERED: Sugammadex Sodium 200 MG/2 ML VIAL IV ONE (12:08)
[2021-03-23] MEDS: *HR* HYDROmorphone (PF) 1 MG/ML SYRINGE IVP PRN ×2 (13:08→13:15)
[2021-03-23] MEDS ORDERED: *HR* OxyCODONE Immed Rel 5 MG TABLET PO PRN (13:50)
[2021-03-23] MEDS ORDERED: D5% in Water 1,000 ML IVC PRN (13:50)
[2021-03-23] MEDS ORDERED: *HR* Labetalol 20 MG/4 ML SYRINGE IVP PRN (13:50)
[2021-03-23] MEDS ORDERED: 0.9 % Sodium Chloride 500 ML IVC SCH (13:50)
[2021-03-23] MEDS ORDERED: *HR* Dextrose 50 % in Water (Vial) 50 ML VIAL IVP PRN (13:50)
[2021-03-23] MEDS ORDERED: *HR* HYDROcodone/Acet 5/325 mg TABLET PO PRN (13:50)
[2021-03-23] MEDS ORDERED: Acetaminophen 325 MG TABLET PO PRN (13:50)
[2021-03-23] MEDS ORDERED: Dextrose Gel 15 GM/37.5 ML TUBE PO PRN ×2 (13:50)
[2021-03-23] MEDS ORDERED: traZODone 50 MG TABLET PO PRN (13:50)
[2021-03-23] MEDS ORDERED: Baclofen 10 MG TABLET PO PRN (13:50)
[2021-03-23] MEDS ORDERED: (Diclofenac Sodium [Arthritis Pain] 100 GM Gel..Gram. TP PRN (13:50)
[2021-03-23] MEDS: CeFAZolin 2 GM/120 ML BAG IVPB SCH ×2 (16:08→23:51)
[2021-03-23] MEDS: Artificial Tears SOLN 15 ML BOTTLE BOTH EYES SCH ×2 (16:10→21:39)
[2021-03-23] MEDS: Pregabalin 50 MG CAPSULE PO SCH ×2 (16:10→21:38)
[2021-03-23] MEDS: Insulin LISPRO 300 UNITS/3 ML VIAL SUBQ SCH (16:12)
[2021-03-23] MEDS ORDERED: Cholecalciferol (D-3) 1,000 UNIT (25MCG) TABLET PO SCH (18:00)
[2021-03-23] MEDS: Budesonide/Formoterol 160/4.5 1 PUFF INH IH SCH (19:34)
[2021-03-23] MEDS ORDERED: Insulin LISPRO 300 UNITS/3 ML VIAL SUBQ SCH (21:00)
[2021-03-23] MEDS ORDERED: Isosorbide MONOnitrate (24 HR) 60 MG TAB.ER.24H PO SCH (21:00)
[2021-03-23] MEDS ORDERED: Melatonin 3 MG TABLET PO SCH (21:00)
[2021-03-23] MEDS ORDERED: Lacri-Lube 3.5 GM TUBE BOTH EYES SCH (21:00)
[2021-03-23] MEDS: Metoprolol XL (24 HR) Succ 50 MG TAB.ER.24H PO SCH (21:37)
[2021-03-23] MEDS: Lactulose Oral Soln 20 GM/30 ML UDC PO SCH (21:38)
[2021-03-23] MEDS: IPRATROPIUM BROMIDE NS SCH (21:39)
[2021-03-24 05:40] LABS: Basophils % 0.1 %; Hematocrit 28.5 % (37.5-50.1); Hemoglobin 9.1 g/dL (12.9-16.9); Immature Granulocytes % 0.4 % (0-4); Lymphocytes # 0.7 K/mcL (0.6-4.6); Lymphocytes % 9.5 %; Mean Corpuscular HGB Conc 31.9 g/dL (31.6-35.5); Mean Corpuscular Hemoglobin 28.4 pg (28.0-33.3); Mean Corpuscular Volume 89.1 fL (83.0-100.0); Mean Platelet Volume 11.2 fL (9.4-12.4); Monocytes # 0.5 K/mcL (0.0-1.3); Neutrophils # 6.4 K/mcL (1.6-8.9); Platelet Count 112 K/mcL (140-400); White Blood Count 7.8 K/mcL (4.3-11.1)
[2021-03-24 05:58] LABS: BUN/Creatinine Ratio 22 (6-26); Blood Urea Nitrogen 24 mg/dL (8-23); Calcium 8.1 mg/dL (8.6-10.3); Carbon Dioxide 27 mEq/L (23-29); Chloride 106 mEq/L (98-107); Glucose 149 mg/dL (70-105); Osmolality,Calculated 291 (280-300); Potassium 4.6 mEq/L (3.5-5.1); Sodium 137 mEq/L (136-145); eGFR For African Americans > 60 (> 60); eGFR For Non-African Americans > 60 (> 60)
[2021-03-24] MEDS ORDERED: *HR* Heparin 5,000 UNIT/ML VIAL SQ SCH ×2 (06:00)
[2021-03-24] MEDS: Metoprolol XL (24 HR) Succ 50 MG TAB.ER.24H PO SCH (08:26)
[2021-03-24] MEDS: Pregabalin 50 MG CAPSULE PO SCH (08:26)
[2021-03-24] MEDS: Lactulose Oral Soln 20 GM/30 ML UDC PO SCH (08:27)
[2021-03-24] MEDS: Artificial Tears SOLN 15 ML BOTTLE BOTH EYES SCH (08:27)
[2021-03-24] MEDS: Insulin LISPRO 300 UNITS/3 ML VIAL SUBQ SCH ×2 (08:28→12:05)
[2021-03-24] MEDS ORDERED: Multivit/Ca/Min/Fe/FA 1 TAB TABLET PO SCH (09:00)
[2021-03-24] MEDS ORDERED: Furosemide 20 MG TABLET PO SCH (09:00)
[2021-03-24] MEDS ORDERED: Ascorbic Acid 500 MG TABLET PO SCH (09:00)
[2021-03-24] MEDS ORDERED: Tiotropium 10 INH DOSE IH SCH (09:00)
[2021-03-24] MEDS ORDERED: lisinopriL 20 MG TABLET PO SCH (09:00)
[2021-03-24] MEDS ORDERED: Fluticasone Propionate Nasal 50 MCG/SPRAY BOTTLE NS SCH (09:00)
[2021-03-24] MEDS: IPRATROPIUM BROMIDE NS SCH (10:31)
[2021-03-24 11:08] VITALS: BP 94/64; PULSE 75; TEMP 98
[2021-03-24] MEDS: Budesonide/Formoterol 160/4.5 1 PUFF INH IH SCH (11:23)
[2021-03-24 11:25] VITALS: O2SAT 98
== END 2021-03-24 15:01 | disposition home or self-care (01) | DRG 252 ==
LOC: SAMDAY 06:27 → 2NNU 14:27
PROVIDERS: ADMIT Surgery; ATTEND Surgery

== ENCOUNTER 2021-07-05 16:27 | Inpatient (IN) ==
[2021-07-05] MEDS ORDERED: Vancomycin 1,750 MG/517.5 ML IV.SOLN IVPB ONE (19:00)
[2021-07-05 19:53] LABS: Basophils % 0.1 %; Eosinophils % 0.3 %; Hematocrit 33.2 % (37.5-50.1); Hemoglobin 10.1 g/dL (12.9-16.9); Immature Granulocytes % 0.6 % (0-4); Lymphocytes # 0.8 K/mcL (0.6-4.6); Lymphocytes % 10.3 %; Mean Corpuscular HGB Conc 30.4 g/dL (31.6-35.5); Mean Corpuscular Hemoglobin 26.8 pg (28.0-33.3); Mean Corpuscular Volume 88.1 fL (83.0-100.0); Mean Platelet Volume 10.3 fL (9.4-12.4); Monocytes # 0.8 K/mcL (0.0-1.3); Monocytes % 9.5 %; Neutrophils # 6.3 K/mcL (1.6-8.9); Platelet Count 184 K/mcL (140-400); Red Blood Count 3.77 M/mcL (4.19-5.50); Red Cell Distribution Width 16.5 % (11.5-14.5); Segmented Neutrophils % 79.2 %; White Blood Count 7.9 K/mcL (4.3-11.1)
[2021-07-05 20:25] LABS: Albumin 3.4 g/dL (3.5-5.7); Albumin/Globulin Ratio 1.2 (1.1-2.2); Bilirubin,Total 1.6 mg/dL (0.3-1.0); Calcium 9.1 mg/dL (8.6-10.3); Globulin 2.8 g/dL (2.4-3.5); Potassium 4.3 mEq/L (3.5-5.1); Total Protein 6.2 g/dL (6.4-8.9); Troponin I 0.05 ng/mL (< 0.04)
[2021-07-05] MEDS ORDERED: Cefepime HCl 1,000 MG in 0.9 % Sodium Chloride Mini Bag 100 ML IVPB STA (21:03)
[2021-07-05] MEDS ORDERED: Melatonin 3 MG TABLET PO PRN (21:53)
[2021-07-05] MEDS ORDERED: Naloxone 0.4 MG/ML INJ IVP PRN (21:53)
[2021-07-05] MEDS ORDERED: D5% in Water 1,000 ML IVC PRN (22:04)
[2021-07-05] MEDS ORDERED: *HR* Dextrose 50 % in Water (Syg) 50 ML SYRINGE IVP PRN (22:04)
[2021-07-05] MEDS ORDERED: Dextrose Gel 15 GM/37.5 ML TUBE PO PRN ×2 (22:04)
[2021-07-05] MEDS ORDERED: Baclofen 10 MG TABLET PO PRN (22:05)
[2021-07-05] MEDS ORDERED: DICLOFENAC SODIUM TP PRN (22:05)
[2021-07-05] MEDS ORDERED: traZODone 50 MG TABLET PO PRN (22:05)
[2021-07-05] MEDS ORDERED: Heparin 25,000 UNIT/250 ML 25,000 UNIT/250 ML IV.SOLN IVC SCH (23:45)
[2021-07-05] MEDS ORDERED: *HR* Heparin 5,000 UNIT/ML VIAL IVP PRN ×2 (23:52)
[2021-07-06] MEDS ORDERED: Heparin 25,000UNIT/250ML 1/2NS 25,000 UNIT/250 ML IV.SOLN IVC SCH (00:45)
[2021-07-06] MEDS ORDERED: Heparin 25,000 UNIT/250 ML 25,000 UNIT/250 ML IV.SOLN IVC SCH (00:45)
[2021-07-06 03:05] LABS: Basophils % 0.1 %; Eosinophils % 0.4 %; Hematocrit 31.2 % (37.5-50.1); Immature Granulocytes % 0.7 % (0-4); Lymphocytes # 0.8 K/mcL (0.6-4.6); Lymphocytes % 11.4 %; Mean Corpuscular HGB Conc 32.1 g/dL (31.6-35.5); Mean Corpuscular Hemoglobin 27.5 pg (28.0-33.3); Mean Corpuscular Volume 85.7 fL (83.0-100.0); Mean Platelet Volume 10.4 fL (9.4-12.4); Monocytes # 0.7 K/mcL (0.0-1.3); Monocytes % 9.8 %; Neutrophils # 5.7 K/mcL (1.6-8.9); Platelet Count 186 K/mcL (140-400); Red Blood Count 3.64 M/mcL (4.19-5.50); Red Cell Distribution Width 16.2 % (11.5-14.5); Segmented Neutrophils % 77.6 %; White Blood Count 7.4 K/mcL (4.3-11.1)
[2021-07-06 03:14] LABS: Calcium 8.7 mg/dL (8.6-10.3); Magnesium 1.8 mg/dL (1.6-2.6); Phosphorous 2.3 mg/dL (2.7-4.5); Potassium 4.2 mEq/L (3.5-5.1)
[2021-07-06] MEDS ORDERED: *HR* HYDROmorphone (PF) 1 MG/ML SYRINGE IVP ONE (03:24)
[2021-07-06 03:26] LABS: INR 1.9; Prothrombin Time 20.8 Seconds (9.4-12.1)
[2021-07-06] MEDS ORDERED: Piperacillin/Tazobactam 3.375 GM in 0.9 % Sodium Chloride Mini Bag 100 ML IVPB SCH (08:20)
[2021-07-06] MEDS ORDERED: Apixaban 5 MG TABLET PO SCH (09:00)
[2021-07-06] MEDS ORDERED: NON-FORMULARY MEDICATION 1 EACH EACH (Vit C/Vit E/Lutein/Min/Omega-3 [Ocuvite Softgel] 1 E PO SCH (09:00)
[2021-07-06] MEDS ORDERED: NON-FORMULARY MEDICATION 1 EACH EACH (Multivit-Min/Fa/Lycopen/Lutein [Adults 50+ Multivita PO SCH (09:00)
[2021-07-06] MEDS: Lactulose Oral Soln 20 GM/30 ML UDC PO SCH ×2 (09:27→21:02)
[2021-07-06] MEDS: Artificial Tears SOLN 15 ML BOTTLE BOTH EYES SCH ×3 (09:28→21:03)
[2021-07-06] MEDS: Vitamin E 200 UNIT (90MG) CAPSULE PO SCH (09:28)
[2021-07-06] MEDS: Metoprolol XL (24 HR) Succ 50 MG TAB.ER.24H PO SCH ×2 (09:28→21:02)
[2021-07-06] MEDS: Pregabalin 50 MG CAPSULE PO SCH ×3 (09:28→21:01)
[2021-07-06] MEDS: Ascorbic Acid 500 MG TABLET PO SCH (09:28)
[2021-07-06] MEDS: Fluticasone Propionate Nasal 50 MCG/SPRAY BOTTLE NS SCH (09:29)
[2021-07-06] MEDS: (Ipratropium Bromide 15 ML Spray) NS SCH ×2 (09:33→21:03)
[2021-07-06] MEDS: SALMETEROL IH SCH ×2 (09:34→21:20)
[2021-07-06] MEDS: FLUTICASONE PROPION IH SCH ×2 (09:34→21:20)
[2021-07-06] MEDS: Tiotropium 10 INH DOSE IH SCH (09:56)
[2021-07-06] MEDS ORDERED: Vancomycin 1,500 MG/265 ML IV.SOLN IVPB SCH (10:00)
[2021-07-06] MEDS: Insulin LISPRO 300 UNITS/3 ML VIAL SUBQ SCH ×4 (10:03→19:56)
[2021-07-06] MEDS ORDERED: Perflutren Lipid Microsphere 1.3 ML in 0.9 % Sodium Chloride 8.7 ML IVP PRN (11:33)
[2021-07-06] MEDS: 0.9 % Sodium Chloride 1,000 ML IVC SCH (11:38)
[2021-07-06] MEDS: Cefepime HCl 2,000 MG in 0.9 % Sodium Chloride Mini Bag 100 ML IVP SCH (16:36)
[2021-07-06] MEDS: ZINC GLUCONATE 50 MG PO SCH (16:44)
[2021-07-06] MEDS: (Fish Oil 1,000 Mg Softgel) PO SCH (16:44)
[2021-07-06] MEDS: Cholecalciferol (D-3) 1,000 UNIT (25MCG) TABLET PO SCH (17:02)
[2021-07-06] MEDS: Melatonin 3 MG TABLET PO SCH (21:02)
[2021-07-06] MEDS: Lacri-Lube 3.5 GM TUBE BOTH EYES SCH (21:03)
[2021-07-06] MEDS: Apixaban 5 MG TABLET PO SCH (21:03)
[2021-07-07 02:04] LABS: Basophils % 0.3 %; Eosinophils # 0.2 K/mcL (0.0-0.6); Eosinophils % 2.6 %; Hematocrit 34.7 % (37.5-50.1); Hemoglobin 10.8 g/dL (12.9-16.9); Immature Granulocytes % 0.6 % (0-4); Lymphocytes # 0.7 K/mcL (0.6-4.6); Lymphocytes % 10.3 %; Mean Corpuscular HGB Conc 31.1 g/dL (31.6-35.5); Mean Corpuscular Hemoglobin 27.2 pg (28.0-33.3); Mean Corpuscular Volume 87.4 fL (83.0-100.0); Mean Platelet Volume 10.3 fL (9.4-12.4); Monocytes # 0.7 K/mcL (0.0-1.3); Monocytes % 11.2 %; Neutrophils # 4.9 K/mcL (1.6-8.9); Platelet Count 188 K/mcL (140-400); Red Blood Count 3.97 M/mcL (4.19-5.50); Red Cell Distribution Width 16.3 % (11.5-14.5); White Blood Count 6.5 K/mcL (4.3-11.1)
[2021-07-07 02:19] LABS: Calcium 8.8 mg/dL (8.6-10.3); Potassium 4.4 mEq/L (3.5-5.1)
[2021-07-07] MEDS: Cefepime HCl 2,000 MG in 0.9 % Sodium Chloride Mini Bag 100 ML IVP SCH ×2 (02:33→14:17)
[2021-07-07 07:49] LABS: Acinetobacter baumannii by PCR Not Detected (Not Detect); Candida albicans by PCR Not Detected (Not Detect); Candida glabrata by PCR Not Detected (Not Detect); Candida krusei by PCR Not Detected (Not Detect); Candida parapsilosis by PCR Not Detected (Not Detect); Candida tropicalis by PCR Not Detected (Not Detect); Enterobacter cloacae Cmplx PCR Not Detected (Not Detect); Enterococcus by PCR Not Detected (Not Detect); Escherichia coli by PCR DETECTED (Not Detect); Klebsiella oxytoca by PCR Not Detected (Not Detect); Klebsiella pneumoniae by PCR Not Detected (Not Detect); Proteus by PCR Not Detected (Not Detect); Pseudomonas aeruginosa by PCR Not Detected (Not Detect); Serratia marcescens by PCR Not Detected (Not Detect); Staphylococcus aureus by PCR Not Detected (Not Detect); Staphylococcus by PCR Not Detected (Not Detect); Streptococcus agalactiae(B)PCR Not Detected (Not Detect); Streptococcus by PCR Not Detected (Not Detect); Streptococcus pneumoniae PCR Not Detected (Not Detect); Streptococcus pyogenes (A) PCR Not Detected (Not Detect); blaKPC Carbapenem-Resist Gene Not Detected (Not Detect)
[2021-07-07 07:53] LABS: Acinetobacter baumannii by PCR Not Detected (Not Detect); Candida albicans by PCR Not Detected (Not Detect); Candida glabrata by PCR Not Detected (Not Detect); Candida krusei by PCR Not Detected (Not Detect); Candida parapsilosis by PCR Not Detected (Not Detect); Candida tropicalis by PCR Not Detected (Not Detect); Enterobacter cloacae Cmplx PCR Not Detected (Not Detect); Enterobacteriaceae by PCR Not Detected (Not Detect); Enterococcus by PCR Not Detected (Not Detect); Escherichia coli by PCR Not Detected (Not Detect); Klebsiella oxytoca by PCR Not Detected (Not Detect); Klebsiella pneumoniae by PCR Not Detected (Not Detect); Proteus by PCR Not Detected (Not Detect); Pseudomonas aeruginosa by PCR Not Detected (Not Detect); Serratia marcescens by PCR Not Detected (Not Detect); Staphylococcus aureus by PCR Not Detected (Not Detect); Staphylococcus by PCR DETECTED (Not Detect); Streptococcus agalactiae(B)PCR Not Detected (Not Detect); Streptococcus by PCR Not Detected (Not Detect); Streptococcus pneumoniae PCR Not Detected (Not Detect); Streptococcus pyogenes (A) PCR Not Detected (Not Detect); mecA Methicillin-Resist Gene Not Detected (Not Detect)
[2021-07-07] MEDS: Tiotropium 10 INH DOSE IH SCH ×2 (08:15→08:16)
[2021-07-07] MEDS: FLUTICASONE PROPION IH SCH ×2 (08:24→19:42)
[2021-07-07] MEDS: SALMETEROL IH SCH ×2 (08:24→19:42)
[2021-07-07] MEDS ORDERED: Lidocaine Viscous Oral Soln 15 ML SOLUTION MM PRN (08:25)
[2021-07-07] MEDS: Insulin LISPRO 300 UNITS/3 ML VIAL SUBQ SCH ×4 (08:29→21:29)
[2021-07-07] MEDS ORDERED: *HR* Midazolam HCl 5 MG/5 ML VIAL IVP PRN (08:29)
[2021-07-07] MEDS: 0.9 % Sodium Chloride 1,000 ML IVC SCH ×2 (08:38→14:18)
[2021-07-07] MEDS: Pregabalin 50 MG CAPSULE PO SCH ×3 (09:00→21:31)
[2021-07-07] MEDS: Ascorbic Acid 500 MG TABLET PO SCH ×2 (09:00→14:19)
[2021-07-07] MEDS: (Ipratropium Bromide 15 ML Spray) NS SCH ×2 (09:00→21:39)
[2021-07-07] MEDS: 0.9 % Sodium Chloride 500 ML IVC SCH (09:00)
[2021-07-07] MEDS: Apixaban 5 MG TABLET PO SCH ×3 (09:00→21:31)
[2021-07-07] MEDS: Artificial Tears SOLN 15 ML BOTTLE BOTH EYES SCH ×3 (09:00→21:33)
[2021-07-07] MEDS: Lactulose Oral Soln 20 GM/30 ML UDC PO SCH ×3 (09:00→21:30)
[2021-07-07] MEDS: Metoprolol XL (24 HR) Succ 50 MG TAB.ER.24H PO SCH ×2 (09:00→21:31)
[2021-07-07] MEDS: Vitamin E 200 UNIT (90MG) CAPSULE PO SCH ×2 (09:00→14:19)
[2021-07-07] MEDS: Fluticasone Propionate Nasal 50 MCG/SPRAY BOTTLE NS SCH (09:00)
[2021-07-07] MEDS: *HR* Midazolam HCl 5 MG/5 ML VIAL IVP PRN ×2 (09:40→09:50)
[2021-07-07] MEDS: *HR* FentaNYL (PF) 100 MCG/2 ML VIAL IVP PRN ×2 (09:40→09:50)
[2021-07-07] MEDS ORDERED: *HR* FentaNYL (PF) 100 MCG/2 ML VIAL ONE (12:41)
[2021-07-07] MEDS ORDERED: *HR* Midazolam HCl 2 MG/2 ML VIAL ONE ×2 (12:41→13:16)
[2021-07-07] MEDS ORDERED: Clindamycin 600 MG/50 ML 600 MG/50 ML IV.SOLN IVPB ONE ×2 (12:42→13:27)
[2021-07-07] MEDS ORDERED: 0.9 % Sodium Chloride 500 ML ONE ×2 (12:42→13:27)
[2021-07-07] MEDS ORDERED: 0.9 % Sodium Chloride 1,000 ML ONE (12:42)
[2021-07-07] MEDS: Cholecalciferol (D-3) 1,000 UNIT (25MCG) TABLET PO SCH (16:29)
[2021-07-07] MEDS: ZINC GLUCONATE 50 MG PO SCH (16:30)
[2021-07-07] MEDS: (Fish Oil 1,000 Mg Softgel) PO SCH (16:30)
[2021-07-07] MEDS: Melatonin 3 MG TABLET PO SCH (21:31)
[2021-07-07] MEDS: Lacri-Lube 3.5 GM TUBE BOTH EYES SCH (21:34)
[2021-07-08] MEDS: 0.9 % Sodium Chloride 500 ML IVC SCH ×2 (01:32→20:33)
[2021-07-08] MEDS: Cefepime HCl 2,000 MG in 0.9 % Sodium Chloride Mini Bag 100 ML IVP SCH ×2 (01:54→14:05)
[2021-07-08] MEDS: SALMETEROL IH SCH ×2 (08:06→19:58)
[2021-07-08] MEDS: FLUTICASONE PROPION IH SCH ×2 (08:06→19:58)
[2021-07-08] MEDS: Ascorbic Acid 500 MG TABLET PO SCH (08:12)
[2021-07-08] MEDS: Pregabalin 50 MG CAPSULE PO SCH ×3 (08:12→19:46)
[2021-07-08] MEDS: Vitamin E 200 UNIT (90MG) CAPSULE PO SCH (08:12)
[2021-07-08] MEDS: (Ipratropium Bromide 15 ML Spray) NS SCH ×2 (08:12→19:47)
[2021-07-08] MEDS: Metoprolol XL (24 HR) Succ 50 MG TAB.ER.24H PO SCH ×2 (08:12→19:47)
[2021-07-08] MEDS: Apixaban 5 MG TABLET PO SCH ×2 (08:12→19:47)
[2021-07-08] MEDS: Fluticasone Propionate Nasal 50 MCG/SPRAY BOTTLE NS SCH (08:13)
[2021-07-08] MEDS: Insulin LISPRO 300 UNITS/3 ML VIAL SUBQ SCH ×4 (08:17→20:22)
[2021-07-08] MEDS: Artificial Tears SOLN 15 ML BOTTLE BOTH EYES SCH ×3 (08:17→19:45)
[2021-07-08] MEDS: Lactulose Oral Soln 20 GM/30 ML UDC PO SCH ×2 (08:18→19:46)
[2021-07-08 12:01] LABS: Hematocrit 34.1 % (37.5-50.1); Hemoglobin 10.9 g/dL (12.9-16.9); Immature Granulocytes % 0.9 % (0-4); Lymphocytes % 12.7 %; Mean Corpuscular Hemoglobin 27.8 pg (28.0-33.3); Mean Platelet Volume 10.4 fL (9.4-12.4); Platelet Count 219 K/mcL (140-400); Red Blood Count 3.92 M/mcL (4.19-5.50); Segmented Neutrophils % 70.6 %; White Blood Count 5.8 K/mcL (4.3-11.1)
[2021-07-08 12:02] LABS: Basophils % 0.5 %; Eosinophils # 0.4 K/mcL (0.0-0.6); Eosinophils % 7.3 %; Lymphocytes # 0.7 K/mcL (0.6-4.6); Monocytes # 0.5 K/mcL (0.0-1.3); Neutrophils # 4.1 K/mcL (1.6-8.9)
[2021-07-08 13:09] LABS: Alanine Aminotransferase 38 Units/L (7-52); Albumin 2.8 g/dL (3.5-5.7); Albumin/Globulin Ratio 1.1 (1.1-2.2); Alkaline Phosphatase 118 Units/L (34-104); Aspartate Amino Transferase 51 Units/L (13-39); BUN/Creatinine Ratio 19 (6-26); Bilirubin,Total 1.2 mg/dL (0.3-1.0); Blood Urea Nitrogen 26 mg/dL (8-23); Calcium 8.4 mg/dL (8.6-10.3); Carbon Dioxide 21 mEq/L (23-29); Chloride 104 mEq/L (98-107); Globulin 2.6 g/dL (2.4-3.5); Glucose 147 mg/dL (70-105); Osmolality,Calculated 281 (280-300); Potassium 4.3 mEq/L (3.5-5.1); Sodium 132 mEq/L (136-145); Total Protein 5.4 g/dL (6.4-8.9); eGFR For African Americans > 60 (> 60); eGFR For Non-African Americans 52 (> 60)
[2021-07-08] MEDS ORDERED: Acetaminophen 325 MG TABLET PO ONE (16:42)
[2021-07-08] MEDS: (Fish Oil 1,000 Mg Softgel) PO SCH (17:13)
[2021-07-08] MEDS: ZINC GLUCONATE 50 MG PO SCH (17:13)
[2021-07-08] MEDS: Cholecalciferol (D-3) 1,000 UNIT (25MCG) TABLET PO SCH (17:13)
[2021-07-08] MEDS: Lacri-Lube 3.5 GM TUBE BOTH EYES SCH (19:46)
[2021-07-08] MEDS: Melatonin 3 MG TABLET PO SCH (19:47)
[2021-07-08] MEDS ORDERED: *HR* Labetalol 20 MG/4 ML SYRINGE IVP ONE (23:36)
[2021-07-09] MEDS: 0.9 % Sodium Chloride 1,000 ML IVC SCH ×2 (02:19→09:43)
[2021-07-09] MEDS: Cefepime HCl 2,000 MG in 0.9 % Sodium Chloride Mini Bag 100 ML IVP SCH ×2 (02:20→15:16)
[2021-07-09 02:51] LABS: Basophils % 0.5 %; Eosinophils # 0.4 K/mcL (0.0-0.6); Eosinophils % 7.2 %; Hematocrit 33.3 % (37.5-50.1); Hemoglobin 10.5 g/dL (12.9-16.9); Immature Granulocytes % 1.3 % (0-4); Lymphocytes # 0.8 K/mcL (0.6-4.6); Mean Corpuscular HGB Conc 31.5 g/dL (31.6-35.5); Mean Corpuscular Hemoglobin 27.3 pg (28.0-33.3); Mean Corpuscular Volume 86.5 fL (83.0-100.0); Mean Platelet Volume 10.4 fL (9.4-12.4); Monocytes # 0.4 K/mcL (0.0-1.3); Monocytes % 7.2 %; Neutrophils # 3.8 K/mcL (1.6-8.9); Platelet Count 218 K/mcL (140-400); Red Blood Count 3.85 M/mcL (4.19-5.50); Red Cell Distribution Width 15.9 % (11.5-14.5); Segmented Neutrophils % 68.8 %; White Blood Count 5.5 K/mcL (4.3-11.1)
[2021-07-09 03:07] LABS: Alanine Aminotransferase 37 Units/L (7-52); Albumin 2.8 g/dL (3.5-5.7); Albumin/Globulin Ratio 1.1 (1.1-2.2); Alkaline Phosphatase 110 Units/L (34-104); Aspartate Amino Transferase 39 Units/L (13-39); BUN/Creatinine Ratio 18 (6-26); Bilirubin,Total 0.9 mg/dL (0.3-1.0); Blood Urea Nitrogen 24 mg/dL (8-23); Calcium 8.2 mg/dL (8.6-10.3); Carbon Dioxide 22 mEq/L (23-29); Chloride 106 mEq/L (98-107); Globulin 2.6 g/dL (2.4-3.5); Glucose 134 mg/dL (70-105); Magnesium 1.9 mg/dL (1.6-2.6); Osmolality,Calculated 286 (280-300); Sodium 135 mEq/L (136-145); Total Protein 5.4 g/dL (6.4-8.9); eGFR For African Americans > 60 (> 60); eGFR For Non-African Americans 51 (> 60)
[2021-07-09] MEDS: FLUTICASONE PROPION IH SCH ×2 (07:50→20:01)
[2021-07-09] MEDS: Tiotropium 10 INH DOSE IH SCH (07:50)
[2021-07-09] MEDS: SALMETEROL IH SCH ×2 (07:50→20:01)
[2021-07-09] MEDS: Insulin LISPRO 300 UNITS/3 ML VIAL SUBQ SCH ×4 (09:37→21:32)
[2021-07-09] MEDS: Ascorbic Acid 500 MG TABLET PO SCH (09:40)
[2021-07-09] MEDS: Lactulose Oral Soln 20 GM/30 ML UDC PO SCH ×2 (09:40→21:31)
[2021-07-09] MEDS: Artificial Tears SOLN 15 ML BOTTLE BOTH EYES SCH ×3 (09:40→21:32)
[2021-07-09] MEDS: Metoprolol XL (24 HR) Succ 50 MG TAB.ER.24H PO SCH ×2 (09:41→21:31)
[2021-07-09] MEDS: Pregabalin 50 MG CAPSULE PO SCH ×3 (09:41→21:32)
[2021-07-09] MEDS: Vitamin E 200 UNIT (90MG) CAPSULE PO SCH (09:41)
[2021-07-09] MEDS: Apixaban 5 MG TABLET PO SCH ×2 (09:41→21:31)
[2021-07-09] MEDS: (Ipratropium Bromide 15 ML Spray) NS SCH ×2 (09:42→21:33)
[2021-07-09] MEDS: Fluticasone Propionate Nasal 50 MCG/SPRAY BOTTLE NS SCH (09:49)
[2021-07-09] MEDS: Furosemide 20 MG TABLET PO SCH (10:47)
[2021-07-09 10:49] LABS: Thyroid Stimulating Hormone 1.365 mcIU/mL (0.340-5.600)
[2021-07-09] MEDS: *HR* Metoprolol 5 MG/5 ML VIAL IVP PRN (13:43)
[2021-07-09] MEDS ORDERED: Calcium Gluconate 1gm/50mL 1 GM/50 ML BAG IVPB ONE (14:18)
[2021-07-09] MEDS: (Fish Oil 1,000 Mg Softgel) PO SCH (18:01)
[2021-07-09] MEDS: Cholecalciferol (D-3) 1,000 UNIT (25MCG) TABLET PO SCH (18:01)
[2021-07-09] MEDS: ZINC GLUCONATE 50 MG PO SCH (18:01)
[2021-07-09] MEDS: Melatonin 3 MG TABLET PO SCH (21:31)
[2021-07-09] MEDS: Lacri-Lube 3.5 GM TUBE BOTH EYES SCH (21:32)
[2021-07-10] MEDS ORDERED: MOM Conc 10 ML UD.LIQ PO PRN (03:42)
[2021-07-10 06:17] LABS: Basophils # 0.1 K/mcL (0.0-0.2); Basophils % 0.8 %; Eosinophils # 0.4 K/mcL (0.0-0.6); Eosinophils % 6.8 %; Hematocrit 36.1 % (37.5-50.1); Hemoglobin 11.6 g/dL (12.9-16.9); Immature Granulocytes % 2.5 % (0-4); Lymphocytes # 1.1 K/mcL (0.6-4.6); Lymphocytes % 16.6 %; Mean Corpuscular HGB Conc 32.1 g/dL (31.6-35.5); Mean Corpuscular Hemoglobin 27.6 pg (28.0-33.3); Mean Platelet Volume 10.2 fL (9.4-12.4); Monocytes # 0.5 K/mcL (0.0-1.3); Monocytes % 7.4 %; Neutrophils # 4.2 K/mcL (1.6-8.9); Platelet Count 283 K/mcL (140-400); Red Cell Distribution Width 15.9 % (11.5-14.5); Segmented Neutrophils % 65.9 %; White Blood Count 6.3 K/mcL (4.3-11.1)
[2021-07-10 06:40] LABS: Alanine Aminotransferase 35 Units/L (7-52); Albumin/Globulin Ratio 1.2 (1.1-2.2); Alkaline Phosphatase 142 Units/L (34-104); Aspartate Amino Transferase 32 Units/L (13-39); BUN/Creatinine Ratio 16 (6-26); Blood Urea Nitrogen 21 mg/dL (8-23); Calcium 8.5 mg/dL (8.6-10.3); Carbon Dioxide 26 mEq/L (23-29); Chloride 103 mEq/L (98-107); Globulin 2.6 g/dL (2.4-3.5); Glucose 151 mg/dL (70-105); Osmolality,Calculated 286 (280-300); Potassium 3.7 mEq/L (3.5-5.1); Sodium 135 mEq/L (136-145); Total Protein 5.6 g/dL (6.4-8.9); eGFR For African Americans > 60 (> 60); eGFR For Non-African Americans 52 (> 60)
[2021-07-10] MEDS: Lactulose Oral Soln 20 GM/30 ML UDC PO SCH ×2 (07:54→20:44)
[2021-07-10] MEDS: *HR* Metoprolol 5 MG/5 ML VIAL IVP PRN (07:54)
[2021-07-10] MEDS: Ascorbic Acid 500 MG TABLET PO SCH (07:54)
[2021-07-10] MEDS: Metoprolol XL (24 HR) Succ 50 MG TAB.ER.24H PO SCH ×2 (07:55→20:45)
[2021-07-10] MEDS: Apixaban 5 MG TABLET PO SCH ×2 (07:55→20:43)
[2021-07-10] MEDS: Furosemide 20 MG TABLET PO SCH (07:55)
[2021-07-10] MEDS: Pregabalin 50 MG CAPSULE PO SCH ×3 (07:55→20:44)
[2021-07-10] MEDS: Vitamin E 200 UNIT (90MG) CAPSULE PO SCH (07:55)
[2021-07-10] MEDS: (Ipratropium Bromide 15 ML Spray) NS SCH (07:56)
[2021-07-10] MEDS: cefTRIAXone 2,000 MG in 0.9 % Sodium Chloride Mini Bag 100 ML IVPB SCH (07:56)
[2021-07-10] MEDS: Artificial Tears SOLN 15 ML BOTTLE BOTH EYES SCH ×3 (07:58→20:51)
[2021-07-10] MEDS: Insulin LISPRO 300 UNITS/3 ML VIAL SUBQ SCH ×4 (07:58→20:34)
[2021-07-10] MEDS: Tiotropium 10 INH DOSE IH SCH (08:10)
[2021-07-10] MEDS: SALMETEROL IH SCH (08:10)
[2021-07-10] MEDS: FLUTICASONE PROPION IH SCH (08:10)
[2021-07-10] MEDS: Fluticasone Propionate Nasal 50 MCG/SPRAY BOTTLE NS SCH (11:27)
[2021-07-10] MEDS: polyethylene glycoL 3350 17 GM POWD.PACK PO SCH (11:33)
[2021-07-10] MEDS: Budesonide/Formoterol 160/4.5 1 PUFF INH IH SCH ×2 (11:54→20:02)
[2021-07-10] MEDS: Cholecalciferol (D-3) 1,000 UNIT (25MCG) TABLET PO SCH (17:17)
[2021-07-10] MEDS: Melatonin 3 MG TABLET PO SCH (20:44)
[2021-07-10] MEDS: Lacri-Lube 3.5 GM TUBE BOTH EYES SCH (23:06)
[2021-07-11 05:15] LABS: Basophils % 0.7 %; Eosinophils # 0.4 K/mcL (0.0-0.6); Eosinophils % 7.2 %; Hematocrit 35.5 % (37.5-50.1); Hemoglobin 11.1 g/dL (12.9-16.9); Immature Granulocytes % 3.4 % (0-4); Lymphocytes # 1.1 K/mcL (0.6-4.6); Lymphocytes % 19.1 %; Mean Corpuscular HGB Conc 31.3 g/dL (31.6-35.5); Mean Corpuscular Hemoglobin 26.7 pg (28.0-33.3); Mean Corpuscular Volume 85.3 fL (83.0-100.0); Monocytes # 0.5 K/mcL (0.0-1.3); Neutrophils # 3.5 K/mcL (1.6-8.9); Platelet Count 284 K/mcL (140-400); Red Blood Count 4.16 M/mcL (4.19-5.50); Red Cell Distribution Width 15.9 % (11.5-14.5); Segmented Neutrophils % 61.6 %; White Blood Count 5.7 K/mcL (4.3-11.1)
[2021-07-11 05:35] LABS: BUN/Creatinine Ratio 13 (6-26); Blood Urea Nitrogen 18 mg/dL (8-23); Calcium 8.5 mg/dL (8.6-10.3); Carbon Dioxide 27 mEq/L (23-29); Chloride 101 mEq/L (98-107); Glucose 142 mg/dL (70-105); Magnesium 2.1 mg/dL (1.6-2.6); Osmolality,Calculated 284 (280-300); Phosphorous 2.7 mg/dL (2.7-4.5); Potassium 3.8 mEq/L (3.5-5.1); Sodium 135 mEq/L (136-145); eGFR For African Americans > 60 (> 60); eGFR For Non-African Americans 52 (> 60)
[2021-07-11] MEDS: Budesonide/Formoterol 160/4.5 1 PUFF INH IH SCH ×2 (07:25→21:05)
[2021-07-11] MEDS: Tiotropium 10 INH DOSE IH SCH (07:26)
[2021-07-11] MEDS: cefTRIAXone 2,000 MG in 0.9 % Sodium Chloride Mini Bag 100 ML IVPB SCH (07:52)
[2021-07-11] MEDS: Fluticasone Propionate Nasal 50 MCG/SPRAY BOTTLE NS SCH (07:53)
[2021-07-11] MEDS: Artificial Tears SOLN 15 ML BOTTLE BOTH EYES SCH ×3 (07:53→20:58)
[2021-07-11] MEDS: Insulin LISPRO 300 UNITS/3 ML VIAL SUBQ SCH ×4 (07:53→20:59)
[2021-07-11] MEDS: Furosemide 20 MG TABLET PO SCH (07:54)
[2021-07-11] MEDS: Lactulose Oral Soln 20 GM/30 ML UDC PO SCH ×2 (07:54→20:59)
[2021-07-11] MEDS: Pregabalin 50 MG CAPSULE PO SCH ×3 (07:54→20:58)
[2021-07-11] MEDS: Metoprolol XL (24 HR) Succ 50 MG TAB.ER.24H PO SCH ×2 (07:54→20:58)
[2021-07-11] MEDS: Vitamin E 200 UNIT (90MG) CAPSULE PO SCH (07:55)
[2021-07-11] MEDS: Apixaban 5 MG TABLET PO SCH ×2 (07:55→20:58)
[2021-07-11] MEDS: Ascorbic Acid 500 MG TABLET PO SCH (07:55)
[2021-07-11] MEDS: polyethylene glycoL 3350 17 GM POWD.PACK PO SCH (07:55)
[2021-07-11] MEDS: Cholecalciferol (D-3) 1,000 UNIT (25MCG) TABLET PO SCH (16:54)
[2021-07-11 17:54] LABS: Adenovirus Not Detected (Not Detect); Bordetella Pertussis Not Detected (Not Detect); Chlamydophila pneumoniae Not Detected (Not Detect); Coronavirus 229E Not Detected (Not Detect); Coronavirus HKU1 Not Detected (Not Detect); Coronavirus NL63 Not Detected (Not Detect); Coronavirus OC43 Not Detected (Not Detect); Human Metapneumovirus Not Detected (Not Detect); Human Rhinovirus/Enterovirus Not Detected (Not Detect); Influenza A Subtype 2009 H1 Not Detected (Not Detect); Influenza B Not Detected (Not Detect); Mycoplasma pneumoniae Not Detected (Not Detect); Parainfluenza Virus 1 Not Detected (Not Detect); Parainfluenza Virus 2 Not Detected (Not Detect); Parainfluenza Virus 3 Not Detected (Not Detect); Parainfluenza Virus 4 Not Detected (Not Detect); Respiratory Syncytial Virus Not Detected (Not Detect); SARS-CoV-2 Not Detected (Not Detect)
[2021-07-11] MEDS: Melatonin 3 MG TABLET PO SCH (20:57)
[2021-07-11] MEDS: Lacri-Lube 3.5 GM TUBE BOTH EYES SCH (20:59)
[2021-07-12 06:04] LABS: BUN/Creatinine Ratio 16 (6-26); Blood Urea Nitrogen 19 mg/dL (8-23); Calcium 8.7 mg/dL (8.6-10.3); Carbon Dioxide 26 mEq/L (23-29); Chloride 101 mEq/L (98-107); Glucose 161 mg/dL (70-105); Magnesium 2.1 mg/dL (1.6-2.6); Osmolality,Calculated 288 (280-300); Sodium 136 mEq/L (136-145); eGFR For African Americans > 60 (> 60); eGFR For Non-African Americans 58 (> 60)
[2021-07-12 06:05] LABS: Basophils # 0.1 K/mcL (0.0-0.2); Basophils % 0.8 %; Eosinophils # 0.4 K/mcL (0.0-0.6); Eosinophils % 6.3 %; Hematocrit 35.6 % (37.5-50.1); Hemoglobin 11.2 g/dL (12.9-16.9); Immature Granulocytes % 2.6 % (0-4); Lymphocytes # 1.3 K/mcL (0.6-4.6); Mean Corpuscular HGB Conc 31.5 g/dL (31.6-35.5); Mean Corpuscular Hemoglobin 26.8 pg (28.0-33.3); Mean Corpuscular Volume 85.2 fL (83.0-100.0); Mean Platelet Volume 10.2 fL (9.4-12.4); Monocytes # 0.5 K/mcL (0.0-1.3); Monocytes % 7.9 %; Neutrophils # 3.7 K/mcL (1.6-8.9); Platelet Count 323 K/mcL (140-400); Red Blood Count 4.18 M/mcL (4.19-5.50); Segmented Neutrophils % 61.4 %
[2021-07-12] MEDS: Vitamin E 200 UNIT (90MG) CAPSULE PO SCH (07:48)
[2021-07-12] MEDS: Lactulose Oral Soln 20 GM/30 ML UDC PO SCH ×2 (07:49→19:59)
[2021-07-12] MEDS: Apixaban 5 MG TABLET PO SCH ×2 (07:49→19:59)
[2021-07-12] MEDS: polyethylene glycoL 3350 17 GM POWD.PACK PO SCH (07:49)
[2021-07-12] MEDS: Fluticasone Propionate Nasal 50 MCG/SPRAY BOTTLE NS SCH (07:49)
[2021-07-12] MEDS: Furosemide 20 MG TABLET PO SCH (07:49)
[2021-07-12] MEDS: Pregabalin 50 MG CAPSULE PO SCH ×3 (07:49→19:59)
[2021-07-12] MEDS: Ascorbic Acid 500 MG TABLET PO SCH (07:49)
[2021-07-12] MEDS: Artificial Tears SOLN 15 ML BOTTLE BOTH EYES SCH ×3 (07:50→19:58)
[2021-07-12] MEDS: Insulin LISPRO 300 UNITS/3 ML VIAL SUBQ SCH ×4 (07:53→20:00)
[2021-07-12] MEDS: cefTRIAXone 2,000 MG in 0.9 % Sodium Chloride Mini Bag 100 ML IVPB SCH (07:53)
[2021-07-12] MEDS: Metoprolol XL (24 HR) Succ 50 MG TAB.ER.24H PO SCH ×2 (07:54→19:59)
[2021-07-12] MEDS: Budesonide/Formoterol 160/4.5 1 PUFF INH IH SCH ×2 (08:06→20:02)
[2021-07-12] MEDS: Tiotropium 10 INH DOSE IH SCH (08:06)
[2021-07-12] MEDS: Cholecalciferol (D-3) 1,000 UNIT (25MCG) TABLET PO SCH (17:14)
[2021-07-12] MEDS: Melatonin 3 MG TABLET PO SCH (19:59)
[2021-07-12] MEDS: Lacri-Lube 3.5 GM TUBE BOTH EYES SCH (20:00)
[2021-07-13 07:40] LABS: Adenovirus Not Detected (Not Detect); Bordetella Pertussis Not Detected (Not Detect); Chlamydophila pneumoniae Not Detected (Not Detect); Coronavirus 229E Not Detected (Not Detect); Coronavirus HKU1 Not Detected (Not Detect); Coronavirus NL63 Not Detected (Not Detect); Coronavirus OC43 Not Detected (Not Detect); Human Metapneumovirus Not Detected (Not Detect); Human Rhinovirus/Enterovirus Not Detected (Not Detect); Influenza A Subtype 2009 H1 Not Detected (Not Detect); Influenza B Not Detected (Not Detect); Mycoplasma pneumoniae Not Detected (Not Detect); Parainfluenza Virus 1 Not Detected (Not Detect); Parainfluenza Virus 2 Not Detected (Not Detect); Parainfluenza Virus 3 Not Detected (Not Detect); Parainfluenza Virus 4 Not Detected (Not Detect); Respiratory Syncytial Virus Not Detected (Not Detect); SARS-CoV-2 Not Detected (Not Detect)
[2021-07-13 07:59] LABS: Basophils # 0.1 K/mcL (0.0-0.2); Basophils % 0.8 %; Eosinophils # 0.4 K/mcL (0.0-0.6); Hematocrit 35.6 % (37.5-50.1); Hemoglobin 11.5 g/dL (12.9-16.9); Lymphocytes # 1.3 K/mcL (0.6-4.6); Lymphocytes % 21.5 %; Mean Corpuscular HGB Conc 32.3 g/dL (31.6-35.5); Mean Corpuscular Hemoglobin 27.8 pg (28.0-33.3); Mean Platelet Volume 10.2 fL (9.4-12.4); Monocytes # 0.5 K/mcL (0.0-1.3); Monocytes % 7.5 %; Neutrophils # 3.6 K/mcL (1.6-8.9); Platelet Count 325 K/mcL (140-400); Red Blood Count 4.14 M/mcL (4.19-5.50); Segmented Neutrophils % 60.2 %
[2021-07-13 08:11] LABS: BUN/Creatinine Ratio 15 (6-26); Blood Urea Nitrogen 18 mg/dL (8-23); Calcium 8.7 mg/dL (8.6-10.3); Carbon Dioxide 27 mEq/L (23-29); Chloride 100 mEq/L (98-107); Glucose 173 mg/dL (70-105); Magnesium 2.1 mg/dL (1.6-2.6); Osmolality,Calculated 286 (280-300); Phosphorous 3.1 mg/dL (2.7-4.5); Potassium 3.9 mEq/L (3.5-5.1); Sodium 135 mEq/L (136-145); eGFR For African Americans > 60 (> 60); eGFR For Non-African Americans 60 (> 60)
[2021-07-13] MEDS: Tiotropium 10 INH DOSE IH SCH (08:28)
[2021-07-13] MEDS: Budesonide/Formoterol 160/4.5 1 PUFF INH IH SCH ×2 (08:28→22:08)
[2021-07-13] MEDS: Apixaban 5 MG TABLET PO SCH ×2 (10:09→20:53)
[2021-07-13] MEDS: Pregabalin 50 MG CAPSULE PO SCH ×3 (10:09→20:53)
[2021-07-13] MEDS: Fluticasone Propionate Nasal 50 MCG/SPRAY BOTTLE NS SCH (10:10)
[2021-07-13] MEDS: Vitamin E 200 UNIT (90MG) CAPSULE PO SCH (10:10)
[2021-07-13] MEDS: Metoprolol XL (24 HR) Succ 50 MG TAB.ER.24H PO SCH ×2 (10:10→20:53)
[2021-07-13] MEDS: Furosemide 20 MG TABLET PO SCH (10:10)
[2021-07-13] MEDS: Ascorbic Acid 500 MG TABLET PO SCH (10:10)
[2021-07-13] MEDS: Lactulose Oral Soln 20 GM/30 ML UDC PO SCH ×2 (10:11→20:54)
[2021-07-13] MEDS: Artificial Tears SOLN 15 ML BOTTLE BOTH EYES SCH ×3 (10:11→20:54)
[2021-07-13] MEDS: polyethylene glycoL 3350 17 GM POWD.PACK PO SCH ×2 (10:11→14:41)
[2021-07-13] MEDS: cefTRIAXone 2,000 MG in 0.9 % Sodium Chloride Mini Bag 100 ML IVPB SCH (10:11)
[2021-07-13] MEDS: Insulin LISPRO 300 UNITS/3 ML VIAL SUBQ SCH ×4 (10:14→20:54)
[2021-07-13] MEDS: Cholecalciferol (D-3) 1,000 UNIT (25MCG) TABLET PO SCH (16:56)
[2021-07-13] MEDS: Melatonin 3 MG TABLET PO SCH (20:53)
[2021-07-13] MEDS: Lacri-Lube 3.5 GM TUBE BOTH EYES SCH (20:53)
[2021-07-14 04:51] LABS: Basophils # 0.1 K/mcL (0.0-0.2); Eosinophils # 0.3 K/mcL (0.0-0.6); Eosinophils % 4.7 %; Hematocrit 36.7 % (37.5-50.1); Hemoglobin 11.3 g/dL (12.9-16.9); Immature Granulocytes % 2.8 % (0-4); Lymphocytes # 1.3 K/mcL (0.6-4.6); Lymphocytes % 20.5 %; Mean Corpuscular HGB Conc 30.8 g/dL (31.6-35.5); Mean Corpuscular Hemoglobin 26.8 pg (28.0-33.3); Mean Corpuscular Volume 87.2 fL (83.0-100.0); Mean Platelet Volume 10.1 fL (9.4-12.4); Monocytes # 0.5 K/mcL (0.0-1.3); Monocytes % 7.8 %; Neutrophils # 3.9 K/mcL (1.6-8.9); Platelet Count 297 K/mcL (140-400); Red Blood Count 4.21 M/mcL (4.19-5.50); Red Cell Distribution Width 15.8 % (11.5-14.5); Segmented Neutrophils % 63.2 %; White Blood Count 6.2 K/mcL (4.3-11.1)
[2021-07-14 05:11] LABS: BUN/Creatinine Ratio 15 (6-26); Blood Urea Nitrogen 17 mg/dL (8-23); Calcium 8.9 mg/dL (8.6-10.3); Carbon Dioxide 29 mEq/L (23-29); Chloride 100 mEq/L (98-107); Glucose 177 mg/dL (70-105); Osmolality,Calculated 286 (280-300); Phosphorous 3.3 mg/dL (2.7-4.5); Potassium 4.1 mEq/L (3.5-5.1); Sodium 135 mEq/L (136-145); eGFR For African Americans > 60 (> 60); eGFR For Non-African Americans > 60 (> 60)
[2021-07-14] MEDS: Budesonide/Formoterol 160/4.5 1 PUFF INH IH SCH ×2 (07:35→23:26)
[2021-07-14] MEDS: Tiotropium 10 INH DOSE IH SCH (07:36)
[2021-07-14] MEDS: Insulin LISPRO 300 UNITS/3 ML VIAL SUBQ SCH ×4 (09:15→20:00)
[2021-07-14] MEDS: Pregabalin 50 MG CAPSULE PO SCH ×3 (09:16→19:53)
[2021-07-14] MEDS: Vitamin E 200 UNIT (90MG) CAPSULE PO SCH (09:16)
[2021-07-14] MEDS: Ascorbic Acid 500 MG TABLET PO SCH (09:17)
[2021-07-14] MEDS: Furosemide 20 MG TABLET PO SCH (09:18)
[2021-07-14] MEDS: Lactulose Oral Soln 20 GM/30 ML UDC PO SCH ×2 (09:18→19:56)
[2021-07-14] MEDS: Apixaban 5 MG TABLET PO SCH ×2 (09:19→19:54)
[2021-07-14] MEDS: Metoprolol XL (24 HR) Succ 50 MG TAB.ER.24H PO SCH ×2 (09:19→19:54)
[2021-07-14] MEDS: polyethylene glycoL 3350 17 GM POWD.PACK PO SCH (09:19)
[2021-07-14] MEDS: cefTRIAXone 2,000 MG in 0.9 % Sodium Chloride Mini Bag 100 ML IVPB SCH (09:20)
[2021-07-14] MEDS: Artificial Tears SOLN 15 ML BOTTLE BOTH EYES SCH ×3 (09:20→19:55)
[2021-07-14] MEDS: Fluticasone Propionate Nasal 50 MCG/SPRAY BOTTLE NS SCH (09:20)
[2021-07-14] MEDS: Cholecalciferol (D-3) 1,000 UNIT (25MCG) TABLET PO SCH (16:59)
[2021-07-14] MEDS: Melatonin 3 MG TABLET PO SCH (19:54)
[2021-07-14] MEDS: Lacri-Lube 3.5 GM TUBE BOTH EYES SCH (20:00)
[2021-07-15 01:47] LABS: Basophils # 0.1 K/mcL (0.0-0.2); Basophils % 1.3 %; Eosinophils # 0.3 K/mcL (0.0-0.6); Eosinophils % 3.9 %; Hematocrit 37.1 % (37.5-50.1); Hemoglobin 11.4 g/dL (12.9-16.9); Immature Granulocytes % 2.4 % (0-4); Lymphocytes # 1.4 K/mcL (0.6-4.6); Lymphocytes % 21.5 %; Mean Corpuscular HGB Conc 30.7 g/dL (31.6-35.5); Mean Corpuscular Hemoglobin 26.5 pg (28.0-33.3); Mean Corpuscular Volume 86.3 fL (83.0-100.0); Mean Platelet Volume 9.8 fL (9.4-12.4); Monocytes # 0.5 K/mcL (0.0-1.3); Monocytes % 8.2 %; Platelet Count 284 K/mcL (140-400); Red Cell Distribution Width 16.1 % (11.5-14.5); Segmented Neutrophils % 62.7 %; White Blood Count 6.3 K/mcL (4.3-11.1)
[2021-07-15 02:09] LABS: BUN/Creatinine Ratio 16 (6-26); Blood Urea Nitrogen 17 mg/dL (8-23); Calcium 8.8 mg/dL (8.6-10.3); Carbon Dioxide 27 mEq/L (23-29); Chloride 100 mEq/L (98-107); Glucose 165 mg/dL (70-105); Magnesium 1.9 mg/dL (1.6-2.6); Osmolality,Calculated 285 (280-300); Phosphorous 3.6 mg/dL (2.7-4.5); Sodium 135 mEq/L (136-145); eGFR For African Americans > 60 (> 60); eGFR For Non-African Americans > 60 (> 60)
[2021-07-15] MEDS: Vitamin E 200 UNIT (90MG) CAPSULE PO SCH (08:26)
[2021-07-15] MEDS: Ascorbic Acid 500 MG TABLET PO SCH (08:26)
[2021-07-15] MEDS: Pregabalin 50 MG CAPSULE PO SCH ×3 (08:26→20:05)
[2021-07-15] MEDS: Metoprolol XL (24 HR) Succ 50 MG TAB.ER.24H PO SCH ×2 (08:26→20:05)
[2021-07-15] MEDS: Furosemide 20 MG TABLET PO SCH (08:26)
[2021-07-15] MEDS: Lactulose Oral Soln 20 GM/30 ML UDC PO SCH ×2 (08:27→20:05)
[2021-07-15] MEDS: cefTRIAXone 2,000 MG in 0.9 % Sodium Chloride Mini Bag 100 ML IVPB SCH (08:27)
[2021-07-15] MEDS: Apixaban 5 MG TABLET PO SCH ×2 (08:27→20:05)
[2021-07-15] MEDS: polyethylene glycoL 3350 17 GM POWD.PACK PO SCH (08:27)
[2021-07-15] MEDS: Fluticasone Propionate Nasal 50 MCG/SPRAY BOTTLE NS SCH (08:28)
[2021-07-15] MEDS: Artificial Tears SOLN 15 ML BOTTLE BOTH EYES SCH ×3 (08:28→20:06)
[2021-07-15] MEDS: Insulin LISPRO 300 UNITS/3 ML VIAL SUBQ SCH ×4 (08:29→20:07)
[2021-07-15] MEDS: Tiotropium 10 INH DOSE IH SCH (10:17)
[2021-07-15] MEDS: Budesonide/Formoterol 160/4.5 1 PUFF INH IH SCH ×2 (10:19→20:02)
[2021-07-15] MEDS: Cholecalciferol (D-3) 1,000 UNIT (25MCG) TABLET PO SCH (17:00)
[2021-07-15] MEDS: Melatonin 3 MG TABLET PO SCH (20:05)
[2021-07-15] MEDS: Lacri-Lube 3.5 GM TUBE BOTH EYES SCH (21:00)
[2021-07-16] MEDS: Tiotropium 10 INH DOSE IH SCH (07:17)
[2021-07-16] MEDS: Budesonide/Formoterol 160/4.5 1 PUFF INH IH SCH ×2 (07:18→19:58)
[2021-07-16] MEDS: Insulin LISPRO 300 UNITS/3 ML VIAL SUBQ SCH ×4 (08:26→20:04)
[2021-07-16] MEDS: Artificial Tears SOLN 15 ML BOTTLE BOTH EYES SCH ×3 (08:26→19:58)
[2021-07-16] MEDS: Fluticasone Propionate Nasal 50 MCG/SPRAY BOTTLE NS SCH (08:27)
[2021-07-16] MEDS: cefTRIAXone 2,000 MG in 0.9 % Sodium Chloride Mini Bag 100 ML IVPB SCH (08:27)
[2021-07-16] MEDS: Lactulose Oral Soln 20 GM/30 ML UDC PO SCH ×2 (08:27→19:58)
[2021-07-16] MEDS: polyethylene glycoL 3350 17 GM POWD.PACK PO SCH (08:28)
[2021-07-16] MEDS: Insulin DETEMIR 100 UNIT/ML X5UNITS SUBQ SCH ×2 (08:29→19:59)
[2021-07-16] MEDS: Ascorbic Acid 500 MG TABLET PO SCH (08:29)
[2021-07-16] MEDS: Vitamin E 200 UNIT (90MG) CAPSULE PO SCH (08:30)
[2021-07-16] MEDS: Apixaban 5 MG TABLET PO SCH ×2 (08:30→19:58)
[2021-07-16] MEDS: Metoprolol XL (24 HR) Succ 50 MG TAB.ER.24H PO SCH ×2 (08:30→19:58)
[2021-07-16] MEDS: Pregabalin 50 MG CAPSULE PO SCH ×3 (08:30→19:58)
[2021-07-16] MEDS: Furosemide 20 MG TABLET PO SCH (08:30)
[2021-07-16] MEDS: Cholecalciferol (D-3) 1,000 UNIT (25MCG) TABLET PO SCH (17:00)
[2021-07-16] MEDS: Melatonin 3 MG TABLET PO SCH (19:58)
[2021-07-16] MEDS: Lacri-Lube 3.5 GM TUBE BOTH EYES SCH (19:59)
[2021-07-17 05:27] LABS: Hematocrit 37.5 % (37.5-50.1); Hemoglobin 11.8 g/dL (12.9-16.9)
[2021-07-17 05:46] LABS: BUN/Creatinine Ratio 18 (6-26); Blood Urea Nitrogen 19 mg/dL (8-23); Calcium 9.5 mg/dL (8.6-10.3); Carbon Dioxide 29 mEq/L (23-29); Chloride 98 mEq/L (98-107); Glucose 177 mg/dL (70-105); Magnesium 1.9 mg/dL (1.6-2.6); Osmolality,Calculated 289 (280-300); Phosphorous 4.2 mg/dL (2.7-4.5); Potassium 4.3 mEq/L (3.5-5.1); Sodium 136 mEq/L (136-145); eGFR For African Americans > 60 (> 60); eGFR For Non-African Americans > 60 (> 60)
[2021-07-17] MEDS: Tiotropium 10 INH DOSE IH SCH (08:00)
[2021-07-17] MEDS: Budesonide/Formoterol 160/4.5 1 PUFF INH IH SCH (08:00)
[2021-07-17] MEDS: Artificial Tears SOLN 15 ML BOTTLE BOTH EYES SCH ×2 (10:41→14:08)
[2021-07-17] MEDS: cefTRIAXone 2,000 MG in 0.9 % Sodium Chloride Mini Bag 100 ML IVPB SCH (10:41)
[2021-07-17] MEDS: Insulin LISPRO 300 UNITS/3 ML VIAL SUBQ SCH ×2 (10:43→12:01)
[2021-07-17] MEDS: Fluticasone Propionate Nasal 50 MCG/SPRAY BOTTLE NS SCH (10:46)
[2021-07-17] MEDS: Lactulose Oral Soln 20 GM/30 ML UDC PO SCH (10:47)
[2021-07-17] MEDS: Apixaban 5 MG TABLET PO SCH (10:48)
[2021-07-17] MEDS: Vitamin E 200 UNIT (90MG) CAPSULE PO SCH (10:48)
[2021-07-17] MEDS: polyethylene glycoL 3350 17 GM POWD.PACK PO SCH (10:49)
[2021-07-17] MEDS: Metoprolol XL (24 HR) Succ 50 MG TAB.ER.24H PO SCH (10:49)
[2021-07-17] MEDS: Ascorbic Acid 500 MG TABLET PO SCH (10:49)
[2021-07-17] MEDS: Pregabalin 50 MG CAPSULE PO SCH ×2 (10:49→14:08)
[2021-07-17] MEDS: Furosemide 20 MG TABLET PO SCH (10:49)
[2021-07-17] MEDS: Insulin DETEMIR 100 UNIT/ML X5UNITS SUBQ SCH (10:51)
[2021-07-17 11:33] VITALS: TEMP 97.6
[2021-07-17 14:10] VITALS: BP 129/66; PULSE 62; O2SAT 100
== END 2021-07-17 16:31 | DRG 265 ==
LOC: EMEROOARM 16:27 → 3BNU 16:27 → SUATTDRO 22:10 → 3BNU 22:50 → SUATTDRO 07-06 08:09 → 2NENU 07-09 16:41
PROVIDERS: ADMIT Internal Medicine; ATTEND Internal Medicine

== ENCOUNTER 2021-12-22 17:10 | Inpatient (IN) ==
[2021-12-22] MEDS ORDERED: 0.9 % Sodium Chloride 1,000 ML ONE (17:34)
[2021-12-22] MEDS ORDERED: Isovue-370 500 ML BOTTLE IVP ONE (17:35)
[2021-12-22] MEDS ORDERED: Ringers Solution, Lactated 1,000 ML IVC ONE (17:36)
[2021-12-22] MEDS ORDERED: Vancomycin 1,250 MG/262.5 ML IV.SOLN IVPB ONE (17:36)
[2021-12-22] MEDS ORDERED: Cefepime HCl 2,000 MG in 0.9 % Sodium Chloride 10 ML IVP ONE (17:36)
[2021-12-22 17:47] LABS: Hematocrit 31.9 % (37.5-50.1); Hemoglobin 10.5 g/dL (12.9-16.9); Mean Corpuscular HGB Conc 32.9 g/dL (31.6-35.5); Mean Corpuscular Hemoglobin 28.8 pg (28.0-33.3); Mean Corpuscular Volume 87.6 fL (83.0-100.0); Mean Platelet Volume 10.5 fL (9.4-12.4); Platelet Count 236 K/mcL (140-400); Red Blood Count 3.64 M/mcL (4.19-5.50); Red Cell Distribution Width 17.5 % (11.5-14.5); White Blood Count 5.3 K/mcL (4.3-11.1)
[2021-12-22 17:54] LABS: INR 1.8; Prothrombin Time 19.7 Seconds (9.4-12.1)
[2021-12-22 17:57] LABS: Activated Partial Thrombo Time 31.3 Seconds (26.0-36.0)
[2021-12-22 18:09] LABS: Alanine Aminotransferase 24 Units/L (7-52); Albumin 3.6 g/dL (3.5-5.7); Albumin/Globulin Ratio 1.4 (1.1-2.2); Alkaline Phosphatase 137 Units/L (34-104); Aspartate Amino Transferase 28 Units/L (13-39); BUN/Creatinine Ratio 22 (6-26); Bilirubin,Direct 0.2 mg/dL (0.0-0.2); Bilirubin,Indirect 1.1 mg/dL (0.0-1.0); Bilirubin,Total 1.3 mg/dL (0.3-1.0); Blood Urea Nitrogen 43 mg/dL (8-23); Calcium 9.4 mg/dL (8.6-10.3); Carbon Dioxide 19 mEq/L (23-29); Chloride 107 mEq/L (98-107); Creatine Kinase 85 Units/L (30-223); Globulin 2.5 g/dL (2.4-3.5); Glucose 126 mg/dL (70-105); Lipase 31 Units/L (11-82); Magnesium 1.6 mg/dL (1.6-2.6); Osmolality,Calculated 292 (280-300); Phosphorous 3.5 mg/dL (2.7-4.5); Potassium 5.6 mEq/L (3.5-5.1); Sodium 135 mEq/L (136-145); Total Protein 6.1 g/dL (6.4-8.9); eGFR For African Americans 42 (> 60); eGFR For Non-African Americans 34 (> 60)
[2021-12-22 18:10] LABS: Troponin I < 0.03 ng/mL (< 0.04)
[2021-12-22] MEDS ORDERED: 0.9 % Sodium Chloride 1,000 ML IV ONE (19:39)
[2021-12-22 20:17] LABS: Influenza A PCR Negative (Negative); Influenza B PCR Negative (Negative); Resp. Syncytial Virus PCR Negative (Negative)
[2021-12-22 20:18] LABS: SARS-CoV-2 by PCR (In House) Negative (Negative)
[2021-12-22] MEDS ORDERED: Ondansetron 4 MG/2 ML VIAL IVP PRN (20:26)
[2021-12-22] MEDS ORDERED: Acetaminophen 325 MG TABLET PO PRN (20:26)
[2021-12-22] MEDS ORDERED: Naloxone 0.4 MG/ML INJ IVP PRN (20:26)
[2021-12-22] MEDS ORDERED: Dextrose 4 GM Chewable Tablets PO PRN ×2 (20:36)
[2021-12-22] MEDS ORDERED: *HR* Dextrose 50 % in Water (Syg) 50 ML SYRINGE IVP PRN (20:36)
[2021-12-22] MEDS ORDERED: D5% in Water 1,000 ML IVC PRN (20:36)
[2021-12-22 22:01] LABS: Bilirubin,Urine Negative (Negative); Blood,Urine Negative (Negative); Clarity,Urine Clear (Clear); Color,Urine Light-Yellow (Yellow); Glucose,Urine (UA) Normal (Normal); Ketones,Urine Negative (Negative); Leukocyte Esterase,Urine Negative (Negative); Nitrite,Urine Negative (Negative); Protein,Urine Trace mg/dL (Neg-Trace); Specific Gravity,Urine 1.016 (1.010-1.025); Urobilinogen,Urine Normal (Normal)
[2021-12-22] MEDS ORDERED: Insulin DETEMIR 100 UNIT/ML X5UNITS SUBQ PRN (22:22)
[2021-12-22] MEDS ORDERED: Cefepime HCl 2,000 MG in 0.9 % Sodium Chloride Mini Bag 100 ML IVPB SCH (23:45)
[2021-12-22 23:51] LABS: Potassium 5.2 mEq/L (3.5-5.1)
[2021-12-23] MEDS ORDERED: Piperacillin/Tazobactam 3.375 GM in 0.9 % Sodium Chloride Mini Bag 100 ML IVPB SCH
[2021-12-23] MEDS: Insulin LISPRO 300 UNITS/3 ML VIAL SUBQ SCH ×4 (00:47→17:55)
[2021-12-23] MEDS ORDERED: Calcium Gluconate 1gm/50mL 1 GM/50 ML BAG IVPB ONE (01:23)
[2021-12-23] MEDS ORDERED: Magnesium Sulfate 1 GM/102 ML PIGGYBACK IVPB ONE (01:23)
[2021-12-23 01:42] LABS: Adenovirus Not Detected (Not Detect); Bordetella Pertussis Not Detected (Not Detect); Chlamydophila pneumoniae Not Detected (Not Detect); Coronavirus 229E Not Detected (Not Detect); Coronavirus HKU1 Not Detected (Not Detect); Coronavirus NL63 Not Detected (Not Detect); Coronavirus OC43 Not Detected (Not Detect); Human Metapneumovirus Not Detected (Not Detect); Human Rhinovirus/Enterovirus Not Detected (Not Detect); Influenza A Subtype 2009 H1 Not Detected (Not Detect); Influenza B Not Detected (Not Detect); Mycoplasma pneumoniae Not Detected (Not Detect); Parainfluenza Virus 1 Not Detected (Not Detect); Parainfluenza Virus 2 Not Detected (Not Detect); Parainfluenza Virus 3 Not Detected (Not Detect); Parainfluenza Virus 4 Not Detected (Not Detect); Respiratory Syncytial Virus Not Detected (Not Detect); SARS-CoV-2 Not Detected (Not Detect)
[2021-12-23] MEDS: traZODone 50 MG TABLET PO PRN ×2 (01:59→21:16)
[2021-12-23] MEDS: Baclofen 10 MG TABLET PO PRN ×2 (01:59→21:16)
[2021-12-23 03:00] LABS: Basophils % 0.6 %; Eosinophils # 0.1 K/mcL (0.0-0.6); Eosinophils % 2.2 %; Hematocrit 31.6 % (37.5-50.1); Hemoglobin 10.1 g/dL (12.9-16.9); Immature Granulocytes % 1.4 % (0-4); Lymphocytes # 1.1 K/mcL (0.6-4.6); Mean Corpuscular Hemoglobin 28.4 pg (28.0-33.3); Mean Corpuscular Volume 88.8 fL (83.0-100.0); Mean Platelet Volume 10.4 fL (9.4-12.4); Monocytes # 0.5 K/mcL (0.0-1.3); Monocytes % 8.8 %; Neutrophils # 3.4 K/mcL (1.6-8.9); Platelet Count 185 K/mcL (140-400); Red Blood Count 3.56 M/mcL (4.19-5.50); Red Cell Distribution Width 17.5 % (11.5-14.5); White Blood Count 5.1 K/mcL (4.3-11.1)
[2021-12-23 03:18] LABS: Estimated Average Glucose 166 mg/dl; Hemoglobin A1C 7.4 %
[2021-12-23 03:21] LABS: Calcium 8.7 mg/dL (8.6-10.3); Chol/HDL Ratio 5.4 (0-4.9); Magnesium 1.7 mg/dL (1.6-2.6); Potassium 4.7 mEq/L (3.5-5.1)
[2021-12-23 03:42] LABS: Folate 18.9 ng/mL (3.0-16.0)
[2021-12-23] MEDS: Metoprolol XL (24 HR) Succ 50 MG TAB.ER.24H PO SCH ×2 (08:01→21:04)
[2021-12-23] MEDS: Apixaban 5 MG TABLET PO SCH ×2 (08:02→21:05)
[2021-12-23] MEDS: Cefepime HCl 2,000 MG in 0.9 % Sodium Chloride 10 ML IVP SCH (08:02)
[2021-12-23] MEDS: (Ipratropium Bromide 15 ML Spray) NS SCH ×2 (08:03→21:01)
[2021-12-23] MEDS: Lactulose Oral Soln 20 GM/30 ML UDC PO SCH ×2 (08:03→21:04)
[2021-12-23] MEDS: Fluticasone Propionate Nasal 50 MCG/SPRAY BOTTLE NS SCH ×2 (08:04→21:21)
[2021-12-23] MEDS: Tiotropium 10 INH DOSE IH SCH (10:08)
[2021-12-23] MEDS: polyethylene glycoL 3350 17 GM POWD.PACK PO SCH (16:11)
[2021-12-23] MEDS: Vancomycin 1,250 MG/262.5 ML IV.SOLN IVPB SCH (17:54)
[2021-12-23] MEDS: Pregabalin 50 MG CAPSULE PO SCH (21:04)
[2021-12-23] MEDS: Melatonin 3 MG TABLET PO SCH (21:05)
[2021-12-24] MEDS: Insulin LISPRO 300 UNITS/3 ML VIAL SUBQ SCH ×4 (00:35→17:36)
[2021-12-24] MEDS: Tiotropium 10 INH DOSE IH SCH (07:40)
[2021-12-24] MEDS: Apixaban 5 MG TABLET PO SCH ×2 (07:53→20:31)
[2021-12-24] MEDS: Lactulose Oral Soln 20 GM/30 ML UDC PO SCH ×2 (07:54→20:30)
[2021-12-24] MEDS: Cefepime HCl 2,000 MG in 0.9 % Sodium Chloride 10 ML IVP SCH ×2 (07:54→20:30)
[2021-12-24] MEDS: polyethylene glycoL 3350 17 GM POWD.PACK PO SCH (07:54)
[2021-12-24] MEDS: Metoprolol XL (24 HR) Succ 50 MG TAB.ER.24H PO SCH ×2 (07:54→20:32)
[2021-12-24] MEDS: Fluticasone Propionate Nasal 50 MCG/SPRAY BOTTLE NS SCH ×2 (07:55→20:32)
[2021-12-24] MEDS: (Ipratropium Bromide 15 ML Spray) NS SCH ×2 (11:34→20:32)
[2021-12-24] MEDS: Vancomycin 1,250 MG/262.5 ML IV.SOLN IVPB SCH (18:38)
[2021-12-24] MEDS: Pregabalin 50 MG CAPSULE PO SCH (20:31)
[2021-12-24] MEDS: Melatonin 3 MG TABLET PO SCH (20:31)
[2021-12-24] MEDS: traZODone 50 MG TABLET PO PRN (23:04)
[2021-12-24] MEDS: Baclofen 10 MG TABLET PO PRN (23:04)
[2021-12-25] MEDS: Insulin LISPRO 300 UNITS/3 ML VIAL SUBQ SCH ×3 (00:30→12:17)
[2021-12-25 05:42] LABS: Basophils % 0.4 %; Eosinophils # 0.2 K/mcL (0.0-0.6); Eosinophils % 4.2 %; Hematocrit 33.7 % (37.5-50.1); Hemoglobin 10.9 g/dL (12.9-16.9); Immature Granulocytes % 0.9 % (0-4); Lymphocytes % 17.2 %; Mean Corpuscular HGB Conc 32.3 g/dL (31.6-35.5); Mean Corpuscular Hemoglobin 28.7 pg (28.0-33.3); Mean Corpuscular Volume 88.7 fL (83.0-100.0); Monocytes # 0.4 K/mcL (0.0-1.3); Monocytes % 7.8 %; Neutrophils # 3.8 K/mcL (1.6-8.9); Platelet Count 193 K/mcL (140-400); Red Cell Distribution Width 17.6 % (11.5-14.5); Segmented Neutrophils % 69.5 %; White Blood Count 5.5 K/mcL (4.3-11.1)
[2021-12-25 06:10] LABS: BUN/Creatinine Ratio 18 (6-26); Blood Urea Nitrogen 20 mg/dL (8-23); Calcium 8.8 mg/dL (8.6-10.3); Carbon Dioxide 23 mEq/L (23-29); Chloride 106 mEq/L (98-107); Glucose 135 mg/dL (70-105); Osmolality,Calculated 287 (280-300); Potassium 4.8 mEq/L (3.5-5.1); Sodium 136 mEq/L (136-145); eGFR For African Americans > 60 (> 60); eGFR For Non-African Americans > 60 (> 60)
[2021-12-25] MEDS: Cefepime HCl 2,000 MG in 0.9 % Sodium Chloride 10 ML IVP SCH (08:09)
[2021-12-25] MEDS ORDERED: Artificial Tears SOLN 15 ML BOTTLE BOTH EYES PRN (08:18)
[2021-12-25] MEDS: Tiotropium 10 INH DOSE IH SCH (09:35)
[2021-12-25] MEDS: Apixaban 5 MG TABLET PO SCH (09:52)
[2021-12-25] MEDS: Fluticasone Propionate Nasal 50 MCG/SPRAY BOTTLE NS SCH (09:53)
[2021-12-25] MEDS: Lactulose Oral Soln 20 GM/30 ML UDC PO SCH (09:53)
[2021-12-25] MEDS: polyethylene glycoL 3350 17 GM POWD.PACK PO SCH (09:54)
[2021-12-25] MEDS: (Ipratropium Bromide 15 ML Spray) NS SCH (09:57)
[2021-12-25 11:21] VITALS: BP 108/65; PULSE 77; TEMP 97.6; O2SAT 98
[2021-12-25] MEDS: Metoprolol XL (24 HR) Succ 50 MG TAB.ER.24H PO SCH (12:33)
== END 2021-12-25 12:55 | disposition home or self-care (01) | DRG 871 ==
LOC: EMEROOARM 17:10 → 3NENU 17:10 → SUATTDRO 21:10 → 3NENU 21:58
PROVIDERS: ADMIT Internal Medicine; ATTEND Internal Medicine